=== PATIENT | female | born 1985 | race Caucasian/White ===

== ENCOUNTER → 2019-04-07 08:39 | Outpatient (BNVA) | payer MEDICARE, SELFPAY | PROVIDERS: Family Provider Family Medicine; PCP Family Medicine; Referring Provider Nurse Practitioner Family; Visit Provider Specialist | DX: R25.1 Tremor, unspecified (principal); M25.531 Pain in right wrist; M25.539 Pain in unspecified wrist | CPT/HCPCS: 95908 ==

== ENCOUNTER → 2019-04-22 08:54 | Outpatient (BNVA) | payer MEDICARE, SELFPAY | PROVIDERS: Family Provider Family Medicine; PCP Family Medicine; Visit Provider Nurse Practitioner Psychiatric/Mental Health | DX: F31.62 Bipolar disorder, current episode mixed, moderate (principal); F41.0 Panic disorder [episodic paroxysmal anxiety]; F70 Mild intellectual disabilities | CPT/HCPCS: 99213 ==

== ENCOUNTER → 2019-05-25 07:40 | Outpatient (BNVA) | payer MEDICARE, SELFPAY | PROVIDERS: Family Provider Family Medicine; PCP Family Medicine; Visit Provider Nurse Practitioner Psychiatric/Mental Health | DX: F31.62 Bipolar disorder, current episode mixed, moderate (principal); F41.0 Panic disorder [episodic paroxysmal anxiety]; F70 Mild intellectual disabilities | CPT/HCPCS: 99214 ==

== ENCOUNTER → 2019-06-15 08:15 | Outpatient (BNVA) | payer MEDICARE, SELFPAY | PROVIDERS: Family Provider Family Medicine; PCP Family Medicine; Visit Provider Nurse Practitioner Psychiatric/Mental Health | DX: F31.62 Bipolar disorder, current episode mixed, moderate (principal); F41.0 Panic disorder [episodic paroxysmal anxiety]; F70 Mild intellectual disabilities | CPT/HCPCS: 99214 ==

== ENCOUNTER → 2019-07-12 08:08 | Outpatient (BNVA) | payer MEDICARE, SELFPAY | PROVIDERS: Family Provider Family Medicine; PCP Family Medicine; Visit Provider Nurse Practitioner Psychiatric/Mental Health | DX: F31.62 Bipolar disorder, current episode mixed, moderate (principal); F41.0 Panic disorder [episodic paroxysmal anxiety]; F70 Mild intellectual disabilities | CPT/HCPCS: 99214 ==

== ENCOUNTER 2019-07-28 16:41 | Inpatient (IN) | payer MEDICARE, SELFPAY ==
[2019-07-28 16:49] VITALS: BP 151/99; PULSE 120; RESP 20; TEMP 37.3; O2SAT 98; BMI 46.5
[2019-07-28 16:59] VITALS: O2SAT 97
--- NOTE | 2019-07-28 17:08 | W.ED.OVERDOS ---
Documented by User: You Rudd DO 07/29/19 18:31 HPI - Overdose General: Chief Complaint: Overdose Stated Complaint: intentional overdose Time Seen by Provider: 07/28/19 16:53 History of Present Illness: HPI Narrative: 33-year-old female presents emergency room after an overdose of hydrocodone. She has an empty bottle of hydrocodone 06/26/2024 claiming she took 4 to 26 tablets. She had gotten into a fight with her who claims he was going to divorce her she got quite angry and took those then with the intent of harming herself at about 630 this afternoon 1/2-hour before presentation to the emergency room she did admit and rescue for this attempt was likely. She has had previous suicide attempts in the past x2 is a younger child. She denies any recent illness any GI or symptoms any fever sweats or chills. MD complaint: intentional overdose Onset (ago): minute(s) (30) Time: 16:30 Timing confirmed by: family member Review of Systems Const: Denies: fever(s), chills, body aches, change in appetite, fatigue or malaise ENMT: Denies: throat pain, ear or mastoid pain, nasal discharge or nasal congestion Card: Denies: chest pain, edema, dyspnea on exertion or orthopnea Resp: Denies: dyspnea, productive cough or non-productive cough GI: Denies: abdominal pain, nausea, vomiting, hematemesis, coffee ground emesis, diarrhea, constipation, bloating, hematochezia or melena : Denies: flank pain, difficulty voiding, dysuria, urinary frequency or urinary urgency Skin/Breast: Denies: rash or pruritus PFSH ED PFSH: Medical History Bipolar disorder, current episode mixed, moderate Idiopathic mild intellectual disability Panic disorder without agoraphobia with moderate panic attacks Social History Smoking and tobacco status: never smoked Female Reproductive History: Date of last menstrual period: 07/28/19 Physical Exam Const: COMMON NORMALS: no acute distress GENERAL APPEARANCE: cooperative and comfortable ORIENTATION/CONSCIOUSNESS: Yes awake, Yes oriented to person, Yes oriented to place and Yes oriented to time HENMT: COMMON NORMALS: normocephalic, atraumatic, hearing grossly normal bilaterally, external ears normal, EAC's normal, TM's normal bilaterally, Normal nasal mucous membranes and turbinates present, moist oral mucous membranes and oropharynx normal HEAD & SCALP: normocephalic and atraumatic NOSE: Normal nasal mucous membranes and turbinates present EXTERNAL EAR: Yes external ears normal EXTERNAL AUDITORY CANAL: EAC's normal TYMPANIC MEMBRANE: TM's normal bilaterally Eye: COMMON NORMALS: Equal, round and reactive pupils present, EOMs intact bilaterally, conjunctivae normal and no scleral icterus CONJUNCTIVA: Yes conjunctivae normal PUPIL: Yes Equal, round and reactive pupils present Neck/C-Spine: COMMON NORMALS: full ROM, no lymphadenopathy, supple and no JVD Lymph: LYMPHATIC: no lymphadenopathy noted and no lymphedema noted Resp: COMMON NORMALS: normal respiratory effort, No retractions, No use of accessory muscles and clear to auscultation bilaterally AUSCULTATION: clear to auscultation bilaterally Cardio: COMMON NORMALS: no JVD, regular rate, regular rhythm and No murmurs present (Cardio) RATE: regular rate RHYTHM: regular rhythm GI: COMMON NORMALS: Soft to palpation and No hepatosplenomegaly present AUSCULTATION: Yes normoactive bowel sounds PALPATION: Yes Soft to palpation, No Tenderness to palpation present (GI), No Guarding due to palpation present (GI) and Yes No hepatosplenomegaly present Extremity: COMMON NORMALS: normal to inspection, capillary refill normal, no clubbing, cyanosis or edema, no calf tenderness and no pedal edema Neuro: SENSORIUM/ORIENTATION: Yes oriented to person, Yes oriented to place and Yes oriented to time Skin: COMMON NORMALS: no rashes or lesions noted GENERAL SKIN EXAM: no rashes or lesions noted Course Vital Signs: Vital signs: Vital Signs Temperature 98.7 F 07/29/19 14:00 Pulse Rate 104 H 07/29/19 14:00 Respiratory Rate 18 07/29/19 14:00 Blood Pressure 132/90 07/29/19 14:00 Pulse Oximetry 98 07/29/19 14:00 MDM - Overdose MDM Narrative: Medical decision making narrative: Care turned over at change of shift to Dr. Estrada. Initial acetaminophen level was in the normal range. She will need another level to further evaluate whether or not she is safe to go to the psychiatric floor or if she will need to go to the ICU for the potential overdose see Dr. Estrada's notes for final diagnosis and definitive disposition Lab Data: Labs: Lab Results 07/28/19 07/28/19 07/28/19 Range/Units 00:58 17:20 17:20 WBC 9.8 (4.0-10.0) 10^3/ uL RBC 4.78 (4.1-5.3) 10^6/u L Hgb 14.0 (11.5-15.3) g/dL Hct 43.4 (37.0-47.0) % MCV 90.8 (81-99) fL MCH 29.3 (28.0-34.0) pg MCHC 32.3 (30.0-36.0) g/dL RDW 12.4 (12.1-15.1) % Plt Count 344 (130-400) 10^3/c mm MPV 10.3 (7.4-10.4) fL Neut % (Auto) 55.4 % Lymph % (Auto) 33.1 % Stevens % (Auto) 7.0 % Eos % (Auto) 3.0 % Baso % (Auto) 1.1 % Neut # (Auto) 5.4 (1.8-7.7) 10^3/u L Lymph # (Auto) 3.2 (0.8-4.8) 10^3/u L Stevens # (Auto) 0.7 (0.2-0.9) 10^3/u L Eos # (Auto) 0.3 (0.0-0.8) 10^3/u L Baso # (Auto) 0.1 (0.0-0.1) 10^3/u L Nucleated RBC % (a uto) 0 % Nucleated RBCs # 0.0 /100WBC Specimen Type Sample Site ABG pH (7.35-7.45) ABG pCO2 (35-45) mmHg ABG pO2 (80.0-100.0) mmH g ABG HCO3 (22-26) mmol/L ABG Base Excess (-2.0-2.0) mmol/ L John Test Hematocrit (37-47) % O2 Delivery Device Finishing Room Operator ID Sodium 140 (136-145) mmol/L Potassium 3.7 (3.5-5.1) mmol/L Chloride 103 (98-107) mmol/L Carbon Dioxide 21 L (22-29) mmol/L Anion Gap 19.7 H (5-19) BUN 13 (6-20) mg/dL Creatinine 0.9 (0.5-0.9) mg/dL GFR Calculation 73.0 L (90-130) mL/min Glucose 100 (65-115) mg/dL Calculated Osmolal ity 286 (285-295) mOsm/k g Lactic Acid (0.5-2.2) mmol/L Lactic Acid (Sepsi s) 2.4 H (0.5-2.2) mmol/L Calcium 10.2 (8.5-10.5) mg/dL Total Bilirubin 0.5 (0.15-1.2) mg/dL AST 32 (0-32) U/L ALT 38 H (0-33) U/L Alkaline Phosphata se 75 (35-105) IU/L Total Protein 7.9 (6.6-8.7) g/dL Albumin 4.9 (3.5-5.2) g/dL Globulin 3.0 (1.3-4.6) g/dL TSH 3.44 (0.27-4.20) uIU/ mL HCG, Qual (Negative) Urine Color (Yellow) Urine Appearance (CLEAR) Urine pH (5-7) Ur Specific Gravit y (1.005-1.030) Urine Protein (Negative) Urine Glucose (UA) (Normal) Urine Ketones (Negative) Urine Blood (Negative) Urine Nitrate (Negative) Urine Bilirubin (NEGATIVE) Urine Urobilinogen (Negative) mg/dL Ur Leukocyte Haley ase (Negative) Urine RBC (0-2) /hpf Urine WBC (0-5) /hpf Ur Squamous Epith Cells (0-5) Calcium Oxalate Cr ystal /hpf Amorphous Sediment Urine Bacteria (NONE) Fine Granular Cast s /lpf Salicylates 0.6 L (3-10) mg/dL Urine Opiates Scre en (Negative) ng/mL Acetaminophen 10.8 (10-30) ug/mL Ur Barbiturates Sc reen (Negative) ng/mL Ur Phencyclidine S crn (Negative) ng/mL Ur Amphetamines Sc reen (Negative) ng/mL U Benzodiazepines Scrn (Negative) ng/mL Urine Cocaine Scre en (Negative) ng/mL U Marijuana (THC) Screen (Negative) ng/mL Ethyl Alcohol < 10 (0-10) mg/dL 07/28/19 07/28/19 07/28/19 Range/Units 18:20 18:20 18:20 WBC (4.0-10.0) 10^3/ uL RBC (4.1-5.3) 10^6/u L Hgb (11.5-15.3) g/dL Hct (37.0-47.0) % MCV (81-99) fL MCH (28.0-34.0) pg MCHC (30.0-36.0) g/dL RDW (12.1-15.1) % Plt Count (130-400) 10^3/c mm MPV (7.4-10.4) fL Neut % (Auto) % Lymph % (Auto) % Stevens % (Auto) % Eos % (Auto) % Baso % (Auto) % Neut # (Auto) (1.8-7.7) 10^3/u L Lymph # (Auto) (0.8-4.8) 10^3/u L Stevens # (Auto) (0.2-0.9) 10^3/u L Eos # (Auto) (0.0-0.8) 10^3/u L Baso # (Auto) (0.0-0.1) 10^3/u L Nucleated RBC % (a uto) % Nucleated RBCs # /100WBC Specimen Type Sample Site ABG pH (7.35-7.45) ABG pCO2 (35-45) mmHg ABG pO2 (80.0-100.0) mmH g ABG HCO3 (22-26) mmol/L ABG Base Excess (-2.0-2.0) mmol/ L John Test Hematocrit (37-47) % O2 Delivery Device Finishing Room Operator ID Sodium (136-145) mmol/L Potassium (3.5-5.1) mmol/L Chloride (98-107) mmol/L Carbon Dioxide (22-29) mmol/L Anion Gap (5-19) BUN (6-20) mg/dL Creatinine (0.5-0.9) mg/dL GFR Calculation (90-130) mL/min Glucose (65-115) mg/dL Calculated Osmolal ity (285-295) mOsm/k g Lactic Acid (0.5-2.2) mmol/L Lactic Acid (Sepsi s) (0.5-2.2) mmol/L Calcium (8.5-10.5) mg/dL Total Bilirubin (0.15-1.2) mg/dL AST (0-32) U/L ALT (0-33) U/L Alkaline Phosphata se (35-105) IU/L Total Protein (6.6-8.7) g/dL Albumin (3.5-5.2) g/dL Globulin (1.3-4.6) g/dL TSH (0.27-4.20) uIU/ mL HCG, Qual Negative (Negative) Urine Color Yellow (Yellow) Urine Appearance Hazy A (CLEAR) Urine pH 5 (5-7) Ur Specific Gravit y 1.030 (1.005-1.030) Urine Protein 1+ H (Negative) Urine Glucose (UA) Norm (Normal) Urine Ketones Negative (Negative) Urine Blood Neg (Negative) Urine Nitrate Negative (Negative) Urine Bilirubin Neg (NEGATIVE) Urine Urobilinogen Norm (Negative) mg/dL Ur Leukocyte Haley ase Negative (Negative) Urine RBC 0-4 H (0-2) /hpf Urine WBC None (0-5) /hpf Ur Squamous Epith Cells 0-4 H (0-5) Calcium Oxalate Cr ystal Too numerous to c nt H /hpf Amorphous Sediment 1+ Urine Bacteria 1+ H (NONE) Fine Granular Cast s 15-25 H /lpf Salicylates (3-10) mg/dL Urine Opiates Scre en Positive H (Negative) ng/mL Acetaminophen (10-30) ug/mL Ur Barbiturates Sc reen Negative (Negative) ng/mL Ur Phencyclidine S crn Negative (Negative) ng/mL Ur Amphetamines Sc reen Negative (Negative) ng/mL U Benzodiazepines Scrn Negative (Negative) ng/mL Urine Cocaine Scre en Negative (Negative) ng/mL U Marijuana (THC) Screen Negative (Negative) ng/mL Ethyl Alcohol (0-10) mg/dL 07/28/19 07/28/19 07/28/19 Range/Units 20:30 20:58 22:00 WBC (4.0-10.0) 10^3/ uL RBC (4.1-5.3) 10^6/u L Hgb (11.5-15.3) g/dL Hct (37.0-47.0) % MCV (81-99) fL MCH (28.0-34.0) pg MCHC (30.0-36.0) g/dL RDW (12.1-15.1) % Plt Count (130-400) 10^3/c mm MPV (7.4-10.4) fL Neut % (Auto) % Lymph % (Auto) % Stevens % (Auto) % Eos % (Auto) % Baso % (Auto) % Neut # (Auto) (1.8-7.7) 10^3/u L Lymph # (Auto) (0.8-4.8) 10^3/u L Stevens # (Auto) (0.2-0.9) 10^3/u L Eos # (Auto) (0.0-0.8) 10^3/u L Baso # (Auto) (0.0-0.1) 10^3/u L Nucleated RBC % (a uto) % Nucleated RBCs # /100WBC Specimen Type Venous Sample Site Not specified ABG pH 7.40 (7.35-7.45) ABG pCO2 36.7 (35-45) mmHg ABG pO2 51.1 L (80.0-100.0) mmH g ABG HCO3 22.9 (22-26) mmol/L ABG Base Excess -1.5 (-2.0-2.0) mmol/ L John Test N/a Hematocrit 45.0 (37-47) % O2 Delivery Device Room air Finishing Room Operator ID josé manuel Sodium (136-145) mmol/L Potassium (3.5-5.1) mmol/L Chloride (98-107) mmol/L Carbon Dioxide (22-29) mmol/L Anion Gap (5-19) BUN (6-20) mg/dL Creatinine (0.5-0.9) mg/dL GFR Calculation (90-130) mL/min Glucose (65-115) mg/dL Calculated Osmolal ity (285-295) mOsm/k g Lactic Acid 2.2 (0.5-2.2) mmol/L Lactic Acid (Sepsi s) (0.5-2.2) mmol/L Calcium (8.5-10.5) mg/dL Total Bilirubin (0.15-1.2) mg/dL AST (0-32) U/L ALT (0-33) U/L Alkaline Phosphata se (35-105) IU/L Total Protein (6.6-8.7) g/dL Albumin (3.5-5.2) g/dL Globulin (1.3-4.6) g/dL TSH (0.27-4.20) uIU/ mL HCG, Qual (Negative) Urine Color (Yellow) Urine Appearance (CLEAR) Urine pH (5-7) Ur Specific Gravit y (1.005-1.030) Urine Protein (Negative) Urine Glucose (UA) (Normal) Urine Ketones (Negative) Urine Blood (Negative) Urine Nitrate (Negative) Urine Bilirubin (NEGATIVE) Urine Urobilinogen (Negative) mg/dL Ur Leukocyte Haley ase (Negative) Urine RBC (0-2) /hpf Urine WBC (0-5) /hpf Ur Squamous Epith Cells (0-5) Calcium Oxalate Cr ystal /hpf Amorphous Sediment Urine Bacteria (NONE) Fine Granular Cast s /lpf Salicylates (3-10) mg/dL Urine Opiates Scre en (Negative) ng/mL Acetaminophen 10.2 (10-30) ug/mL Ur Barbiturates Sc reen (Negative) ng/mL Ur Phencyclidine S crn (Negative) ng/mL Ur Amphetamines Sc reen (Negative) ng/mL U Benzodiazepines Scrn (Negative) ng/mL Urine Cocaine Scre en (Negative) ng/mL U Marijuana (THC) Screen (Negative) ng/mL Ethyl Alcohol (0-10) mg/dL Discharge Plan Discharge Patient Disposition: Admitted As Inpatient Admit Provider: Jalil Lockhart Clinical Impression: Suicidal ideation, Overdose Condition: Stable Referrals: Jarrod Noriega MD [Physician] - 08/10/19 1:30 pm Aisha Dennison MD [Primary Care Provider] - Lisa Ramos PMHNP [Staff Physician] - 09/06/19 1:30 pm Discharge Date/Time: 07/29/19 00:12 Sign Out Sign Out Data: Patient Sign Out occurred on 07/28/19 at 18:43. Patient's care was discussed, and care was transferred from to Alma Rosa Coffman. Coding Level of Care Code ED Mechanical Cad Designer for Chg Fwd Exam Comprehensive Documented by User: Alma Rosa Coffman 07/28/19 23:29 HPI - Overdose General: Chief Complaint: Overdose Stated Complaint: intentional overdose Time Seen by Provider: 07/28/19 16:53 PFSH ED PFSH: Medical History Bipolar disorder, current episode mixed, moderate Idiopathic mild intellectual disability Panic disorder without agoraphobia with moderate panic attacks Social History Smoking and tobacco status: never smoked Course ED course: 1800 -Case inherited by me at change of shift from Dr. Rudd. Please see his portion of this note for his history, physical exam and medical decision-making notes. Patient affirms to me that she took 24 [place] tablets at 4:30 PM. Patient at this time exhibits no sign of drowsiness, upset stomach or otherwise. Case was reviewed with poison control and based upon the amount of Tylenol this is not a toxic ingestion to the patient. I will go ahead and check a 4-hour Tylenol level just to be safe but at this time it looks as though the patient will not need ICU admission. Vital Signs: Vital signs: Vital Signs Temperature 98.7 F 07/29/19 14:00 Pulse Rate 104 H 07/29/19 14:00 Respiratory Rate 18 07/29/19 14:00 Blood Pressure 132/90 07/29/19 14:00 Pulse Oximetry 98 07/29/19 14:00 MDM - Overdose MDM Narrative: Medical decision making narrative: Colleen is a nice 33-year-old female comes in stating she took 24 06/26/2024 [place] tablets. The patient never exhibited any sign of opiate toxicity. Her Tylenol level calculated was below the lethal ingestion limit but also she had no evidence of Tylenol toxicity on the lab. Oddly she had a urinalysis that showed too numerous to count calcium oxalate crystals. Patient does not think that she is had a kidney stone before but cannot remember definitively. I reviewed this with poison control and they state with a normal pH on her blood gas, no anion gap and no sign of intoxication or sedation they do not believe there to be any sign of a toxic alcohol. They believe the patient can safely go to the neuropsychiatric unit. I reviewed this with Dr. Lockhart and he is in agreement. Patient's been here almost 7 hours and has not demonstrated any sign of intoxication. I have asked the patient on 2 different occasions and she is adamant she would not do this. She is claiming now that her taking the hydroceles and attention seeking issue but she still wants to go to the [facility]. At this time the patient does appear clinically stable and per poison control's recommendations I will see the patient there. Lab Data: Attestation: I reviewed the patient's lab results. Labs: Lab Results 07/28/19 07/28/19 07/28/19 Range/Units 00:58 17:20 17:20 WBC 9.8 (4.0-10.0) 10^3/ uL RBC 4.78 (4.1-5.3) 10^6/u L Hgb 14.0 (11.5-15.3) g/dL Hct 43.4 (37.0-47.0) % MCV 90.8 (81-99) fL MCH 29.3 (28.0-34.0) pg MCHC 32.3 (30.0-36.0) g/dL RDW 12.4 (12.1-15.1) % Plt Count 344 (130-400) 10^3/c mm MPV 10.3 (7.4-10.4) fL Neut % (Auto) 55.4 % Lymph % (Auto) 33.1 % Stevens % (Auto) 7.0 % Eos % (Auto) 3.0 % Baso % (Auto) 1.1 % Neut # (Auto) 5.4 (1.8-7.7) 10^3/u L Lymph # (Auto) 3.2 (0.8-4.8) 10^3/u L Stevens # (Auto) 0.7 (0.2-0.9) 10^3/u L Eos # (Auto) 0.3 (0.0-0.8) 10^3/u L Baso # (Auto) 0.1 (0.0-0.1) 10^3/u L Nucleated RBC % (a uto) 0 % Nucleated RBCs # 0.0 /100WBC Specimen Type Sample Site ABG pH (7.35-7.45) ABG pCO2 (35-45) mmHg ABG pO2 (80.0-100.0) mmH g ABG HCO3 (22-26) mmol/L ABG Base Excess (-2.0-2.0) mmol/ L John Test Hematocrit (37-47) % O2 Delivery Device Finishing Room Operator ID Sodium 140 (136-145) mmol/L Potassium 3.7 (3.5-5.1) mmol/L Chloride 103 (98-107) mmol/L Carbon Dioxide 21 L (22-29) mmol/L Anion Gap 19.7 H (5-19) BUN 13 (6-20) mg/dL Creatinine 0.9 (0.5-0.9) mg/dL GFR Calculation 73.0 L (90-130) mL/min Glucose 100 (65-115) mg/dL Calculated Osmolal ity 286 (285-295) mOsm/k g Lactic Acid (0.5-2.2) mmol/L Lactic Acid (Sepsi s) 2.4 H (0.5-2.2) mmol/L Calcium 10.2 (8.5-10.5) mg/dL Total Bilirubin 0.5 (0.15-1.2) mg/dL AST 32 (0-32) U/L ALT 38 H (0-33) U/L Alkaline Phosphata se 75 (35-105) IU/L Total Protein 7.9 (6.6-8.7) g/dL Albumin 4.9 (3.5-5.2) g/dL Globulin 3.0 (1.3-4.6) g/dL TSH 3.44 (0.27-4.20) uIU/ mL HCG, Qual (Negative) Urine Color (Yellow) Urine Appearance (CLEAR) Urine pH (5-7) Ur Specific Gravit y (1.005-1.030) Urine Protein (Negative) Urine Glucose (UA) (Normal) Urine Ketones (Negative) Urine Blood (Negative) Urine Nitrate (Negative) Urine Bilirubin (NEGATIVE) Urine Urobilinogen (Negative) mg/dL Ur Leukocyte Haley ase (Negative) Urine RBC (0-2) /hpf Urine WBC (0-5) /hpf Ur Squamous Epith Cells (0-5) Calcium Oxalate Cr ystal /hpf Amorphous Sediment Urine Bacteria (NONE) Fine Granular Cast s /lpf Salicylates 0.6 L (3-10) mg/dL Urine Opiates Scre en (Negative) ng/mL Acetaminophen 10.8 (10-30) ug/mL Ur Barbiturates Sc reen (Negative) ng/mL Ur Phencyclidine S crn (Negative) ng/mL Ur Amphetamines Sc reen (Negative) ng/mL U Benzodiazepines Scrn (Negative) ng/mL Urine Cocaine Scre en (Negative) ng/mL U Marijuana (THC) Screen (Negative) ng/mL Ethyl Alcohol < 10 (0-10) mg/dL 07/28/19 07/28/19 07/28/19 Range/Units 18:20 18:20 18:20 WBC (4.0-10.0) 10^3/ uL RBC (4.1-5.3) 10^6/u L Hgb (11.5-15.3) g/dL Hct (37.0-47.0) % MCV (81-99) fL MCH (28.0-34.0) pg MCHC (30.0-36.0) g/dL RDW (12.1-15.1) % Plt Count (130-400) 10^3/c mm MPV (7.4-10.4) fL Neut % (Auto) % Lymph % (Auto) % Stevens % (Auto) % Eos % (Auto) % Baso % (Auto) % Neut # (Auto) (1.8-7.7) 10^3/u L Lymph # (Auto) (0.8-4.8) 10^3/u L Stevens # (Auto) (0.2-0.9) 10^3/u L Eos # (Auto) (0.0-0.8) 10^3/u L Baso # (Auto) (0.0-0.1) 10^3/u L Nucleated RBC % (a uto) % Nucleated RBCs # /100WBC Specimen Type Sample Site ABG pH (7.35-7.45) ABG pCO2 (35-45) mmHg ABG pO2 (80.0-100.0) mmH g ABG HCO3 (22-26) mmol/L ABG Base Excess (-2.0-2.0) mmol/ L John Test Hematocrit (37-47) % O2 Delivery Device Finishing Room Operator ID Sodium (136-145) mmol/L Potassium (3.5-5.1) mmol/L Chloride (98-107) mmol/L Carbon Dioxide (22-29) mmol/L Anion Gap (5-19) BUN (6-20) mg/dL Creatinine (0.5-0.9) mg/dL GFR Calculation (90-130) mL/min Glucose (65-115) mg/dL Calculated Osmolal ity (285-295) mOsm/k g Lactic Acid (0.5-2.2) mmol/L Lactic Acid (Sepsi s) (0.5-2.2) mmol/L Calcium (8.5-10.5) mg/dL Total Bilirubin (0.15-1.2) mg/dL AST (0-32) U/L ALT (0-33) U/L Alkaline Phosphata se (35-105) IU/L Total Protein (6.6-8.7) g/dL Albumin (3.5-5.2) g/dL Globulin (1.3-4.6) g/dL TSH (0.27-4.20) uIU/ mL HCG, Qual Negative (Negative) Urine Color Yellow (Yellow) Urine Appearance Hazy A (CLEAR) Urine pH 5 (5-7) Ur Specific Gravit y 1.030 (1.005-1.030) Urine Protein 1+ H (Negative) Urine Glucose (UA) Norm (Normal) Urine Ketones Negative (Negative) Urine Blood Neg (Negative) Urine Nitrate Negative (Negative) Urine Bilirubin Neg (NEGATIVE) Urine Urobilinogen Norm (Negative) mg/dL Ur Leukocyte Haley ase Negative (Negative) Urine RBC 0-4 H (0-2) /hpf Urine WBC None (0-5) /hpf Ur Squamous Epith Cells 0-4 H (0-5) Calcium Oxalate Cr ystal Too numerous to c nt H /hpf Amorphous Sediment 1+ Urine Bacteria 1+ H (NONE) Fine Granular Cast s 15-25 H /lpf Salicylates (3-10) mg/dL Urine Opiates Scre en Positive H (Negative) ng/mL Acetaminophen (10-30) ug/mL Ur Barbiturates Sc reen Negative (Negative) ng/mL Ur Phencyclidine S crn Negative (Negative) ng/mL Ur Amphetamines Sc reen Negative (Negative) ng/mL U Benzodiazepines Scrn Negative (Negative) ng/mL Urine Cocaine Scre en Negative (Negative) ng/mL U Marijuana (THC) Screen Negative (Negative) ng/mL Ethyl Alcohol (0-10) mg/dL 07/28/19 07/28/19 07/28/19 Range/Units 20:30 20:58 22:00 WBC (4.0-10.0) 10^3/ uL RBC (4.1-5.3) 10^6/u L Hgb (11.5-15.3) g/dL Hct (37.0-47.0) % MCV (81-99) fL MCH (28.0-34.0) pg MCHC (30.0-36.0) g/dL RDW (12.1-15.1) % Plt Count (130-400) 10^3/c mm MPV (7.4-10.4) fL Neut % (Auto) % Lymph % (Auto) % Stevens % (Auto) % Eos % (Auto) % Baso % (Auto) % Neut # (Auto) (1.8-7.7) 10^3/u L Lymph # (Auto) (0.8-4.8) 10^3/u L Stevens # (Auto) (0.2-0.9) 10^3/u L Eos # (Auto) (0.0-0.8) 10^3/u L Baso # (Auto) (0.0-0.1) 10^3/u L Nucleated RBC % (a uto) % Nucleated RBCs # /100WBC Specimen Type Venous Sample Site Not specified ABG pH 7.40 (7.35-7.45) ABG pCO2 36.7 (35-45) mmHg ABG pO2 51.1 L (80.0-100.0) mmH g ABG HCO3 22.9 (22-26) mmol/L ABG Base Excess -1.5 (-2.0-2.0) mmol/ L John Test N/a Hematocrit 45.0 (37-47) % O2 Delivery Device Room air Finishing Room Operator ID josé manuel Sodium (136-145) mmol/L Potassium (3.5-5.1) mmol/L Chloride (98-107) mmol/L Carbon Dioxide (22-29) mmol/L Anion Gap (5-19) BUN (6-20) mg/dL Creatinine (0.5-0.9) mg/dL GFR Calculation (90-130) mL/min Glucose (65-115) mg/dL Calculated Osmolal ity (285-295) mOsm/k g Lactic Acid 2.2 (0.5-2.2) mmol/L Lactic Acid (Sepsi s) (0.5-2.2) mmol/L Calcium (8.5-10.5) mg/dL Total Bilirubin (0.15-1.2) mg/dL AST (0-32) U/L ALT (0-33) U/L Alkaline Phosphata se (35-105) IU/L Total Protein (6.6-8.7) g/dL Albumin (3.5-5.2) g/dL Globulin (1.3-4.6) g/dL TSH (0.27-4.20) uIU/ mL HCG, Qual (Negative) Urine Color (Yellow) Urine Appearance (CLEAR) Urine pH (5-7) Ur Specific Gravit y (1.005-1.030) Urine Protein (Negative) Urine Glucose (UA) (Normal) Urine Ketones (Negative) Urine Blood (Negative) Urine Nitrate (Negative) Urine Bilirubin (NEGATIVE) Urine Urobilinogen (Negative) mg/dL Ur Leukocyte Haley ase (Negative) Urine RBC (0-2) /hpf Urine WBC (0-5) /hpf Ur Squamous Epith Cells (0-5) Calcium Oxalate Cr ystal /hpf Amorphous Sediment Urine Bacteria (NONE) Fine Granular Cast s /lpf Salicylates (3-10) mg/dL Urine Opiates Scre en (Negative) ng/mL Acetaminophen 10.2 (10-30) ug/mL Ur Barbiturates Sc reen (Negative) ng/mL Ur Phencyclidine S crn (Negative) ng/mL Ur Amphetamines Sc reen (Negative) ng/mL U Benzodiazepines Scrn (Negative) ng/mL Urine Cocaine Scre en (Negative) ng/mL U Marijuana (THC) Screen (Negative) ng/mL Ethyl Alcohol (0-10) mg/dL EKG Data^: EKG 1: Attestation: I personally reviewed and interpreted this EKG as follows: EKG interpretation date: 07/28/19 EKG interpretation time: 16:58 Interpretation: Sinus tachycardia at 116 beats a minute, nonspecific ST and T wave changes. Discharge Plan Discharge Patient Disposition: Admitted As Inpatient Admit Provider: Jalil Lockhart Clinical Impression: Suicidal ideation, Overdose Condition: Stable Referrals: Jarrod Noriega MD [Physician] - 08/10/19 1:30 pm Aisha Dennison MD [Primary Care Provider] - Lisa Ramos PMP [Staff Physician] - 09/06/19 1:30 pm Discharge Date/Time: 07/29/19 00:12 Sign Out Sign Out Data: Patient Sign Out occurred on 07/28/19 at 18:43. Patient's care was discussed, and care was transferred from to Alma Rosa Coffman. Coding Level of Care Code ED Mechanical Cad Designer for Chg Fwd Exam Comprehensive
--- NOTE | 2019-07-28 17:17 | ECG_ITS ---
Measurements Intervals [place] Rate: 116 P: 58 FL: 164 QRS: 31 QRSD: 93 T: 31 QT: 319 QTc: 444 SINUS TACHYCARDIA NONSPECIFIC T-WAVE ABNORMALITY ABNORMAL RHYTHM ECG No previous ECG available for comparison Electronically Signed On 07-28-2019 20:57:25 CDT by Krystal Villatoro M.D. [email or web address]
[2019-07-28 17:26] LABS: Basophils # 0.1 10^3/uL (0.0-0.1); Basophils % 1.1 %; Eosinophils # 0.3 10^3/uL (0.0-0.8); Hematocrit 43.4 % (37.0-47.0); Lymphocytes # 3.2 10^3/uL (0.8-4.8); Lymphocytes % 33.1 %; Mean Corpuscular HGB Conc 32.3 g/dL (30.0-36.0); Mean Corpuscular Hemoglobin 29.3 pg (28.0-34.0); Mean Corpuscular Volume 90.8 fL (81-99); Mean Platelet Volume 10.3 fL (7.4-10.4); Monocytes # 0.7 10^3/uL (0.2-0.9); Neutrophils # 5.4 10^3/uL (1.8-7.7); Neutrophils % 55.4 %; Nucleated Red Blood Cells % 0 %; Platelet Count 344 10^3/cmm (130-400); Red Blood Count 4.78 10^6/uL (4.1-5.3); Red Cell Distribution Width 12.4 % (12.1-15.1); White Blood Count 9.8 10^3/uL (4.0-10.0)
[2019-07-28 17:53] LABS: Acetaminophen 10.8 ug/mL (10-30); Alanine Aminotransferase 38 U/L (0-33); Albumin Level 4.9 g/dL (3.5-5.2); Alkaline Phosphatase 75 IU/L (35-105); Anion Gap 19.7 (5-19); Aspartate Amino Transferase 32 U/L (0-32); Blood Urea Nitrogen 13 mg/dL (6-20); Calcium 10.2 mg/dL (8.5-10.5); Carbon Dioxide 21 mmol/L (22-29); Chloride 103 mmol/L (98-107); Glucose 100 mg/dL (65-115); Osmolality Calculated 286 mOsm/kg (285-295); Potassium 3.7 mmol/L (3.5-5.1); Salicylate 0.6 mg/dL (3-10); Sodium 140 mmol/L (136-145); Thyroid Stimulating Hormone 3.44 uIU/mL (0.27-4.20); Total Bilirubin 0.5 mg/dL (0.15-1.2); Total Protein 7.9 g/dL (6.6-8.7)
[2019-07-28 18:15] LABS: Alcohol Level < 10 mg/dL (0-10)
[2019-07-28 18:22] VITALS: BP 135/94; PULSE 113; RESP 12; O2SAT 95
[2019-07-28 18:39] LABS: Amphetamines Screen Urine Negative (Negative); Barbiturates Screen Urine Negative (Negative); Benzodiazepines Screen Urine Negative (Negative); Cocaine Screen Urine Negative (Negative); Opiate Screen Urine Positive (Negative); PCP Screen Urine Negative (Negative); THC Screen Urine Negative (Negative)
[2019-07-28 18:41] LABS: HCG Qualitative Urine. Negative (Negative)
[2019-07-28 19:02] VITALS: BP 158/104; PULSE 112; O2SAT 93
[2019-07-28 19:02] LABS: Add Urine Microscopic? YES; Bilirubin Urine Neg (NEGATIVE); Blood Urine Neg (Negative); Glucose Urine UA Norm (Normal); Ketones Urine Negative (Negative); Leukocyte Esterase Urine Negative (Negative); Nitrate Urine Negative (Negative); Protein Urine 1+ (Negative); Urine Appearance Hazy (CLEAR); Urine Color Yellow (Yellow); Urobilinogen Urine Norm (Negative); pH Urine 5 (5-7)
[2019-07-28 19:11] LABS: Fine Granular Casts Urine 15-25 /lpf; RBC Urine 0-4 /hpf (0-2); Squamous Epithelial Cell Urine 0-4 (0-5)
[2019-07-28 19:12] LABS: Add Urine Culture? No; Amorphous Sediment Urine 1+; Bacteria Urine 1+; Calcium Oxalate Crystals Urine TOO NUMEROUS TO CNT /hpf
[2019-07-28 21:06] VITALS: BP 112/72; PULSE 107; RESP 20; O2SAT 93
[2019-07-28 21:13] LABS: Acetaminophen 10.2 ug/mL (10-30)
[2019-07-28 21:19] LABS: Lactic Sepsis W/Reflex 2.2 mmol/L (0.5-2.2)
[2019-07-28 22:14] LABS: ABG PCO2 36.7 mmHg (35-45); Base Excess ABG -1.5 mmol/L (-2.0-2.0); Blood Gas Sample Site Not specified; Blood Gas Sample Type Venous; HCO3 ABG 22.9 mmol/L (22-26); Oxygen Device ROOM AIR; PO2 ABG 51.1 mmHg (80.0-100.0)
[2019-07-28 22:47] LABS: Reflex Lactate Order REFLEX LACTIC ORDERD
--- NOTE | 2019-07-28 22:58 | XR_ITS ---
WS: [id number] XR KUB portable [id number] REASON FOR EXAM: ingestion FINDINGS: An intrauterine device is seen device is deviated to the left of the midline. Consideration of follow-up with ultrasound to confirm the positioning of the IUD due to the abnormal positioning. The remaining abdomen showed no obstructive changes scattered gas is seen. No unusual calcification. XR/XR KUB portable [id number] IMPRESSION: Questionable abnormal positioning of an intrauterine device we recommend follow -up with ultrasound.
[2019-07-29 00:25] LABS: Lactic Acid level (Lactate) 2.4 mmol/L (0.5-2.2)
[2019-07-29 00:32] VITALS: BP 142/93; PULSE 11; RESP 18; TEMP 37; O2SAT 98
[2019-07-29 06:00] VITALS: BP 132/90; PULSE 104; RESP 22; TEMP 37.2; O2SAT 96
[2019-07-29 06:25] LABS: Glucose Point of Care 102 mg/dL (70-110)
[2019-07-29] MEDS: lamoTRIgine 100 mg Tablet 400 MG PO (06:56)
[2019-07-29] MEDS: desvenlafaxine 50 mg Tablet PO (06:56)
[2019-07-29] MEDS: levothyroxine 100 mcg Tablet 200 MCG PO (09:30)
[2019-07-29] MEDS: levothyroxine 25 mcg Tablet PO (09:31)
[2019-07-29 14:00] VITALS: BP 132/90; PULSE 104; RESP 18; TEMP 37.1; O2SAT 98
[2019-07-29] MEDS: acetaminophen 325 mg Tablet 650 MG PO (17:25)
[2019-07-29 18:12] LABS: Glucose Point of Care 137 mg/dL (70-110)
--- NOTE | 2019-07-29 19:27 | PM.NHP ---
Providers/Chief Complaint Admitting Physician: Jalil Lockhart MD Primary Care Provider: Aisha Dennison MD Chief Complaint: poss od hydrocodone HPI NPU History of Present Illness Colleen Moreno is a 33 year old female who has been treated for mood disorder by Lisa Ramos, a psychiatric nurse practitioner over at [facility]. She had been doing well on current pharmacotherapy but she was thrown a curve ball when her announced he wanted her divorce. She impulsively took an overdose of hydrocodone. She had gotten into a fight with her , who was going to divorce her. She got quite angry and took those then with the intent of harming herself at about 630 this afternoon 1/2-hour before presentation to the emergency room. She did admit that rescue for this attempt was likely. She was hospitalized for previous suicide attempts at age 13 and again at age 20. She denies any recent illness. Review of Systems Narrative: Const Denies: fever(s), chills, body aches, change in appetite, fatigue or malaise ENMT Denies: throat pain, ear or mastoid pain, nasal discharge or nasal congestion Card Denies: chest pain, edema, dyspnea on exertion or orthopnea Resp Denies: dyspnea, productive cough or non-productive cough GI Denies: abdominal pain, nausea, vomiting, hematemesis, coffee ground emesis, diarrhea, constipation, bloating, hematochezia or melena Denies: flank pain, difficulty voiding, dysuria, urinary frequency or urinary urgency Skin/Breast Denies: rash or pruritus Meds NPU Home Medications Medication Instructions Recorded Confirmed Last Taken Type melatonin 3 mg capsule 6 mg PO BEDTIME PRN cap 03/04/19 07/28/19 07/27/19 History Lamictal 400 mg PO QAM 07/28/19 07/28/19 07/28/19 History Pristiq 50 mg PO QAM 07/28/19 07/28/19 07/28/19 History cariprazine [Vraylar] 3 mg PO QAM 07/28/19 07/28/19 07/28/19 History clonazepam [Klonopin] 0.5 mg PO BID PRN 07/28/19 07/28/19 07/28/19 History levothyroxine 25 mcg PO DAILY 07/28/19 07/28/19 07/28/19 History levothyroxine 200 mcg PO DAILY 07/28/19 07/28/19 07/28/19 History metformin 2,000 mg PO DAILY 07/28/19 07/28/19 07/28/19 History Allergies Allergy/AdvReac Type Severity Reaction Status Date / Time cefaclor [From Ceclor] Allergy Unknown Verified 04/07/19 09:07 PFSH NPU PFSH: Medical History Bipolar disorder, current episode mixed, moderate Idiopathic mild intellectual disability Panic disorder without agoraphobia with moderate panic attacks Family History (Updated 07/29/19 @ 19:39 by Hitesh Proctor) Father Psychiatric illness Grandmother Psychiatric illness Bipolar disorder Family/Other Psychiatric illness Great grandmother on her father's side was schizophrenic. Social History Smoking and tobacco status: never smoked Mental Status Exam MSE Comments: This is a 33-year-old female who is neatly dressed and has well-kept hair. Mood is dysphoric and affect is sad, sometimes tearful. She acknowledges that she is ashamed that she put her 3 and 4-year-old baby's through this and never wants to do it again. Thought processes are integrated and free of any racing, blocking or looseness of association. Speech is of normal rate and volume, without dysarthria, aprosody or pressure. Cognitive function appears to be within normal range. She appears to have significant insight and some judgment. She now affirmatively denies any suicidal ideation, plan or intent. She never was homicidal. Vitals/I&O/Wt Last Vital Signs Temp 98.7 F 07/29/19 14:00 Pulse 104 H 07/29/19 14:00 Resp 18 07/29/19 14:00 BP 132/90 07/29/19 14:00 Pulse Ox 98 07/29/19 14:00 Weight last 48 hrs Weight 246 lb Physical Exam Narrative: EXAM NARRATIVE: Const: COMMON NORMALS: no acute distress GENERAL APPEARANCE: cooperative and comfortable ORIENTATION/CONSCIOUSNESS: Yes awake, Yes oriented to person, Yes oriented to place and Yes oriented to time HENMT: COMMON NORMALS: normocephalic, atraumatic, hearing grossly normal bilaterally, external ears normal, EAC's normal, TM's normal bilaterally, Normal nasal mucous membranes and turbinates present, moist oral mucous membranes and oropharynx normal HEAD & SCALP: normocephalic and atraumatic NOSE: Normal nasal mucous membranes and turbinates present EXTERNAL EAR: Yes external ears normal EXTERNAL AUDITORY CANAL: EAC's normal TYMPANIC MEMBRANE: TM's normal bilaterally Eye: COMMON NORMALS: Equal, round and reactive pupils present, EOMs intact bilaterally, conjunctivae normal and no scleral icterus CONJUNCTIVA: Yes conjunctivae normal PUPIL: Yes Equal, round and reactive pupils present Neck/C-Spine: COMMON NORMALS: full ROM, no lymphadenopathy, supple and no JVD Lymph: LYMPHATIC: no lymphadenopathy noted and no lymphedema noted Resp: COMMON NORMALS: normal respiratory effort, No retractions, No use of accessory muscles and clear to auscultation bilaterally AUSCULTATION: clear to auscultation bilaterally Cardio: COMMON NORMALS: no JVD, regular rate, regular rhythm and No murmurs present (Cardio) RATE: regular rate RHYTHM: regular rhythm GI: COMMON NORMALS: Soft to palpation and No hepatosplenomegaly present AUSCULTATION: Yes normoactive bowel sounds PALPATION: Yes Soft to palpation, No Tenderness to palpation present (GI), No Guarding due to palpation present (GI) and Yes No hepatosplenomegaly present Extremity: COMMON NORMALS: normal to inspection, capillary refill normal, no clubbing, cyanosis or edema, no calf tenderness and no pedal edema Neuro: SENSORIUM/ORIENTATION: Yes oriented to person, Yes oriented to place and Yes oriented to time Skin: COMMON NORMALS: no rashes or lesions noted GENERAL SKIN EXAM: no rashes or lesions noted Data NPU : 07/28/19 17:20 07/28/19 17:20 A&P Assessment and plan (1) Suicidal ideation: This problem is waning. It may already be resolved. Observation for several days will tell us what we need to now. Status: Acute (2) Overdose: Stabilized in the emergency room. Status: Acute (3) Panic disorder without agoraphobia with moderate panic attacks: The patient was properly treated by Lisa Lieurance. Status: Chronic (4) Bipolar disorder, current episode mixed, moderate: Likewise. Status: Chronic Involuntary Hold Information 96 Hour Hold: 96 Hour Involuntary Admission: Yes Attestations NPU Medical Necessity Statement*: I anticipate 3 to 4 days before we release her to outpatient continuing care at [facility]. Time Spent in Patient Care: Greater than 35 minutes (>than 50% of time spent in counselling and/or direct pt care on unit). Coding Level of Care Code Acute Education Faculty Member for [employer] Fwd Diagnoses Suicidal ideation R45.851 Overdose T50.901A Panic disorder without agoraphobia with moderate panic attacks F41.0 Bipolar disorder, current episode mixed, moderate F31.62
[2019-07-29 20:41] VITALS: BP 148/72; PULSE 93; RESP 22; TEMP 37; O2SAT 97
[2019-07-29] MEDS: trazodone 50 mg Tablet PO (21:26)
[2019-07-30 06:00] VITALS: BP 134/89; PULSE 94; RESP 20; TEMP 37.2; O2SAT 96
[2019-07-30 06:22] LABS: Glucose Point of Care 96 mg/dL (70-110)
[2019-07-30] MEDS: lamoTRIgine 100 mg Tablet 400 MG PO (06:34)
[2019-07-30] MEDS: desvenlafaxine 50 mg Tablet PO (06:35)
[2019-07-30] MEDS: acetaminophen 325 mg Tablet 650 MG PO (06:52)
[2019-07-30] MEDS: levothyroxine 100 mcg Tablet 200 MCG PO (08:26)
[2019-07-30] MEDS: levothyroxine 25 mcg Tablet PO (08:26)
--- NOTE | 2019-07-30 11:56 | PM.NDC ---
Diagnoses at Discharge Discharge Diagnosis (1) Suicidal ideation: Status: Acute Problem details: Patient was had with her 's announcement he wanted her divorce. She became angry and suicidal. She is since re-stabilized (2) Overdose: Status: Acute Problem details: The patient appears not to have sustained lasting complications of her overdose (3) Panic disorder without agoraphobia with moderate panic attacks: Status: Chronic Problem details: The patient is currently adequately treated. (4) Bipolar disorder, current episode mixed, moderate: Status: Chronic Problem details: Follow-up with Lisa Ramos at [facility] [place]. Reason for Visit Reason for Visit: poss od hydrocodone Hospital Course Hospital Course Patient is rapidly stabilizing. She has established treatment relationship at [facility] and is interested in referral to counseling. I recommend cognitive behavioral therapy. Today is our second encounter. She is bright-spirited and happy. She believes that, no matter what happens, she will survive. Discharge Summary This is a patient who was profoundly distressed by her 's statement of divorce, and impulsively took an overdose and now has restabilized. She does not want hurt herself or anyone else. Especially because of the legacy this with imposed upon her children. Involuntary Hold Information 96 Hour Hold: 96 Hour Involuntary Admission: Yes Discharge Data Data Completed and Pending: Completed Studies During Hospitalization Category Date Time Status XR KUB portable 7 4018 Stat Exams 07/28/19 22:58 Completed Labs from last 24 hours 07/30/19 07/29/19 06:16 18:09 POC Glucose 96 137 Vitals: Last Vital Signs Temp 98.9 F 07/30/19 06:00 Pulse 94 07/30/19 06:00 Resp 20 H 07/30/19 06:00 BP 134/89 07/30/19 06:00 Pulse Ox 96 07/30/19 06:00 Discharge Plan Discharge Patient Disposition: Home, Self-Care Condition: Stable Prescriptions: New trazodone 50 mg Tablet 50 mg PO BEDTIME PRN (Reason: Sleep) 30 Days Qty: 30 RF: 1 Continued metformin 500 mg Tablet 2,000 mg PO DAILY RF: 0 Klonopin 0.5 mg Tablet 0.5 mg PO BID PRN (Reason: Anxiety) RF: 0 levothyroxine 25 mcg Tablet 25 mcg PO DAILY RF: 0 levothyroxine 200 mcg Tablet 200 mcg PO DAILY RF: 0 Lamictal 200 mg tablet 400 mg PO QAM RF: 0 Pristiq 50 mg tablet extended release 24 hr 50 mg PO QAM RF: 0 Discontinued melatonin 3 mg capsule 6 mg PO BEDTIME PRN (Reason: sleep) RF: 0 Vraylar 3 mg capsule 3 mg PO QAM RF: 0 Discharge Orders: Discharge Order (Routine); Ordered 07/30/19 Ordered By: Hitesh Proctor Referrals: Jarrod Noriega MD [Physician] - 08/10/19 1:30 pm Aisha Dennison MD [Primary Care Provider] - Lisa Ramos PMHNP [Staff Physician] - 09/06/19 1:30 pm Discharge Diet: Usual diet Discharge Activity: Resume usual activity Discharge Attestations NPU Time Spent in Discharge Care*: greater than 30 min Coding Level of Care Code Acute [employer] for [employer]g Fwd Diagnoses Suicidal ideation R45.851 Overdose T50.901A Panic disorder without agoraphobia with moderate panic attacks F41.0 Bipolar disorder, current episode mixed, moderate F31.62
[2019-07-30 12:09] VITALS: BP 134/89; PULSE 94; RESP 20; TEMP 37.2; O2SAT 96
== END 2019-07-30 12:23 | disposition home or self-care (01) | DRG 918 ==
LOC: ER 23:12 → NP 23:30
PROVIDERS: Emergency Medicine; Family Medicine; Admitting Provider Psychiatry & Neurology Psychiatry; Family Provider Family Medicine; PCP Family Medicine; Visit Provider Psychiatry & Neurology Psychiatry
DX: T40.2X2A Poisoning by other opioids, intentional self-harm, initial encounter (principal); F31.62 Bipolar disorder, current episode mixed, moderate; Y92.009 Unspecified place in unspecified non-institutional (private) residence as the place of occurrence of the external cause; F41.0 Panic disorder [episodic paroxysmal anxiety]; Z91.5 Personal history of self-harm
CPT/HCPCS: 12345; 36415; 36416; 36600; 74018; 80053; 80306; 80307; 81001; 81025; 82803; 82962; 83605; 84443; 85025; 93005; 99284

== ENCOUNTER → 2019-08-05 07:34 | Outpatient (BNVA) | payer MEDICARE, SELFPAY | PROVIDERS: Family Provider Family Medicine; PCP Family Medicine; Visit Provider Nurse Practitioner Psychiatric/Mental Health | DX: F31.62 Bipolar disorder, current episode mixed, moderate (principal); F41.0 Panic disorder [episodic paroxysmal anxiety]; F70 Mild intellectual disabilities | CPT/HCPCS: 99214 ==

== ENCOUNTER → 2019-09-09 07:50 | Outpatient (BNVA) | payer MEDICARE, SELFPAY | PROVIDERS: Family Provider Family Medicine; PCP Family Medicine; Visit Provider Nurse Practitioner Psychiatric/Mental Health | DX: F41.0 Panic disorder [episodic paroxysmal anxiety] (principal); F33.2 Major depressive disorder, recurrent severe without psychotic features; F70 Mild intellectual disabilities; F41.1 Generalized anxiety disorder | CPT/HCPCS: 99214 ==

== ENCOUNTER → 2019-10-26 08:09 | Outpatient (BNVA) | payer MEDICARE, SELFPAY | PROVIDERS: Family Provider Family Medicine; PCP Family Medicine; Visit Provider Nurse Practitioner Psychiatric/Mental Health | DX: F33.2 Major depressive disorder, recurrent severe without psychotic features (principal); F70 Mild intellectual disabilities; F41.1 Generalized anxiety disorder; F41.0 Panic disorder [episodic paroxysmal anxiety] | CPT/HCPCS: 99214 ==

== ENCOUNTER 2019-10-26 16:54 | Emergency (ER) | payer MEDICARE, SELFPAY ==
[2019-10-26 17:16] VITALS: BP 124/76; PULSE 90; RESP 16; TEMP 37.3; O2SAT 100; BMI 43.4
--- NOTE | 2019-10-26 18:07 | ED_ITS ---
HPI - Nausea/Vomiting/Diarrhea General: Chief complaint: Nausea/Vomiting/Diarrhea Stated complaint: Vomiting 2x days Time Seen by Provider: 10/26/19 18:07 History of Present Illness: HPI Narrative: Patient is a 34-year-old female comes to the ED with headache and abdominal pain. Patient says that approximately 2 weeks ago she was diagnosed with a right ear infection with perforated eardrum. She was put on oral antibiotic and antibiotic eardrops. Patient took last dose of oral antibiotic last night and just started taking the antibiotic eardrops in the last couple days. She complains of having a 10 out of 10 headache on the right side of her head. Her right ear still hurts and the external part of her ear is tender to the touch. In the past couple days patient has had increased nausea and some abdominal pain. Abdominal pain is in the epigastric region and she is recently been put on pantoprazole 40 mg due to acid reflux. She has not been able to eat or keep anything down for the past 2 days. She reports having some low-grade fevers but denies any bladder or bowel symptoms. Patient reports the emesis she has had today is described as yellow bile. Associated nausea: Yes Associated symtoms: Reports headache(s) and nausea; Denies change in vision, chest pain, dysuria, fatigue or palpitations Review of Systems Const: Reports: fever(s); Denies: chills or fatigue Eyes: Denies: change in vision or eye discomfort ENMT: Reports: ear or mastoid pain (right and left ears. Right ear is most pa inful.); Denies: throat pain, odynophagia, nasal discharge or nasal congestion Card: Denies: chest pain, palpitations, edema, swelling of feet/ankles, dyspnea on exertion or orthopnea Resp: Denies: dyspnea, productive cough or non-productive cough GI: Reports: abdominal pain (epigastric), nausea and vomiting; Denies: diarrhea, constipation or hematochezia : Denies: flank pain, dysuria or hematuria Musc: Denies: neck pain, back pain or extremity swelling Skin/Breast: Denies: rash or new lesions Neuro: Reports: headache(s); Denies: numbness in extremities or weakness in extremities [facility] ED PFSH: Medical History Generalized anxiety disorder Hypothyroidism 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 Denies family history of Anesthesia complication Bleeding disorder Social History Smoking and tobacco status: never smoked Alcohol intake: current Alcohol intake frequency: holidays/special occasions only Substance/Drug Use: never Female Reproductive History: Date of last menstrual period: 10/24/19 Physical Exam Const: COMMON NORMALS: no acute distress, patient oriented x3 and alert GENERAL APPEARANCE: cooperative and comfortable HENMT: COMMON NORMALS: normocephalic HEAD & SCALP: normocephalic EXTERNAL EAR: Yes external ear abnormal Abnormal external ear present: auricular tenderness (Right ear) TYMPANIC MEMBRANE: TM abnormal TM laterality: bilateral (Right ear has more erythema than left.) erythematous, with fluid behind the TM and with loss of landmarks MOUTH: moist mucous membranes abnormal (mild) THROAT: posterior oropharynx normal and uvula midline Eye: COMMON NORMALS: Equal, round and reactive pupils present PUPIL: Yes Equal, round and reactive pupils present Neck/C-Spine: COMMON NORMALS: supple GENERAL: Yes normal visual inspection Resp: COMMON NORMALS: normal respiratory effort, No retractions, No use of accessory muscles and clear to auscultation bilaterally AUSCULTATION: clear to auscultation bilaterally Cardio: COMMON NORMALS: regular rate, regular rhythm, S1 normal heart sound present, S2 normal heart sound present, No gallops present (Cardio), No clicks present (Cardio), No murmurs present (Cardio) and Peripheral pulses 2+ throughout RATE: regular rate RHYTHM: regular rhythm HEART SOUNDS: S1 normal heart sound present and S2 normal heart sound present PERIPHERAL PULSES: Peripheral pulses 2+ throughout GI: COMMON NORMALS: Normal to inspection, nondistended, normoactive bowel sounds present, Soft to palpation and no masses PALPATION: Yes Soft to palpation and Yes Tenderness to palpation present (GI) (mild epigastric) Details: other (mild epigastric) : COMMON NORMALS: Yes no CVA tenderness BLADDER/KIDNEY EXAM: Yes no CVA tenderness Back/Pelvis: COMMON NORMALS: no CVA tenderness Extremity: COMMON NORMALS: normal to inspection and no pedal edema Neuro: COMMON NORMALS: patient oriented x3 and moves all extremities SENSORIUM/ORIENTATION: Yes alert Skin: COMMON NORMALS: no rashes or lesions noted GENERAL SKIN EXAM: no rashes or lesions noted and dry skin Course Reevaluation(s): Reevaluation #1: After patient received headache medications I went in and talked with patient to reevaluate symptoms and to tell her about lab and CT findings. Patient reports that her headache is much improved and she has not had any episodes of emesis while here in the ED. She currently rates the headache a 5 out of 10. Patient feels ready to go home and rest. Time: 19:35 Vital Signs: Vital signs: Vital Signs Temperature 99.1 F 10/26/19 17:16 Pulse Rate 82 10/26/19 21:10 Respiratory Rate 18 10/26/19 21:10 Blood Pressure 102/59 10/26/19 21:10 Pulse Oximetry 94 10/26/19 21:10 MDM - Nausea/Vomiting/Diarrhea MDM Narrative: Medical decision making narrative: Patient is a 34-year-old female comes to the ED with right ear pain and headache. Patient also has onset of nausea and vomiting over the past 2 days as well. Patient has a history of GERD. Patient was diagnosed 2 weeks ago with acute otitis media of the right ear with a perforated eardrum. Patient took full course of oral antibiotics but just started using antibiotic eardrops. Physical exam shows erythema of the TM in both right and left ears. CBC, CMP were unremarkable. hCG negative. Lipase 16 and H. pylori was negative. Patient was diagnosed with acute otitis media both right and left ears and urine. CT of head showed no acute findings. Patient was given IV fluids, Zofran, ketorolac, Benadryl and Decadron while here in the ED. Patient symptoms of nausea and headache greatly improved. Patient was sent home with a prescription of cefdinir and told to continue using ear drops as previously prescribed. Patient was also told to take the antinausea med she has at home and to continue taking her pantoprazole. Follow-up with PCP in 7 to 10 days for reevaluation. Patient understood and agreed with plan. Return to ED precautions given. Lab Data: Attestation: I reviewed the patient's lab results. Labs: Lab Results 10/26/19 10/26/19 10/26/19 Range/Units 19:00 19:00 19:00 WBC 9.9 (4.0-10.0) 10^3/ uL RBC 4.48 (4.1-5.3) 10^6/u L Hgb 12.8 (11.5-15.3) g/dL Hct 40.1 (37.0-47.0) % MCV 89.5 (81-99) fL MCH 28.6 (28.0-34.0) pg MCHC 31.9 (30.0-36.0) g/dL RDW 12.3 (12.1-15.1) % Plt Count 368 (130-400) 10^3/c mm MPV 10.5 H (7.4-10.4) fL Neut % (Auto) 66.5 % Lymph % (Auto) 25.2 % [facility] % (Auto) 5.2 % Eos % (Auto) 1.6 % Baso % (Auto) 0.9 % Neut # (Auto) 6.58 (1.8-7.7) 10^3/u L Lymph # (Auto) 2.5 (0.8-4.8) 10^3/u L [facility] # (Auto) 0.5 (0.2-0.9) 10^3/u L Eos # (Auto) 0.2 (0.0-0.8) 10^3/u L Baso # (Auto) 0.1 (0.0-0.1) 10^3/u L Nucleated RBC % (a uto) 0 % Nucleated RBCs # 0.0 /100WBC Sodium 138 (136-145) mmol/L Potassium 3.8 (3.5-5.1) mmol/L Chloride 103 (98-107) mmol/L Carbon Dioxide 22 (22-29) mmol/L Anion Gap 16.8 (5-19) BUN 8 (6-20) mg/dL Creatinine 0.8 (0.5-0.9) mg/dL GFR Calculation 83.1 L (90-130) mL/min Glucose 96 (65-115) mg/dL Calculated Osmolal ity 282 L (285-295) mOsm/k g Calcium 9.5 (8.5-10.5) mg/dL Total Bilirubin 0.7 (0.15-1.2) mg/dL AST 23 (0-32) U/L ALT 27 (0-33) U/L Alkaline Phosphata se 86 (35-105) IU/L Total Protein 8.2 (6.6-8.7) g/dL Albumin 4.6 (3.5-5.2) g/dL Globulin 3.6 (1.3-4.6) g/dL Lipase 16 (13-60) U/L HCG, Qual Negative (Negative) H. pylori IgG Anti body (Negative) 10/26/19 Range/Units 19:00 WBC (4.0-10.0) 10^3/ uL RBC (4.1-5.3) 10^6/u L Hgb (11.5-15.3) g/dL Hct (37.0-47.0) % MCV (81-99) fL MCH (28.0-34.0) pg MCHC (30.0-36.0) g/dL RDW (12.1-15.1) % Plt Count (130-400) 10^3/c mm MPV (7.4-10.4) fL Neut % (Auto) % Lymph % (Auto) % [facility] % (Auto) % Eos % (Auto) % Baso % (Auto) % Neut # (Auto) (1.8-7.7) 10^3/u L Lymph # (Auto) (0.8-4.8) 10^3/u L [facility] # (Auto) (0.2-0.9) 10^3/u L Eos # (Auto) (0.0-0.8) 10^3/u L Baso # (Auto) (0.0-0.1) 10^3/u L Nucleated RBC % (a uto) % Nucleated RBCs # /100WBC Sodium (136-145) mmol/L Potassium (3.5-5.1) mmol/L Chloride (98-107) mmol/L Carbon Dioxide (22-29) mmol/L Anion Gap (5-19) BUN (6-20) mg/dL Creatinine (0.5-0.9) mg/dL GFR Calculation (90-130) mL/min Glucose (65-115) mg/dL Calculated Osmolal ity (285-295) mOsm/k g Calcium (8.5-10.5) mg/dL Total Bilirubin (0.15-1.2) mg/dL AST (0-32) U/L ALT (0-33) U/L Alkaline Phosphata se (35-105) IU/L Total Protein (6.6-8.7) g/dL Albumin (3.5-5.2) g/dL Globulin (1.3-4.6) g/dL Lipase (13-60) U/L HCG, Qual (Negative) H. pylori IgG Anti body Negative (Negative) Imaging Data^: CT Head: Attestation: I personally reviewed and interpreted this imaging study as follows: Radiologist's impression: [place] [address] CT Scan Report Signed Patient: Colleen Moreno Unit #: [id number] : 1985 Age/Sex: 34 / F ADM Date: 10/26/19 Loc: ER Room/Bed: Attending Dr: Ordering Provider/Ordering MD: Charles Juares Date of Service: 10/26/19 Procedure(s): CT head wo con* [id number] Accession Number(s): [id number] Report Number: [id number] PROCEDURE INFORMATION: Exam: CT Head Without Contrast Exam date and time: 10/26/2019 6:36 PM Age: 34 years old Clinical indication: Pain; Dizziness and other: N/v; Headache TECHNIQUE: Imaging protocol: Computed tomography of the head without contrast. Radiation optimization: All CT scans at this facility use at least one of these dose optimization techniques: automated exposure control; mA and/or kV adjustment per patient size (includes targeted exams where dose is matched to clinical indication); or iterative reconstruction. COMPARISON: No relevant prior studies available. RADIATION DOSE METRICS: Total DLP (mGy-cm): 760.13 FINDINGS: Brain: Normal. No hemorrhage. Unremarkable white matter. No mass effect. Ventricles: Normal. No ventriculomegaly. Bones/joints: Unremarkable. No acute fracture. Sinuses: Visualized sinuses are unremarkable. No fluid levels. Mastoid air cells: Visualized mastoid air cells are well aerated. Soft tissues: Unremarkable. CT/CT head wo con* [id number] IMPRESSION: No acute intracranial abnormality. Radiation Dose CTDIVOL = (mGy): DLP = 760.13 (mGy-cm) Dictated By: Jerri Mullins Signed By: Jerri Mullins Signed Date/Time: 10/26/191904 DD/ 03 Discharge Plan Discharge Patient Disposition: Home Clinical Impression: Otitis media of both ears Qualifiers: Otitis media type: serous Chronicity: acute Recurrence: recurrent Qualified Code(s): H65.06 - Acute serous otitis media, recurrent, bilateral GERD (gastroesophageal reflux disease) Qualifiers: Esophagitis presence: esophagitis presence not specified Qualified Code(s): K21.9 - Gastro-esophageal reflux disease without esophagitis Headache Qualifiers: Headache type: unspecified Headache chronicity pattern: acute headache Intractability: not intractable Qualified Code(s): R51 - Headache Condition: Stable Prescriptions: New cefdinir 300 mg capsule 300 mg PO BID 10 Days Qty: 20 RF: 0 No Action Lamictal 200 mg tablet 400 mg PO QAM Qty: 180 RF: 2 Klonopin 0.5 mg tablet 0.5 mg PO BID Qty: 60 RF: 3 venlafaxine [Effexor XR] 150 mg capsule,extended release 24hr 150 mg PO QAM Qty: 90 RF: 1 trazodone 50 mg tablet 25 mg PO BEDTIME PRN (Reason: Sleep) 30 Days Qty: 15 RF: 1 pantoprazole [Protonix] 40 mg tablet,delayed release (DR/EC) 40 mg PO DAILY Qty: 30 RF: 0 metformin 500 mg Tablet 2,000 mg PO DAILY RF: 0 levothyroxine 200 mcg Tablet 200 mcg PO DAILY RF: 0 ciprofloxacin HCl 0.3 % drops See Rx Instructions .ROUTE .COMPLEX RF: 0 promethazine 25 mg tablet 25 mg PO Q8H PRN (Reason: N/V) RF: 0 Discharge Orders: Discharge Order (Routine); Ordered 10/26/19 Ordered By: Charles Juares Referrals: Jenna Dean FNP [Primary Care Provider] - Discharge Diet: Advance as tolerated Discharge Activity: Increase activity as tolerated Patient Instructions: Otitis Media (ED), Gastroesophageal Reflux Disease (ED) Activity Restrictions/Additional Instructions: Follow-up with medical provider as directed in 7-10 days. Take Cefdinir antibiotic as prescribed. Continue using antibiotic eardrops and remember to continue using eardrops 3 days after symptoms resolved. Continue taking your pantoprazole for reflux and take your previously prescribed antinausea med as needed. Take either ibuprofen or Tylenol for any pain or fevers. Start with a clear liquid diet and slowly advance as tolerated. Return to the ER or your medical provider if condition worsens. Please read and understand discharge instructions. If any questions, please ask. Discharge Date/Time: 10/26/19 21:12 Coding Level of Care Code ED Supervisor Continuous [employer] for [place] Fwd Exam Comprehensive
--- NOTE | 2019-10-26 18:33 | CTR_ITS ---
PROCEDURE INFORMATION: Exam: CT Head Without Contrast Exam date and time: 10/26/2019 6:36 PM Age: 34 years old Clinical indication: Pain; Dizziness and other: N/v; Headache TECHNIQUE: Imaging protocol: Computed tomography of the head without contrast. Radiation optimization: All CT scans at this facility use at least one of these dose optimization techniques: automated exposure control; mA and/or kV adjustment per patient size (includes targeted exams where dose is matched to clinical indication); or iterative reconstruction. COMPARISON: No relevant prior studies available. RADIATION DOSE METRICS: Total DLP (mGy-cm): 760.13 FINDINGS: Brain: Normal. No hemorrhage. Unremarkable white matter. No mass effect. Ventricles: Normal. No ventriculomegaly. Bones/joints: Unremarkable. No acute fracture. Sinuses: Visualized sinuses are unremarkable. No fluid levels. Mastoid air cells: Visualized mastoid air cells are well aerated. Soft tissues: Unremarkable. CT/CT head wo con* [id number] IMPRESSION: No acute intracranial abnormality. Radiation Dose CTDIVOL = (mGy): DLP = 760.13 (mGy-cm)
[2019-10-26 19:10] LABS: Basophils # 0.1 10^3/uL (0.0-0.1); Basophils % 0.9 %; Eosinophils # 0.2 10^3/uL (0.0-0.8); Eosinophils % 1.6 %; Hematocrit 40.1 % (37.0-47.0); Hemoglobin 12.8 g/dL (11.5-15.3); Lymphocytes # 2.5 10^3/uL (0.8-4.8); Lymphocytes % 25.2 %; Mean Corpuscular HGB Conc 31.9 g/dL (30.0-36.0); Mean Corpuscular Hemoglobin 28.6 pg (28.0-34.0); Mean Corpuscular Volume 89.5 fL (81-99); Mean Platelet Volume 10.5 fL (7.4-10.4); Monocytes # 0.5 10^3/uL (0.2-0.9); Monocytes % 5.2 %; Neutrophils # 6.58 10^3/uL (1.8-7.7); Neutrophils % 66.5 %; Nucleated Red Blood Cells % 0 %; Platelet Count 368 10^3/cmm (130-400); Red Blood Count 4.48 10^6/uL (4.1-5.3); Red Cell Distribution Width 12.3 % (12.1-15.1); White Blood Count 9.9 10^3/uL (4.0-10.0)
[2019-10-26] MEDS: dexamethasone 10 mg/mL INJ IVP (19:13)
[2019-10-26] MEDS: ondansetron 2 mg/ML SDV 2 mL 4 MG IVP (19:14)
[2019-10-26] MEDS: ketorolac 30 mg/mL INJ IVP (19:15)
[2019-10-26] MEDS: diphenhydrAMINE 50 mg/mL SDV 1mL 25 MG IVP (19:16)
[2019-10-26] MEDS: sodium chloride 0.9% 1,000 ML 999 ML IV (19:19)
[2019-10-26 19:34] LABS: Alanine Aminotransferase 27 U/L (0-33); Albumin Level 4.6 g/dL (3.5-5.2); Alkaline Phosphatase 86 IU/L (35-105); Anion Gap 16.8 (5-19); Aspartate Amino Transferase 23 U/L (0-32); Blood Urea Nitrogen 8 mg/dL (6-20); Calcium 9.5 mg/dL (8.5-10.5); Carbon Dioxide 22 mmol/L (22-29); Chloride 103 mmol/L (98-107); Globulin 3.6 g/dL (1.3-4.6); Glomerular Filtration Rate 83.1 mL/min (90-130); Glucose 96 mg/dL (65-115); Lipase 16 U/L (13-60); Osmolality Calculated 282 mOsm/kg (285-295); Potassium 3.8 mmol/L (3.5-5.1); Sodium 138 mmol/L (136-145); Total Bilirubin 0.7 mg/dL (0.15-1.2); Total Protein 8.2 g/dL (6.6-8.7)
[2019-10-26 19:38] LABS: HCG, Serum Qual Negative (Negative)
[2019-10-26 19:47] LABS: H. Pylori IgG Antibody Negative (Negative)
[2019-10-26] MEDS: cefdinir 300 MG CAPSULE PO (19:59)
[2019-10-26 21:10] VITALS: BP 102/59; PULSE 82; RESP 18; O2SAT 94
== END 2019-10-26 21:12 | disposition home or self-care (01) ==
PROVIDERS: Emergency Provider Physician Assistant; PCP Nurse Practitioner Family
DX: H65.06 Acute serous otitis media, recurrent, bilateral (principal); K21.9 Gastro-esophageal reflux disease without esophagitis; R51 Headache
CPT/HCPCS: 12345; 36415; 70450; 80053; 83690; 84703; 85025; 86677; 87040; 96361; 96374; 96375; 99282; 99283; J1100; J1200; J1885; J2405; J7030

== ENCOUNTER → 2019-11-05 08:55 | Outpatient (BNVA) | payer MEDICARE, SELFPAY | PROVIDERS: PCP Nurse Practitioner Family; Visit Provider Internal Medicine | DX: Z11.59 Encounter for screening for other viral diseases (principal) | CPT/HCPCS: 87635 ==

== ENCOUNTER 2019-11-08 06:23 | Day surgery (SDC) | payer MEDICARE, SELFPAY ==
[2019-11-04 11:06] VITALS: BMI 44.6
[2019-11-08 06:47] VITALS: BP 123/72; PULSE 88; RESP 18; TEMP 36.6; O2SAT 99; BMI 43.4
--- NOTE | 2019-11-08 06:55 | W.PM.OPSUD ---
Surgery/Procedure H&P Update DATE OF PROCEDURE: November 08, 2019 DATE H&P PERFORMED: 10/26/19 H&P UPDATE INFORMATION: I have reviewed H&P completed within last 30 days, I have examined patient prior to procedure and No changes to prior documentation PREOP DIAGNOSIS: Pain PLANNED PROCEDURE: Operation Date: 11/08/19 07:30 Proposed Procedures p EGD 94680 R10.12 K21.9(Not Applicable) - Javi yT MD
[2019-11-08] MEDS: sodium chloride 0.9% 1,000 ML 30 ML IV (06:57)
[2019-11-08 07:01] LABS: OR HCG Qualitative Urine Negative (Negative)
[2019-11-08 07:03] LABS: Glucose Point of Care 97 mg/dL (70-110)
--- NOTE | 2019-11-08 07:03 | ANES.PREANE2 ---
Pre-Anesthetic Assessment Pre-Anesthetic Assessment: Height/Weight: Height 1.55 m Weight 104.326 kg Temp Pulse Resp BP Pulse Ox 97.8 F 88 18 123/72 99 11/08/19 06:47 11/08/19 06:47 11/08/19 06:47 11/08/19 06:47 11/08/19 06:47 Preop Diagnosis: Pain Proposed Procedure: Operation Date: 11/08/19 07:30 Proposed Procedures p EGD 87218 R10.12 K21.9(Not Applicable) - Javi Ty MD Familial anesthetic complications: woke up crying Was Beta Ashley taken within 24 hours: N/A Last intake: Intake Last Liquid Date 11/07/19 Last Liquid Time 19:00 Last Solid Date 11/07/19 Last Solid Time 19:00 Social: Social History: No alcohol and No tobacco Exam: Pre-Anes Outpt Exam: alert, oriented x 3, clear to auscultation bilaterally and regular rate & rhythm Airway: Cervical ROM: WNL MP: 2 Dentition: Full GI: GI: GERD Metabolic: Metabolic: Morbid obesity and Thyroid Comments: metforming for PCOS Neuropsych: Neuropsych: None reported Anesthetic Plan: ASA status: 2 Anesthesia: MAC Risk of > 500 ml blood loss (7ml/kg in children): No Meds/Allergies Current Medications: Current Medications Generic Name Dose Route Start Last Admin Trade Name Freq PRN Reason Stop Dose Admin Sodium Chloride 1,000 mls @ 30 ml s/hr 11/08/19 06:30 11/08/19 06:57 Sodium Chloride 0.9% IV 11/09/19 06:29 30 mls/hr .Q24H TREVON Administration PFSH Anesthesia PFSH: Medical History (Updated 11/03/19 @ 00:01 by ) Generalized anxiety disorder Hypothyroidism 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 Denies family history of Anesthesia complication Bleeding disorder Social History Smoking and tobacco status: never smoked Alcohol intake: current Alcohol intake frequency: holidays/special occasions only Female Reproductive History: Date of last menstrual period: 10/24/19 Data Anesthesia Other Labs: Laboratory Results - last 48 hr 11/08/19 06:59 Urine HCG, Qual Negative Cardiac Studies: No Data to Display
[2019-11-08 08:05] VITALS: BP 117/68; PULSE 91; RESP 18; TEMP 36.2; O2SAT 96
== END 2019-11-08 08:29 | disposition home or self-care (01) ==
PROVIDERS: Anesthesiology; PCP Nurse Practitioner Family; Visit Provider Surgery
PROC: 0DJ08ZZ Inspection of Upper Intestinal Tract, Via Natural or Artificial Opening Endoscopic (ICD-10-PCS; CPT 43235; principal; 2019-11-08 07:30)
DX: K29.50 Unspecified chronic gastritis without bleeding (principal); K21.9 Gastro-esophageal reflux disease without esophagitis; E03.9 Hypothyroidism, unspecified; E66.01 Morbid (severe) obesity due to excess calories; Z68.41 Body mass index [BMI] 40.0-44.9, adult
CPT/HCPCS: 12345; 36416; 43239; 81025; 82962; 84703; 88305; J2704; J7030

== ENCOUNTER → 2019-11-30 07:54 | Outpatient (BNVA) | payer MEDICARE, SELFPAY | PROVIDERS: Family Provider Family Medicine; PCP Family Medicine; Visit Provider Nurse Practitioner Psychiatric/Mental Health | DX: F41.0 Panic disorder [episodic paroxysmal anxiety] (principal); F33.2 Major depressive disorder, recurrent severe without psychotic features; F70 Mild intellectual disabilities; F41.1 Generalized anxiety disorder | CPT/HCPCS: 99214 ==

== ENCOUNTER → 2020-01-26 11:40 | Outpatient (BNVA) | payer MEDICARE, SELFPAY | PROVIDERS: Family Provider Family Medicine; PCP Nurse Practitioner Family; Referring Provider Nurse Practitioner Family; Visit Provider Specialist | DX: M25.531 Pain in right wrist (principal); M25.532 Pain in left wrist; G56.02 Carpal tunnel syndrome, left upper limb | CPT/HCPCS: 95910 ==

== ENCOUNTER → 2020-02-16 10:42 | Outpatient (BNVA) | payer MEDICARE, SELFPAY | PROVIDERS: Family Provider Family Medicine; PCP Nurse Practitioner Family; Visit Provider Specialist | DX: G56.02 Carpal tunnel syndrome, left upper limb (principal); G56.01 Carpal tunnel syndrome, right upper limb; Z46.89 Encounter for fitting and adjustment of other specified devices | CPT/HCPCS: 73110; L3908 ==

== ENCOUNTER 2020-02-16 13:10 | Outpatient (CLI) | payer MEDICARE, SELFPAY | END 2020-02-16 13:11 | disposition home or self-care (01) | LOC: SPT 13:11 | PROVIDERS: Family Provider Family Medicine; PCP Nurse Practitioner Family; Visit Provider Specialist | DX: Z46.89 Encounter for fitting and adjustment of other specified devices (principal); G56.02 Carpal tunnel syndrome, left upper limb | CPT/HCPCS: L3908 ==

== ENCOUNTER → 2020-02-27 14:36 | Outpatient (BNVA) | payer MEDICARE, SELFPAY | PROVIDERS: Family Provider Family Medicine; PCP Nurse Practitioner Family; Visit Provider Specialist | DX: G56.02 Carpal tunnel syndrome, left upper limb (principal) | CPT/HCPCS: 87635 ==

== ENCOUNTER 2020-03-03 10:18 | Day surgery (SDC) | payer MEDICARE, SELFPAY ==
[2020-03-02 12:33] VITALS: BMI 43.0
--- NOTE | 2020-03-03 10:53 | W.PM.OPSUD ---
Surgery/Procedure H&P Update DATE OF PROCEDURE: March 03, 2020 DATE H&P PERFORMED: 02/16/20 H&P UPDATE INFORMATION: I have reviewed H&P completed within last 30 days, I have examined patient prior to procedure, No changes to prior documentation and H&P is in [facility] EMR on date indicated PREOP DIAGNOSIS: Left carpal tunnel syndrome PLANNED PROCEDURE: Operation Date: 03/03/20 11:50 Proposed Procedures p Left Carpal Tunnel Release 04776 G56.00(Left) - Ping Velásquez MD Related Problem List Diagnoses (1) Carpal tunnel syndrome of left wrist:
[2020-03-03 11:01] VITALS: PULSE 97; RESP 18; TEMP 36.8
[2020-03-03 11:13] LABS: OR HCG Qualitative Urine Negative (Negative)
[2020-03-03] MEDS: CELEcoxib 200 mg Capsule 400 MG PO (11:36)
[2020-03-03] MEDS: sodium chloride 0.9% 1,000 ML 30 ML IV (11:38)
[2020-03-03] MEDS: vancomycin 1,000 MG in sodium chloride 0.9% 250 ML 250 MG IV (11:44)
--- NOTE | 2020-03-03 11:53 | P.ANESASSM_ITS ---
Pre-Anesthetic Assessment Pre-Anesthetic Assessment: Height/Weight: Height 1.55 m Weight 103.419 kg Temp Pulse Resp 98.3 F 97 18 03/03/20 11:01 03/03/20 11:01 03/03/20 11:01 Preop Diagnosis: Left carpal tunnel syndrome Proposed Procedure: Operation Date: 03/03/20 11:50 Proposed Procedures p Left Carpal Tunnel Release 65165 G56.00(Left) - Ping Velásquez MD Familial anesthetic complications: none Was Beta Ashley taken within 24 hours: N/A Last intake: Intake Last Liquid Date 03/02/20 Last Liquid Time 19:00 Last Solid Date 03/02/20 Last Solid Time 19:00 Social: Social History: No alcohol and No tobacco Exam: Pre-Anes Outpt Exam: alert, oriented x 3, clear to auscultation bilaterally and regular rate & rhythm Airway: Cervical ROM: WNL MP: 3 Dentition: Full GI: GI: GERD Metabolic: Metabolic: Morbid obesity and Thyroid Comments: pcos Anesthetic Plan: ASA status: 2 Anesthesia: MAC and Regional (specify below) (krystin block) Risk of > 500 ml blood loss (7ml/kg in children): No Other Pertinent Information: Patient had vancomcyin dripping and became red, flushed, itchy, and hot. Giving benadryl 50 mg and will try to recommence vancomycin at slower rate and monitor for signs/symptoms of anaphylaxis Meds/Allergies Current Medications: Current Medications Generic Name Dose Route Start Last Admin Trade Name Freq PRN Reason Stop Dose Admin Vancomycin HCl 1,0 00 mg/ 250 mls @ 250 mls /hr 03/03/20 10:57 03/03/20 11:44 Sodium Chloride IV 03/03/20 11:56 250 mls/hr ANALYTIC MANAGER ONE Administration Protocol Sodium Chloride 1,000 mls @ 30 ml s/hr 03/03/20 11:00 03/03/20 11:38 Sodium Chloride 0.9% IV 03/04/20 10:59 30 mls/hr .Q24H TREVON Administration PFSH Anesthesia PFSH: Medical History Bile reflux gastritis Generalized anxiety disorder Hypothyroidism 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 Denies family history of Anesthesia complication Bleeding disorder Social History Smoking and tobacco status: never smoked Alcohol intake: current Alcohol intake frequency: holidays/special occasions only Female Reproductive History: Date of last menstrual period: 02/21/20 Data Anesthesia Other Labs: Laboratory Results - last 48 hr 03/03/20 11:11 Urine HCG, Qual Negative Cardiac Studies: No Data to Display
[2020-03-03] MEDS: diphenhydrAMINE 50 mg/mL SDV 1mL 25 MG IVP (11:56)
--- NOTE | 2020-03-03 13:05 | ANE.PACU2 ---
Inpatient post-anesthesia follow up: Airway intact: Yes Vital signs: Temperature 98.3 F Pulse Rate 97 Respiratory Rate 18 Blood Pressure Pulse Oximetry Oxygen Delivery Me thod Room Air Oxygen Flow Rate Fraction of Inspir ed Oxygen Hydration adequate: Yes Nausea and vomiting: No Pain level: 1 Mental status: Baseline
[2020-03-03 13:06] VITALS: BP 163/72; PULSE 90; RESP 16; TEMP 36.3; O2SAT 100
--- NOTE | 2020-03-03 13:07 | P.OP_ITS ---
Operative Report Date of procedure: March 03, 2020 Pre-op Diagnosis: Left carpal tunnel syndrome Post-op diagnosis: same Procedure Done: Left carpal tunnel release Pathology: none sent Surgeon: Ping Velásquez Human Services Care Specialist: myla Ta OR technicians Anesthesia: MAC (With [place] block) Estimated blood loss (mL): 3 Tourniquet time (min): 29 Tourniquet time: At 250 mmHg IV fluids (mL): 500 Urine output (mL): 0 Urine output: No Peña Complications: None Findings: Significant compression across the carpal canal with discoloration of the median nerve Condition: stable Disposition: same day (Then discharge home with family) Brief History: This 34-year-old woman presented with complaints of severe carpal tunnel symptoms. She was unresponsive to conservative measures and wished to proceed with surgical intervention. Risks and complications were discussed with her. The surgical procedure was scheduled and questions were answered. Consents were signed. Procedure: The patient was brought to the operating theater. The patient had a [place] block with MAC. The tourniquet was elevated to 250 mmHg for a total tourniquet time of 29 minutes. The patient was also given vancomycin 1 g preoperatively. The arm was then prepped and draped with DuraPrep in usual fashion with the arm draped free. A surgical pause was performed. At the time, the surgical pause, we confirmed the site and side of surgery. We also confirmed the patient's identity, appropriate and timely administration of preoperative antibiotics and preoperative surgical markings. An incision was then made along the thenar crease. The incision crossed the wrist joint in a curvilinear fashion. Dissection continued through skin and soft tissues using a scalpel. The palmaris longus was identified along with the transverse carpal ligament. Each of these was released carefully to avoid injury to the median nerve. We were able to dissect gently into the carpal canal which was noted to be quite tight with significant compression across the median nerve. The nerve was visualized and was an hourglass shape. The canal was subsequently palpated to assure there was no bony encroachment upon the canal. The canal was then palpated distally and proximally to assure that my small finger was passed easily without impingement. Finding this to be so, attention was directed to closure. The wound was irrigated with ropivacaine plain. It was then closed with 3-0 nylon in an interrupted mattress fashion. Sterile dressing was then placed consisting of Xeroform gauze, fluffed fluffs, sterile soft roll, a volar splint, and an Lane wrap. The tourniquet was released after 29 minutes. There were no complications. There were no specimens. The procedure was well tolerated. Plan is the patient will be discharged home. Associated Problem List Diagnoses (1) Carpal tunnel syndrome of left wrist:
[2020-03-03 13:20] VITALS: BP 124/64; PULSE 82; RESP 22; O2SAT 100
== END 2020-03-03 13:36 | disposition home or self-care (01) ==
PROVIDERS: Anesthesiology; PCP Nurse Practitioner Family; Visit Provider Specialist
PROC: (CPT 64721; principal; 2020-03-03 11:40)
DX: G56.02 Carpal tunnel syndrome, left upper limb (principal); E66.01 Morbid (severe) obesity due to excess calories; Z68.41 Body mass index [BMI] 40.0-44.9, adult; E28.2 Polycystic ovarian syndrome; F41.9 Anxiety disorder, unspecified; E03.9 Hypothyroidism, unspecified
CPT/HCPCS: 64721; 12345; 81025; 84703; 96365; J0131; J1200; J2704; J3010; J3370; J3490; J7030; J7050

== ENCOUNTER → 2020-03-08 07:38 | Outpatient (BNVA) | payer MEDICARE, SELFPAY | PROVIDERS: PCP Nurse Practitioner Family; Visit Provider Nurse Practitioner Psychiatric/Mental Health | DX: F33.2 Major depressive disorder, recurrent severe without psychotic features (principal); F41.0 Panic disorder [episodic paroxysmal anxiety]; F70 Mild intellectual disabilities; F41.1 Generalized anxiety disorder | CPT/HCPCS: 99213 ==

== ENCOUNTER → 2020-04-17 09:22 | Outpatient (BNVA) | payer MEDICARE, SELFPAY | PROVIDERS: PCP Nurse Practitioner Family; Visit Provider Specialist | DX: M25.512 Pain in left shoulder (principal); M25.532 Pain in left wrist | CPT/HCPCS: 73030; 73110 ==

== ENCOUNTER → 2020-04-24 07:49 | Outpatient (BNVA) | payer MEDICARE, SELFPAY | PROVIDERS: PCP Nurse Practitioner Family; Visit Provider Nurse Practitioner Psychiatric/Mental Health | DX: F33.2 Major depressive disorder, recurrent severe without psychotic features (principal); F41.0 Panic disorder [episodic paroxysmal anxiety]; F70 Mild intellectual disabilities; F41.1 Generalized anxiety disorder | CPT/HCPCS: 99214 ==

== ENCOUNTER 2020-04-25 08:20 | Outpatient (CLI) | payer MEDICARE, SELFPAY ==
--- NOTE | 2020-04-25 08:45 | MR_ITS ---
WS: [id number] MRI LEFT SHOULDER HISTORY: M25.512 - Pain in left shoulder COMPARISON: Shoulder radiograph 04/17/2020 TECHNIQUE: Multiplanar sequences of the shoulder joint are submitted. Mild AC joint hypertrophy. There is increased soft tissue surrounding the distal clavicle with thicke jalen of the capsule surrounding the AC joint and small amount of adjacent fluid. No definite fracture identified. No os acromion. Biceps tendon is in normal position. No rotator cuff tears are identified. There is n o muscle atrophy or edema. There is a small lobulated cystic mass along the posterior glenoid labral dislocation. Lobulated cyst measures 12 x 6 mm. No labral tear is identified but these cystic changes are often associated with labral tears. There is fraying along the anterior and posterior labrum. No marrow edema or fracture. No joint effusion. MR/MR shoulder LT wo con* [id number] IMPRESSION: 1. Mild AC joint sprain. 2. Small lobulated cyst associated with the posterior labrum. These cysts are often associated with labral tears. No labral tear is identified by MRI. Spinog lenoid notch cyst versus paralabral cyst. 3. Possible anterior superior labral tear. There is some fraying involving the anterior and posterior labrum but cannot confirm tear.
== END 2020-04-25 08:21 | disposition home or self-care (01) ==
LOC: RADSHAW 08:26
PROVIDERS: PCP Nurse Practitioner Family; Visit Provider Specialist
DX: S43.52XA Sprain of left acromioclavicular joint, initial encounter (principal); X58.XXXA Exposure to other specified factors, initial encounter
CPT/HCPCS: 73221

== ENCOUNTER 2020-05-03 08:28 | Outpatient (RCR) | payer MEDICARE, SELFPAY | END 2020-05-24 23:59 | disposition home or self-care (01) | LOC: SPT 08:28 | PROVIDERS: PCP Nurse Practitioner Family; Referring Provider Specialist; Visit Provider Specialist | DX: S46.912D Strain of unspecified muscle, fascia and tendon at shoulder and upper arm level, left arm, subsequent encounter (principal); X58.XXXD Exposure to other specified factors, subsequent encounter | CPT/HCPCS: 97110; 97161 ==

== ENCOUNTER 2020-05-25 06:00 | Outpatient (RCR) | payer MEDICARE, SELFPAY | END 2020-06-23 23:59 | disposition home or self-care (01) | LOC: SPT 06:00 | PROVIDERS: PCP Nurse Practitioner Family; Referring Provider Specialist; Visit Provider Specialist | DX: S46.812D Strain of other muscles, fascia and tendons at shoulder and upper arm level, left arm, subsequent encounter (principal); M25.512 Pain in left shoulder; X58.XXXD Exposure to other specified factors, subsequent encounter | CPT/HCPCS: 97110 ==

== ENCOUNTER 2020-05-29 13:27 | Emergency (ER) | payer MEDICARE, SELFPAY ==
[2020-05-29 13:56] VITALS: BP 119/84; PULSE 127; RESP 18; TEMP 39.4; O2SAT 98; BMI 41.5
--- NOTE | 2020-05-29 14:15 | ED_ITS ---
HPI - Fever General: Chief Complaint: Fever Stated Complaint: sore/swollen throat, was diagnosed with strep Time Seen by Provider: 05/29/20 14:08 Source: patient Mode of arrival: ambulatory Limitations: no limitations History of Present Illness: HPI Narrative: This patient presents to the emergency department with a complaint of sore throat. Patient states she was allergic to local urgent care and diagnosed with strep throat. Patient given an antibiotic of amoxicillin and Toradol. Patient states she has difficulty swallowing the tablet because of a sore throat. I did discuss at length with patient and offered Rocephin however according to medical records and patient patient is allergic to cephalosporins. We did discuss at length with options. Patient will be given the prescription for Amoxil in liquid form. Encourage p.o. fluids. Take medications as instructed. Tylenol Motrin as needed as needed for fever or pain. Salt water gargles 2-3 times daily. Follo w-up with PCP in 2 to 3 days. Exacerbating factors: nothing Relieving factors: nothing Associated symptoms: Deny abdominal pain, flank pain, chills, chest pain, dysuria, extremity pain, headache(s), nausea or vomiting Review of Systems General: Reports: 10 or more systems reviewed and unremarkable except in HPI and below Const: Denies: fever(s), chills, body aches or fatigue Eyes: Denies: change in vision or blurry vision ENMT: Reports: enlarged tonsils and odynophagia; Denies: throat pain, hoarseness or mouth pain Card: Denies: chest pain, palpitations, irregular heart rhythm, edema, swelling of feet/ankles or lightheadedness Resp: Denies: dyspnea, productive cough, non-productive cough, wheezing or pain on inspiration GI: Denies: abdominal pain, nausea or vomiting : Denies: flank pain, difficulty voiding, dysuria, urinary frequency, urinary urgency or urinary hesitancy Musc: Denies: neck pain, back pain, extremity pain, extremity swelling, joint pain, joint swelling, joint redness, joint warmth or limited range of motion Skin/Breast: Denies: rash, pruritus, erythema or skin tenderness Neuro: Denies: headache(s), numbness in extremities or weakness in extremities Psych: Denies: anxiety or depression PFSH ED PFSH: Medical History Bile reflux gastritis Generalized anxiety disorder Hypothyroidism 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 Denies family history of Anesthesia complication Bleeding disorder Social History Smoking and tobacco status: never smoked Alcohol intake: current Alcohol intake frequency: holidays/special occasions only Female Reproductive History: Date of last menstrual period: 05/22/20 Physical Exam Const: COMMON NORMALS: no acute distress, average body habitus, patient oriented x3, no limitations, healthy appearing, alert and well nourished HENMT: COMMON NORMALS: normocephalic, atraumatic, external ears normal, EAC's normal, TM's normal bilaterally, Normal external nose present and Normal nasal mucous membranes and turbinates present HEAD & SCALP: normocephalic and atraumatic NOSE: Normal external nose present and Normal nasal mucous membranes and turbinates present EXTERNAL EAR: Yes external ears normal EXTERNAL AUDITORY CANAL: EAC's normal TYMPANIC MEMBRANE: TM's normal bilaterally THROAT: abnormal tonsil (Enlarged bilaterally with exudate) Neck/C-Spine: COMMON NORMALS: full ROM, no lymphadenopathy, supple, no men ingeal signs, no JVD, Thyroid normal and No carotid bruits THYROID: Thyroid normal Chest: COMMONS NORMALS: normal inspection of the chest, normal palpation of entire chest wall, normal inspection of the breasts and normal palpation of the breasts Breast/axilla inspection: Yes normal inspection of the breasts BREAST/AXILLA PALPATION: Yes normal palpation of the breasts Resp: COMMON NORMALS: normal respiratory effort, No retractions, No use of accessory muscles, clear to auscultation bilaterally and percussion normal AUSCULTATION: clear to auscultation bilaterally PERCUSSION: percussion normal Cardio: COMMON NORMALS: no JVD, regular rate, regular rhythm, S1 normal heart sound present, S2 normal heart sound present, No gallops present (Cardio), No clicks present (Cardio), No murmurs present (Cardio), No rub (Cardio) and Peripheral pulses 2+ throughout RATE: regular rate RHYTHM: regular rhythm HEART SOUNDS: S1 normal heart sound present and S2 normal heart sound present PERIPHERAL PULSES: Peripheral pulses 2+ throughout GI: COMMON NORMALS: Normal to inspection, nondistended, normoactive bowel sounds present, Soft to palpation, non-tender, No hepatosplenomegaly present, no masses and no bruits PALPATION: Yes Soft to palpation and Yes No hepatosplenomegaly present : COMMON NORMALS: Yes no CVA tenderness, Yes normal external appearance, Yes normal appearance of the vagina, Yes normal appearance of the cervix, Yes normal bimanual exam, Yes No adnexal tenderness and Yes no masses BLADDER/KIDNEY EXAM: Yes no CVA tenderness BIMANUAL EXAM - VAGINA & UTERUS: Yes normal bimanual exam Back/Pelvis: COMMON NORMALS: no CVA tenderness, thoracic and lumbar spine normal to inspection, no thoracic nor lumbar tenderness, thoraco-lumbar ROM normal and straight leg raise negative bilaterally Extremity: COMMON NORMALS: normal to inspection, full ROM, capillary refill normal, no joint enlargement, no clubbing, cyanosis or edema, no calf tenderness and no pedal edema Neuro: COMMON NORMALS: patient oriented x3 SENSORIUM/ORIENTATION: Yes alert MENINGEAL SIGNS: Yes no meningeal signs Course ED course: Patient allergic to Rocephin. Did discuss at length with patient about options. Patient's have amoxicillin prescription will be changed to liquid form. Patient has tolerated amoxicillin before. Encourage p.o. fluids. Take medications as instructed. Tylenol Motrin as needed as needed for fever or pain. Salt water gargles 2-3 times daily. Follow-up with PCP in 2 to 3 days. This does not appear to be an acute emergency. Patient appears to be healthy and has no fever. Vital Signs: Vital signs: Vital Signs Temperature 103 F H 05/29/20 13:56 Pulse Rate 127 H 05/29/20 13:56 Respiratory Rate 18 05/29/20 13:56 Blood Pressure 119/84 05/29/20 13:56 Pulse Oximetry 98 05/29/20 13:56 Discharge Plan Discharge Patient Disposition: Home Clinical Impression: Pharyngitis Condition: Stable Prescriptions: New amoxicillin 400 mg/5 mL suspension for reconstitution 800 mg PO BID Qty: 200 RF: 0 No Action trazodone 50 mg tablet 50 mg PO DIRECTED PRN (Reason: insomnia) Qty: 14 RF: 1 Klonopin 0.5 mg tablet 0.5 mg PO .as directed Qty: 90 RF: 3 venlafaxine [Effexor XR] 150 mg capsule,extended release 24hr 150 mg PO QAM Qty: 90 RF: 2 Lamictal 200 mg tablet 400 mg PO QAM Qty: 180 RF: 2 (DME) COCK UP SPLINT See Rx Instructions .Route .MEDSUPPLY Qty: 1 RF: 0 pantoprazole [Protonix] 40 mg tablet,delayed release (DR/EC) 40 mg PO DAILY Qty: 30 RF: 2 metformin 500 mg Tablet 2,000 mg PO DAILY RF: 0 levothyroxine 200 mcg Tablet 200 mcg PO DAILY RF: 0 promethazine 25 mg tablet 25 mg PO Q8H PRN (Reason: N/V) RF: 0 cholestyramine (with sugar) [Questran] 4 gram powder 4 gm PO TID PRN (Reason: bile reflux gastritis) Qty: 378 RF: 0 Discharge Orders: Discharge ED (Routine); Ordered 05/29/20 Ordered By: Ras Chacko Referrals: Jenna Dean FNP [Primary Care Provider] - Discharge Diet: Advance as tolerated Discharge Activity: Resume usual activity Patient Instructions: Opioid Safety Activity Restrictions/Additional Instructions: Encourage p.o. fluids. Take medications as instructed. Tylenol Motrin as needed as needed for fever or pain. Salt water gargles 2-3 times daily. Follow-up with PCP in 2 to 3 days. Coding Level of Care Code ED Crossbow Maker for Milka Ramachandran
== END 2020-05-29 14:27 | disposition home or self-care (01) ==
PROVIDERS: Emergency Provider Emergency Medicine; PCP Nurse Practitioner Family
DX: J02.9 Acute pharyngitis, unspecified (principal)
CPT/HCPCS: 99282

== ENCOUNTER → 2020-05-30 08:05 | Outpatient (BNVA) | payer MEDICARE, SELFPAY | PROVIDERS: PCP Nurse Practitioner Family; Visit Provider Nurse Practitioner Psychiatric/Mental Health | DX: F33.2 Major depressive disorder, recurrent severe without psychotic features (principal); F41.0 Panic disorder [episodic paroxysmal anxiety]; F70 Mild intellectual disabilities; F41.1 Generalized anxiety disorder | CPT/HCPCS: 99214 ==

== ENCOUNTER → 2020-06-21 10:32 | Outpatient (BNVA) | payer MEDICARE, SELFPAY | PROVIDERS: PCP Nurse Practitioner Family; Visit Provider Obstetrics & Gynecology | DX: N93.9 Abnormal uterine and vaginal bleeding, unspecified (principal); E03.9 Hypothyroidism, unspecified; Z79.899 Other long term (current) drug therapy | CPT/HCPCS: 84443; 85025 ==

== ENCOUNTER 2020-06-24 06:00 | Outpatient (RCR) | payer MEDICARE, SELFPAY | END 2020-07-24 23:59 | disposition home or self-care (01) | LOC: SPT 06:00 | PROVIDERS: PCP Nurse Practitioner Family; Referring Provider Specialist; Visit Provider Specialist | DX: M25.512 Pain in left shoulder (principal) | CPT/HCPCS: 97110 ==

== ENCOUNTER → 2020-07-03 12:57 | Outpatient (BNVA) | payer MEDICARE, SELFPAY | PROVIDERS: PCP Nurse Practitioner Family; Visit Provider Obstetrics & Gynecology | DX: N94.6 Dysmenorrhea, unspecified (principal); N83.202 Unspecified ovarian cyst, left side | CPT/HCPCS: 76830 ==

== ENCOUNTER → 2020-08-17 07:19 | Outpatient (BNVA) | payer MEDICARE, SELFPAY | PROVIDERS: PCP Nurse Practitioner Family; Visit Provider Nurse Practitioner Psychiatric/Mental Health | DX: F33.2 Major depressive disorder, recurrent severe without psychotic features (principal); F41.0 Panic disorder [episodic paroxysmal anxiety]; F70 Mild intellectual disabilities; F41.1 Generalized anxiety disorder | CPT/HCPCS: 99214 ==

== ENCOUNTER 2020-10-23 18:08 | Emergency (ER) | payer MEDICARE, SELFPAY ==
[2020-10-23 18:17] VITALS: BP 145/91; PULSE 98; RESP 18; TEMP 36.8; O2SAT 99; BMI 42.5
--- NOTE | 2020-10-23 20:00 | USR_ITS ---
PROCEDURE INFORMATION: Exam: US Abdomen; Limited Exam date and time: 10/23/2020 8:00 PM Age: 35 years old Clinical indication: Abdominal pain; Acute; Additional info: Please do a postvoid TECHNIQUE: Imaging protocol: US abdomen. Real time ultrasound with image documentation. Limited exam focused on the region of clinical interest. Total images: 4 COMPARISON: US transvaginal [id number] 07/03/2020 12:58 PM FINDINGS: Bladder: Postvoid urinary bladder 112 cc. Urinary bladder without visible gross filling defect. No visible asymmetrical bladder wall thickening or increased trabeculation. US/US bladder [id number] IMPRESSION: Postvoid urinary bladder 112 cc.
--- NOTE | 2020-10-23 20:02 | XRR_ITS ---
PROCEDURE INFORMATION: Exam: XR Lumbosacral Spine Exam date and time: 10/23/2020 8:02 PM Age: 35 years old Clinical indication: Low back pain; Additional info: Rule out fracture TECHNIQUE: Imaging protocol: XR of the lumbosacral spine. Views: 2 or 3 views. COMPARISON: CR XR KUB portable [id number] 07/28/2019 11:24 PM FINDINGS: Bones/joints: Trace levocurvature of the lumbar spine is present. The normal lumbar lordosis is maintained, without listhesis. No fracture identified. Vertebral body heights are well maintained. Soft tissues: Unremarkable. Organs: An intrauterine device is in place. XR/XR lumbar spine 2-3V* [id number] IMPRESSION: No acute injury.
[2020-10-23] MEDS: ketorolac 30 mg/mL INJ IVP (20:24)
[2020-10-23] MEDS: morphine 4 mg/mL SDV 1 mL IVP (20:24)
[2020-10-23] MEDS: diphenhydrAMINE 50 mg/mL SDV 1mL (20:33)
[2020-10-23] MEDS: acetaminophen 500 mg Tablet 1000 MG PO (20:34)
--- NOTE | 2020-10-23 20:59 | MRR_ITS ---
PROCEDURE INFORMATION: Exam: MR Lumbar Spine Without Contrast. Exam date and time: 10/23/2020 8:59 PM Age: 35 years old Clinical indication: Low back pain; Additional info: Rule out cord compression TECHNIQUE: Imaging protocol: Multiplanar magnetic resonance images of the lumbar spine without contrast. Total images: 111 COMPARISON: CR XR lumbar spine 2-3V* [id number] 10/23/2020 8:53 PM FINDINGS: Vertebrae: No visible acute osseous abnormality. No visible spondylolysis or spondylolisthesis. Spinal cord: Normal signal. No cord compression. No visible evidence to suggest the presence of arachnoiditis. Discs/Spinal canal/Neural foramina: No visible herniated nucleus pulposis or significant posterior annular disc bulge that would result in central canal stenosis or neural foraminal stenosis. Intervertebral disc space heights preserved. Normal intervertebral disc signals. Nerve roots appear to exit freely at all levels within the field of view without compromise. Soft tissues: Unremarkable. Motion artifact. MR/MR lumbar spine wo con* [id number] IMPRESSION: No visible HNP or significant posterior annular disc bulge that would result in central canal stenosis or neural foraminal stenosis.
[2020-10-23] MEDS: LORazepam 2 mg/mL INJ 1 mL IVP (21:19)
--- NOTE | 2020-10-23 21:56 | W.ED.GENADLT ---
HPI - General Adult General: Chief complaint: Back Pain/Injury Stated complaint: Injury Back Pain, hip pain Time Seen by Provider: 10/23/20 19:37 History of Present Illness: HPI narrative: Patient is a 35-year-old female with no known past medical history presents emergency room with complaints of lumbar back pain. Patient was lifting the wheelchair of her significant other when she felt a pop earlier today around noon today. Distally, patient reports significant pain, difficulty with urination and bowel relief. Patient also reports weakness and numbing sensation shooting down the legs bilaterally. Patient denies any other traumas any fall, any other injuries at this time. History IV drug use, diabetes, history of cancer, or other medical conditions. Onset:10 hrs ago Duration:10 hrs Location:home Severity:moderate Review of Systems Narrative: Constitutional: No fever, no chills. HEENT: No vision changes CV: No chest pain, no palpitations PULM: no cough, no dyspnea. GI: No abdominal pain, no N/V/D. : No dysuria MSKEL: +lumbar back pain SKIN: No new rashes, no lesions. NEURO: No headache, no focal weakness. HEME: No visible bruises PSYCH: Normal mood PFSH ED PFSH: Medical History Hypothyroidism Diagnosed at the age of 13 and is controlled by her primary care provider and medication. Does not have an talent scout. Insulin resistance Diagnosed with insulin resistance at the age of 17 or 18 and states that she takes Metformin for this. Major depressive disorder, recurrent severe without psychotic features Diagnosed with bipolar disorder at the age of 13 and is on medication managed by [facility]. She sees a therapist once a week and the nurse practitioner at [facility] every 4 to 6 weeks. No pertinent past medical history Denies diabetes, asthma, hypertension, seizures, DVT/PE PCP: NEEL Evangelista Surgical History H/O esophagogastroduodenoscopy (11/08/19) History of x 2 2014 and . History of carpal tunnel surgery Left hand in 2010 and right wrist in February [address] Almonte. History of cholecystectomy Laparoscopic procedure in 2012 Status post tubal ligation 2016 at time of second performed by Dr. Becker at [facility] Family History Grandmother Breast cancer maternal, diagnosed in her late 70s Heart disease maternal Hypertension maternal Grandfather Diabetes paternal Heart disease maternal and paternal Brother Heart disease Mother Hypertension Denies family history of Colon cancer Ovarian cancer Hyperlipidemia Uterine cancer Thyroid condition Stroke Social History Smoking and tobacco status: never smoked Alcohol intake: current Alcohol intake frequency: holidays/special occasions only Female Reproductive History: Date of last menstrual period: 05/22/20 Physical Exam Narrative: EXAM NARRATIVE: Head: Atraumatic Eyes: PERRL, conjunctiva without injection ENT: Mucous membrane moist NECK: Supple, ROM intact LUNGS: LCTAB, no crackles/rhonchi CV: RRR ABDOMEN: Soft, nontender in all quadrants EXTREMITY: Normal ROM, 4/5 strength in lower extremity, sensation intact in the lower extremities, SKIN: No rash or erythema NEURO: Awake and alert, no focal motor deficits PSYCH: Normal mood and affect BACK: +Paraspinal lumbar area tenderness to palpation, +midline L4-L5 tenderness to palpation Course Vital Signs: Vital signs: Vital Signs Temperature 98.3 F 10/23/20 18:17 Pulse Rate 102 H 10/23/20 23:09 Respiratory Rate 16 10/23/20 23:09 Blood Pressure 134/76 10/23/20 23:09 Pulse Oximetry 100 10/23/20 23:09 MDM - General Adult MDM Narrative: Medical decision making narrative: 35-year-old female presents emergency with lumbar area back pain. Patient reports difficulty improving her pain. Reports numbness in the legs. Initially on physical exam, patient had 4 out of 5 strength in the lower extremities. I suspect that this is pain related. However given bladder and bowel symptoms, decision was made to order MRI to rule out spinal cord injury. MRI is negative for any acute findings. Patient received multiple lidocaine with Kenalog injection in her perilumbar lumbar area with significant improvement in pain. Patient has been able to perform moving with 5 out of 5 strength in the lower extremity. No longer complains sensation change. Patient has been ordered urinate without difficulty. Postvoid residual volume of 115. No suspicion for spinal cord injury. At the present time, I do not suspect any other issues. Please refer to the procedure note for intradermal lidocine injection. Disposition: Discharge. Patient given follow up with orthopedics for further evaluation of back pain. Patient is given return precaution for any signs of infection from the injection, fever chills, inability to move the legs, or any new or concerning complaints. Patient is given follow-up with orthopedics and physical therapy. Patient is aware that our behavioral health case manager will call her for these appointments. Intradermal lidocaine + kenalog injection procedure: The patient?s lumbar back was addressed. A time out was undertaken to determine that this was the correct patient and the correct procedure for this patient. Risks of injections including infection, hematoma, nerve injury, paralysis, no other complication were discussed extensively with patient who agrees with plan to proceed. Alternative of medical treatment only and benefits OF IMMEDIATE RELIEF OF PAIN were also discussed. She agrees to proceed with the procedure. Patient is placed supine lying on her L side. Copious chloroprep was applied to the affected area of tenderness. The affected areas were prepped and cleansed in the usual sterile fashion. With sterile gloves, local anesthesia with 1% lidocaine w/ epinephirne was mixed kenalog 40mg in a 9ml:1ml ratio. An 25-gauge needle was inserted intradermally into the areas of tenderness. A total of 8 cc of these mixed solution were injected sterily into these area. The needle was then removed after. The patient tolerated this procedure well and there were no complications. Imaging Data^: Other Imaging: Radiologist's impression: [address] [id number] Resonance ReportSigned Patient: Gladis Moreno #: [id number]: 1985Acct#:[id number]/Sex: 35 / FADM Date: 10/23/20Loc: ERRoom/Bed:Attending Dr: Ordering Provider/Ordering MD: Fuentes Bond MD Date of Service: 10/23/20 Procedure(s): MR lumbar spine wo con* [id number] Accession Number(s): [id number] Report Number: [id number] PROCEDURE INFORMATION: Exam: MR Lumbar Spine Without Contrast. Exam date and time: 10/23/2020 8:59 PM Age: 35 years old Clinical indication: Low back pain; Additional info: Rule out cord compression TECHNIQUE: Imaging protocol: Multiplanar magnetic resonance images of the lumbar spine without contrast. Total images: 111 COMPARISON: CR XR lumbar spine 2-3V* [id number] 10/23/2020 8:53 PM FINDINGS: Vertebrae: No visible acute osseous abnormality. No visible spondylolysis or spondylolisthesis. Spinal cord: Normal signal. No cord compression. No visible evidence to suggest the presence of arachnoiditis. Discs/Spinal canal/Neural foramina: No visible herniated nucleus pulposis or significant posterior annular disc bulge that would result in central canal stenosis or neural foraminal stenosis. Intervertebral disc space heights preserved. Normal intervertebral disc signals. Nerve roots appear to exit freely at all levels within the field of view without compromise. Soft tissues: Unremarkable. Motion artifact. MR/MR lumbar spine wo con* [id number] IMPRESSION: No visible HNP or significant posterior annular disc bulge that would result in central canal stenosis or neural foraminal stenosis. Dictated By:Thea Lofton By:Thea Lofton Date/Time:10/23/202229DD/ 27 Discharge Plan Discharge Patient Disposition: Home Clinical Impression: Back pain Condition: Stable Prescriptions: New Biofreeze (menthol) 4 % gel 1 applic topical DAILY PRN (Reason: pain) 10 Days Qty: 89 RF: 0 orphenadrine citrate 100 mg tablet extended release 100 mg PO BID PRN (Reason: pain) 10 Days Qty: 20 RF: 0 acetaminophen 500 mg capsule 500 mg PO Q6H PRN (Reason: pain) 6 Days Qty: 24 RF: 0 No Action ferrous sulfate 325 mg (65 mg iron) tablet 325 mg PO DAILY RF: 0 clonazepam [Klonopin] 1 mg tablet 1 mg PO BID Qty: 60 RF: 3 metformin 500 mg Tablet 2,000 mg PO DAILY RF: 0 levothyroxine 200 mcg tablet 175 mcg PO DAILY RF: 0 promethazine 25 mg tablet 25 mg PO Q8H PRN (Reason: N/V) RF: 0 Lamictal 200 mg tablet 400 mg PO DAILY RF: 0 Effexor XR 150 mg capsule,extended release 24hr 150 mg PO DAILY RF: 0 Discharge Orders: Discharge ED (Routine); Ordered 10/23/20 Ordered By: Fuentes Bond Referrals: Jenna Dean FNP [Primary Care Provider] - Discharge Diet: Advance as tolerated Discharge Activity: Resume usual activity Patient Instructions: Back Pain (ED) Activity Restrictions/Additional Instructions: Please follow-up with orthopedic doctors and physical therapy for further evaluation of your pain. Come back to the emergency room you have any other questions Coding Level of Care Code ED Electric Dolly Operator for Milka Ramachandran
[2020-10-23 23:09] VITALS: BP 134/76; PULSE 102; RESP 16; O2SAT 100
--- NOTE | 2020-10-24 09:30 | DCPLANNER ---
[employer] had message to schedule a follow up appointment for patient with ortho and physical therapy. [employer] called the ortho clinic, spoke with Darlyn, gave clinic patients information. [employer] was told that patients information would be printed and reviewed. Clinic will call patient with appointment information. [employer] was not given an order for physical therapy. When director case management referred patient to ortho, director case management told the ortho clinic that the ER physician wanted patient to follow up with physical therapy as well. So when patient was seen by the ortho physician and the physician thought patient needed physical therapy, that they could refer patient to physical therapy.
--- NOTE | 2020-10-25 07:55 | DCPLANNER ---
Patient has a follow up appointment scheduled for Saturday, October 31, [address] at 2:[address] Oliver. Clinic will call patient with appointment information.
--- NOTE | 2020-11-10 13:43 | DCPLANNER ---
Patient had a follow up appointment with ortho - patient did attend appointment.
== END 2020-10-23 23:11 | disposition home or self-care (01) ==
PROVIDERS: Emergency Provider Emergency Medicine; PCP Nurse Practitioner Family
DX: M54.9 Dorsalgia, unspecified (principal); E03.9 Hypothyroidism, unspecified; E88.81 Metabolic syndrome and other insulin resistance
CPT/HCPCS: 72100; 72148; 76857; 96374; 96375; 99284; J1200; J1885; J2060; J2270

== ENCOUNTER → 2020-11-06 09:32 | Outpatient (BNVA) | payer MEDICARE, SELFPAY | PROVIDERS: PCP Nurse Practitioner Family; Referring Provider Orthopaedic Surgery; Visit Provider Anesthesiology Pain Medicine | DX: M48.062 Spinal stenosis, lumbar region with neurogenic claudication (principal); M79.604 Pain in right leg; M79.605 Pain in left leg | CPT/HCPCS: 99205 ==

== ENCOUNTER 2020-12-20 08:25 | Outpatient (RCR) | payer MEDICARE, SELFPAY | END 2020-12-24 23:59 | disposition home or self-care (01) | LOC: SPT 08:25 | PROVIDERS: PCP Nurse Practitioner Family; Visit Provider Nurse Practitioner Family | DX: G89.29 Other chronic pain (principal); M54.16 Radiculopathy, lumbar region | CPT/HCPCS: 97162 ==

== ENCOUNTER 2021-10-19 16:41 | Emergency (ER) | payer MEDICARE, MEDICAID, SELFPAY ==
[2021-10-19 16:55] VITALS: BP 143/84; PULSE 83; RESP 16; TEMP 37; O2SAT 98; BMI 47.2
[2021-10-19 17:03] VITALS: BP 142/79; PULSE 74; O2SAT 96
--- NOTE | 2021-10-19 17:04 | XRR_ITS ---
PROCEDURE INFORMATION: Exam: XR Chest Exam date and time: 10/19/2021 5:58 PM Age: 36 years old Clinical indication: Angina; Additional info: Chest pain TECHNIQUE: Imaging protocol: Radiologic exam of the chest. Views: 1 view. COMPARISON: MR shoulder LT wo con* [id number] 04/25/2020 9:02 AM FINDINGS: Lungs: No consolidation. Pleural spaces: Unremarkable. No pleural effusion. No pneumothorax. Heart/Mediastinum: No cardiomegaly. Bones/joints: No acute findings. XR/XR chest 1V portable [id number] IMPRESSION: No acute findings.
--- NOTE | 2021-10-19 17:59 | ED_ITS ---
HPI - Chest Pain General: Chief Complaint: Chest Pain Stated Complaint: Chest pain Time Seen by Provider: 10/19/21 17:48 History of Present Illness: 36-year-old female comes in today with complaints of left anterior chest wall tenderness. Patient reports about 2 days ago she started having some mild discomfort in her left anterior chest wall. Patient did feel some pops in that area and since then has had increased discomfort. Patient appears alert and oriented. Patient appears in no acute distress. Respirations are even. Patient appears nontoxic. Patient appears in mild to moderate pain. Associated symptoms: Reports nausea; Deny dyspnea Review of Systems General: Reports: 10 or more systems reviewed and unremarkable except in HPI and below Card: Reports: chest pain Resp: Denies: dyspnea GI: Reports: nausea PFSH ED PFSH: Medical History (Updated 10/19/21 @ 18:13 by NEEL Ward) Hypothyroidism Diagnosed at the age of 13 and is controlled by her primary care provider and medication. Does not have an novelty chain maker. Insulin resistance Diagnosed with insulin resistance at the age of 17 or 18 and states that she takes Metformin for this. Major depressive disorder, recurrent severe without psychotic features Diagnosed with bipolar disorder at the age of 13 and is on medication managed by [facility]. She sees a therapist once a week and the nurse practitioner at [facility] every 4 to 6 weeks. No pertinent past medical history Denies diabetes, asthma, hypertension, seizures, DVT/PE PCP: NEEL Evangelista [facility] Surgical History H/O esophagogastroduodenoscopy (11/08/19) History of x 2 2014 and . History of carpal tunnel surgery Left hand in 2010 and right wrist in February [address] Almonte. History of cholecystectomy Laparoscopic procedure in 2012 Status post tubal ligation 2016 at time of second performed by Dr. Becker at [facility] [place] Family History Grandmother Breast cancer maternal, diagnosed in her late 70s Heart disease maternal Hypertension maternal Grandfather Diabetes paternal Heart disease maternal and paternal Brother Heart disease Mother Hypertension Denies family history of Colon cancer Ovarian cancer Hyperlipidemia Uterine cancer Thyroid condition Stroke Social History (Reviewed 11/06/20 @ 09:51 by JEANETTE Ramirez Smoking and tobacco status: never smoked Alcohol intake: current Alcohol intake frequency: holidays/special occasions only Female Reproductive History: Date of last menstrual period: 05/22/20 Physical Exam Const: COMMON NORMALS: alert HENMT: COMMON NORMALS: normocephalic HEAD & SCALP: normocephalic Neck/C-Spine: COMMON NORMALS: full ROM Chest: CHEST: Yes tenderness (Left lower anterior ribs) Resp: COMMON NORMALS: normal respiratory effort and clear to auscultation bilaterally AUSCULTATION: clear to auscultation bilaterally Cardio: COMMON NORMALS: regular rate, regular rhythm and No murmurs present (Cardio) RATE: regular rate RHYTHM: regular rhythm GI: COMMON NORMALS: Soft to palpation and non-tender PALPATION: Yes Soft to palpation : COMMON NORMALS: Yes no CVA tenderness BLADDER/KIDNEY EXAM: Yes no CVA tenderness Back/Pelvis: COMMON NORMALS: no CVA tenderness Extremity: COMMON NORMALS: normal to inspection Neuro: SENSORIUM/ORIENTATION: Yes alert Skin: COMMON NORMALS: turgor normal GENERAL SKIN EXAM: turgor normal Course Vital Signs: Vital signs: Vital Signs Temperature 98.6 F 10/19/21 16:55 Pulse Rate 83 10/19/21 16:55 Respiratory Rate 16 10/19/21 16:55 Blood Pressure 143/84 10/19/21 16:55 Pulse Oximetry 98 10/19/21 16:55 Oxygen Delivery Me thod 10/19/21 16:55 MDM - Chest Pain Medical Decision Making Patient comes in with left lower anterior chest wall tenderness. On exam abdomen soft nontender. Lungs are clear to auscultation. Patient does have increased pain with movement and deep inspiration. Vital signs were normal. Differential diagnosis includes but not limited to pneumonia, costochondritis, GERD, muscle strain, ACS. EKG was normal. Chest x-ray was unremarkable. Urinalysis was normal. Patient has reproducible pain with palpation of the left anterior chest wall. Feel the patient probably has costochondritis. Patient was given 30 mg of Toradol IM. Patient was educated for the treatment and further evaluation and care. Patient reported understanding and agreed to plan. Lab Data : 10/19/21 17:43 10/19/21 17:43 Radiology Impressions Chest X-Ray 10/19/21 17:04 IMPRESSION: No acute findings. Laboratory Results WBC 9.8 10^3/uL (4.0-10.0) 10/19/21 17:43 RBC 4.81 10^6/uL (4.1-5.3) 10/19/21 17:43 Hgb 13.6 g/dL (11.5-15.3) 10/19/21 17:43 Hct 42.5 % (37.0-47.0) 10/19/21 17:43 MCV 88.4 fl (81-99) 10/19/21 17:43 MCH 28.3 pg (28.0-34.0) 10/19/21 17:43 MCHC 32.0 g/dL (30.0-36.0) 10/19/21 17:43 RDW 13.9 % (12.1-15.1) 10/19/21 17:43 Plt Count 358 10^3/cmm (130-400) 10/19/21 17:43 MPV 10.6 fL (7.4-10.4) H 10/19/21 17:43 Neut % (Auto) 56.7 % 10/19/21 17:43 Lymph % (Auto) 30.0 % 10/19/21 17:43 [place] % (Auto) 7.2 % 10/19/21 17:43 Eos % (Auto) 4.8 % 10/19/21 17:43 Baso % (Auto) 0.9 % 10/19/21 17:43 Neut # (Auto) 5.58 10^3/uL (1.8-7.7) 10/19/21 17:43 Lymph # (Auto) 3.0 10^3/uL (0.8-4.8) 10/19/21 17:43 [place] # (Auto) 0.7 10^3/uL (0.2-0.9) 10/19/21 17:43 Eos # (Auto) 0.5 10^3/uL (0.0-0.8) 10/19/21 17:43 Baso # (Auto) 0.1 10^3/uL (0.0-0.1) 10/19/21 17:43 Nucleated RBC % (auto) 0 % 10/19/21 17:43 Nucleated RBCs # 0.0 /100WBC 10/19/21 17:43 Discharge Plan Discharge Patient Disposition: Home Clinical Impression: Costalchondritis Condition: Stable Prescriptions: No Action ferrous sulfate 325 mg (65 mg iron) tablet 325 mg PO DAILY clonazepam [Klonopin] 1 mg tablet 1 mg PO BID Qty: 60 3RF Rx Instructions: Take one tablet twice per day celecoxib [Celebrex] 200 mg capsule 200 mg PO DAILY Qty: 30 0RF metformin 500 mg Tablet 2,000 mg PO DAILY levothyroxine 200 mcg tablet 175 mcg PO DAILY promethazine 25 mg tablet 25 mg PO Q8H PRN (Reason: N/V) Lamictal 200 mg tablet 400 mg PO DAILY Rx Instructions: Take two tablets every morning Effexor XR 150 mg capsule,extended release 24hr 150 mg PO DAILY Rx Instructions: Take one capsule every morning Discharge Orders: Discharge ED (Routine); Ordered 10/19/21 Ordered By: Dominick Franklin Referrals: Jenna Dean FNP [Primary Care Provider] - Discharge Diet: Usual diet Discharge Activity: Increase activity as tolerated Patient Instructions: Costochondritis (ED) Activity Restrictions/Additional Instructions: Activity as tolerated. Use acetaminophen along with ice or heat for pain relief. Make sure to drink plenty of water. This pain may persist up to 10 to 14 days. The best thing you can do is try to maintain normal activity is much as possible. Follow-up with primary care for further instruction. Return to ER for worsening symptoms such as fever greater than 100.4, increased shortness of breath, or new concerns. Coding Level of Care Code ED Sliver Lap Machine Tender for Milka Ramachandran
[2021-10-19 18:05] LABS: Add Urine Microscopic? NO; Charge for UA Resulting for Rev
[2021-10-19 18:09] LABS: Basophils # 0.1 10^3/uL (0.0-0.1); Basophils % 0.9 %; Eosinophils # 0.5 10^3/uL (0.0-0.8); Eosinophils % 4.8 %; Hematocrit 42.5 % (37.0-47.0); Hemoglobin 13.6 g/dL (11.5-15.3); Mean Corpuscular Hemoglobin 28.3 pg (28.0-34.0); Mean Corpuscular Volume 88.4 fl (81-99); Mean Platelet Volume 10.6 fL (7.4-10.4); Monocytes # 0.7 10^3/uL (0.2-0.9); Monocytes % 7.2 %; Neutrophils # 5.58 10^3/uL (1.8-7.7); Neutrophils % 56.7 %; Nucleated Red Blood Cells % 0 %; Platelet Count 358 10^3/cmm (130-400); Red Blood Count 4.81 10^6/uL (4.1-5.3); Red Cell Distribution Width 13.9 % (12.1-15.1); White Blood Count 9.8 10^3/uL (4.0-10.0)
[2021-10-19] MEDS: ketorolac 30 mg/mL INJ IM (18:20)
[2021-10-19 18:30] LABS: Bilirubin Urine Neg (Negative); Blood Urine Neg (Negative); Glucose Urine UA Norm (Normal); Ketones Urine Negative (Negative); Leukocyte Esterase Urine Negative (Negative); Nitrate Urine Negative (Negative); Protein Urine Neg (Negative); Specific Gravity, Urine 1.015 (1.005-1.030); Urine Appearance Clear (CLEAR); Urine Color Yellow (Yellow); Urobilinogen Urine Norm (Negative); pH Urine 6 (5-7)
[2021-10-19 18:35] LABS: Alanine Aminotransferase 55 U/L (0-33); Albumin Level 5.2 g/dL (3.5-5.2); Alkaline Phosphatase 78 U/L (35-105); Aspartate Amino Transferase 54 U/L (0-32); Blood Urea Nitrogen 8 mg/dL (6-20); Calcium 10.3 mg/dL (8.5-10.5); Carbon Dioxide 22 mmol/L (22-29); Chloride 100 mmol/L (98-107); Globulin 2.8 g/dL (1.3-4.6); Glomerular Filtration Rate 95.8 mL/min (90-130); Glucose 79 mg/dL (65-115); Lipase 31 U/L (13-60); Osmolality Calculated 281 mOsm/kg (285-295); Sodium 137 mmol/L (136-145); Total Bilirubin 0.5 mg/dL (0.15-1.2); Troponin(5th) Baseline 6 ng/L (0-10)
--- NOTE | 2021-10-19 23:04 | ECG_ITS ---
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 Measurements Intervals [place] Rate: 83 P: 45 NV: 144 QRS: 30 QRSD: 103 T: 29 QT: 365 QTc: 430 Interpretive Statements SINUS RHYTHM Compared to ECG 07/28/2019 16:58:50 Sinus tachycardia no longer present T-wave abnormality no longer present Electronically Signed On 10-20-2021 9:27:56 CDT by Toy Domínguez M.D. [id number]
== END 2021-10-19 18:30 | disposition home or self-care (01) ==
PROVIDERS: Emergency Medicine; Emergency Provider Nurse Practitioner Family; PCP Nurse Practitioner Family
DX: M94.0 Chondrocostal junction syndrome [Tietze] (principal); Z79.84 Long term (current) use of oral hypoglycemic drugs
CPT/HCPCS: 71045; 80053; 81003; 83690; 84484; 85025; 93005; 99285; J1885

== ENCOUNTER 2021-12-26 18:36 | Emergency (ER) | payer MEDICARE, MEDICAID, SELFPAY ==
[2021-12-26 19:05] VITALS: BMI 47.2
[2021-12-26 19:09] VITALS: BP 145/85; PULSE 109; RESP 16; TEMP 37.1; O2SAT 98
[2021-12-26 19:42] LABS: Basophils # 0.1 10^3/uL (0.0-0.1); Basophils % 0.8 %; Eosinophils # 0.5 10^3/uL (0.0-0.8); Eosinophils % 4.8 %; Hematocrit 38.5 % (37.0-47.0); Hemoglobin 12.2 g/dL (11.5-15.3); Lymphocytes # 2.3 10^3/uL (0.8-4.8); Lymphocytes % 23.1 %; Mean Corpuscular HGB Conc 31.7 g/dL (30.0-36.0); Mean Corpuscular Hemoglobin 29.1 pg (28.0-34.0); Mean Corpuscular Volume 91.9 fl (81-99); Mean Platelet Volume 10.4 fL (7.4-10.4); Monocytes # 0.9 10^3/uL (0.2-0.9); Neutrophils # 6.11 10^3/uL (1.8-7.7); Neutrophils % 61.3 %; Nucleated Red Blood Cells % 0 %; Platelet Count 277 10^3/cmm (130-400); Red Blood Count 4.19 10^6/uL (4.1-5.3); Red Cell Distribution Width 13.3 % (12.1-15.1)
[2021-12-26 19:44] LABS: Add Urine Microscopic? NO; Charge for UA Resulting for Rev
[2021-12-26 20:14] LABS: Urine Appearance Clear (CLEAR); Urine Color Colorless (Yellow); pH Urine 6 (5-7)
[2021-12-26 20:15] LABS: Bilirubin Urine Neg (Negative); Blood Urine Neg (Negative); Glucose Urine UA Norm (Normal); Ketones Urine Negative (Negative); Leukocyte Esterase Urine Negative (Negative); Nitrate Urine Negative (Negative); Protein Urine Neg (Negative); Specific Gravity, Urine 1.006 (1.005-1.030); Urobilinogen Urine Norm (Negative)
[2021-12-26 20:19] LABS: Alanine Aminotransferase 34 U/L (0-33); Albumin Level 4.8 g/dL (3.5-5.2); Alkaline Phosphatase 78 U/L (35-105); Anion Gap 16.7 (5-19); Aspartate Amino Transferase 25 U/L (0-32); Blood Urea Nitrogen 7 mg/dL (6-20); Calcium 9.7 mg/dL (8.5-10.5); Carbon Dioxide 22 mmol/L (22-29); Chloride 104 mmol/L (98-107); Globulin 3.2 g/dL (1.3-4.6); Glomerular Filtration Rate 95.8 mL/min (90-130); Glucose 122 mg/dL (65-115); Lipase 25 U/L (13-60); Osmolality Calculated 287 mOsm/kg (285-295); Potassium 3.7 mmol/L (3.5-5.1); Sodium 139 mmol/L (136-145); Total Bilirubin 0.4 mg/dL (0.15-1.2)
[2021-12-26 20:40] LABS: HCG, Serum Qual Negative (Negative)
--- NOTE | 2021-12-26 22:20 | CTR_ITS ---
PROCEDURE INFORMATION: Exam: CT Abdomen And Pelvis Without Contrast Exam date and time: 12/26/2021 10:36 PM Age: 36 years old Clinical indication: Abdominal pain; Localized; Prior surgery; Surgery type: Csection. Iud; Patient HX: C/O lower abd/pelvic pain; Additional info: Abd pain TECHNIQUE: Imaging protocol: Computed tomography of the abdomen and pelvis without contrast. Radiation optimization: All CT scans at this facility use at least one of these dose optimization techniques: automated exposure control; mA and/or kV adjustment per patient size (includes targeted exams where dose is matched to clinical indication); or iterative reconstruction. COMPARISON: [place] bladder [id number] 10/23/2020 8:37 PM RADIATION DOSE METRICS: Total DLP (mGy-cm): 1112.57 FINDINGS: Liver: Hepatic steatosis. Gallbladder and bile ducts: Cholecystectomy. Pancreas: Normal. No ductal dilation. Spleen: Normal. No splenomegaly. Adrenal glands: Normal. No mass. Kidneys and ureters: Normal. No hydronephrosis. Stomach and bowel: 3.6 cm area of edematous fat seen adjacent to the distal descending colon with some nonlocalized fluid suggestive of epiploic appendagitis, a mild localized colitis may also be a consideration, however, bowel wall thickening is not seen to support this. Constipation. Appendix: No evidence of appendicitis. Intraperitoneal space: Unremarkable. No free air. No significant fluid collection. Vasculature: Unremarkable. No abdominal aortic aneurysm. Lymph nodes: Unremarkable. No enlarged lymph nodes. Urinary bladder: Unremarkable as visualized. Reproductive: IUD seen outside of the uterus in the left deep pelvis. Bones/joints: Unremarkable. No acute fracture. Soft tissues: Unremarkable. CT/CT abdomen pelvis [facility] [id number] IMPRESSION: 1. 3.6 cm area of edematous fat seen adjacent to the distal descending colon with some nonlocalized fluid suggestive of epiploic appendagitis, a mild localized colitis may also be a consideration, however, bowel wall thickening is not seen to support this. 2. IUD seen outside of the uterus in the left deep pelvis. Negative for surrounding inflammatory changes. 3. Hepatic steatosis. 4. Cholecystectomy. 5. Constipation.
[2021-12-26 22:33] VITALS: RESP 18
[2021-12-26] MEDS: ondansetron 2 mg/ML SDV 2 mL 4 MG IM (22:33)
[2021-12-26] MEDS: HYDROmorphone 1 mg/mL INJ 1 mL 0.5 MG IM (22:33)
--- NOTE | 2021-12-26 22:36 | ED_ITS ---
HPI - Abdominal Pain General: Chief Complaint: Abdominal Pain Stated Complaint: ABD Pain Time Seen by Provider: 12/26/21 22:14 Source: patient Mode of arrival: ambulatory Limitations: no limitations History of Present Illness: 36-year-old female states she does have a history of PCOS she states she been having left lower quadrant abdominal pain over the last 2 days states been sharp in nature and much worse today states pain is currently 7 out of 10. She does not have an ovarian cyst in quite some time she denies any vomiting or diarrhea Associated Symptoms: Denies chills, dysuria and fever(s) Related Data: Date of Last Menstrual Period: 05/22/20 Review of Systems Const: Denies: fever(s), chills, body aches or change in appetite Eyes: Denies: blurry vision or eye discomfort ENMT: Denies: throat pain or dental pain Card: Denies: chest pain Resp: Denies: dyspnea GI: Reports: abdominal pain : Denies: dysuria Musc: Denies: neck pain or back pain Skin/Breast: Denies: rash Neuro: Denies: headache(s) Psych: Denies: depression Gab/Lymph: Denies: easy bruising All/Imm: Denies: urticaria PFSH ED PFSH: Medical History Hypothyroidism Diagnosed at the age of 13 and is controlled by her primary care provider and medication. Does not have an technical systems architect. Insulin resistance Diagnosed with insulin resistance at the age of 17 or 18 and states that she takes Metformin for this. Major depressive disorder, recurrent severe without psychotic features Diagnosed with bipolar disorder at the age of 13 and is on medication managed by [facility]. She sees a therapist once a week and the nurse practitioner at [facility] every 4 to 6 weeks. No pertinent past medical history Denies diabetes, asthma, hypertension, seizures, DVT/PE PCP: [facility] Surgical History H/O esophagogastroduodenoscopy (11/08/19) History of x 2 2014 and . History of carpal tunnel surgery Left hand in 2010 and right wrist in February [address] Almonte. History of cholecystectomy Laparoscopic procedure in 2012 Status post tubal ligation 2016 at time of second performed by Dr. Becker at [facility] [place] Family History Grandmother Breast cancer maternal, diagnosed in her late 70s Heart disease maternal Hypertension maternal Grandfather Diabetes paternal Heart disease maternal and paternal Brother Heart disease Mother Hypertension Denies family history of Colon cancer Ovarian cancer Hyperlipidemia Uterine cancer Thyroid condition Stroke Social History Smoking and tobacco status: never smoked Alcohol intake: current Alcohol intake frequency: holidays/special occasions only Female Reproductive History: Date of last menstrual period: 05/22/20 Physical Exam Const: COMMON NORMALS: no acute distress, patient oriented x3 and healthy appearing HENMT: COMMON NORMALS: normocephalic and atraumatic HEAD & SCALP: normocephalic and atraumatic Eye: COMMON NORMALS: Equal, round and reactive pupils present and EOMs intact bilaterally PUPIL: Yes Equal, round and reactive pupils present Neck/C-Spine: COMMON NORMALS: full ROM and supple Chest: COMMONS NORMALS: normal inspection of the chest and normal palpation of entire chest wall Resp: COMMON NORMALS: normal respiratory effort, No retractions, No use of accessory muscles and clear to auscultation bilaterally AUSCULTATION: clear to auscultation bilaterally Cardio: COMMON NORMALS: regular rate, regular rhythm and No murmurs present (Cardio) RATE: regular rate RHYTHM: regular rhythm GI: COMMON NORMALS: Normal to inspection, nondistended, normoactive bowel sounds present, Soft to palpation and no masses PALPATION: Yes Soft to palpation and Yes Tenderness to palpation present (GI) Details: LLQ Extremity: COMMON NORMALS: normal to inspection and full ROM Neuro: COMMON NORMALS: patient oriented x3, moves all extremities and no focal motor deficits Psych: COMMON NORMALS: mental status grossly normal, Normal thought process present and cooperative THOUGHT PROCESS: Normal thought process present Skin: COMMON NORMALS: no rashes or lesions noted and no wounds GENERAL SKIN EXAM: no rashes or lesions noted Course Vital Signs: Vital signs: Vital Signs Temperature 98.8 F 12/26/21 19:09 Pulse Rate 77 12/26/21 23:21 Respiratory Rate 15 12/26/21 23:21 Blood Pressure 132/78 12/26/21 23:21 Pulse Oximetry 97 12/26/21 23:21 Oxygen Delivery Me thod 12/26/21 23:21 MDM - Abdominal Pain Medical Decision Making Patient presents for abdominal pain likely from her epiploic appendagitis. Her pain here is much improved I did inform her she also has retained IUD she states that she has had the IUD for 6 years and has never been able to get removed she states even during a they attempted to find it they could not we will get her follow-up with OB again. She is return if worsening. Lab Data : 12/26/21 19:35 12/26/21 19:35 Labs/Radiology: Radiology Impressions Abdomen/Pelvis CT 12/26/21 22:20 IMPRESSION: 1. 3.6 cm area of edematous fat seen adjacent to the distal descending colon with some nonlocalized fluid suggestive of epiploic appendagitis, a mild localized colitis may also be a consideration, however, bowel wall thickening is not seen to support this. 2. IUD seen outside of the uterus in the left deep pelvis. Negative for surrounding inflammatory changes. 3. Hepatic steatosis. 4. Cholecystectomy. 5. Constipation. Laboratory Results WBC 10.0 10^3/uL (4.0-10.0) 12/26/21 19:35 RBC 4.19 10^6/uL (4.1-5.3) 12/26/21 19:35 Hgb 12.2 g/dL (11.5-15.3) 12/26/21 19:35 Hct 38.5 % (37.0-47.0) 12/26/21 19:35 MCV 91.9 fl (81-99) 12/26/21 19:35 MCH 29.1 pg (28.0-34.0) 12/26/21 19:35 MCHC 31.7 g/dL (30.0-36.0) 12/26/21 19:35 RDW 13.3 % (12.1-15.1) 12/26/21 19:35 Plt Count 277 10^3/cmm (130-400) 12/26/21 19:35 MPV 10.4 fL (7.4-10.4) 12/26/21 19:35 Neut % (Auto) 61.3 % 12/26/21 19:35 Lymph % (Auto) 23.1 % 12/26/21 19:35 [place] % (Auto) 9.0 % 12/26/21 19:35 Eos % (Auto) 4.8 % 12/26/21 19:35 Baso % (Auto) 0.8 % 12/26/21 19:35 Neut # (Auto) 6.11 10^3/uL (1.8-7.7) 12/26/21 19:35 Lymph # (Auto) 2.3 10^3/uL (0.8-4.8) 12/26/21 19:35 [place] # (Auto) 0.9 10^3/uL (0.2-0.9) 12/26/21 19:35 Eos # (Auto) 0.5 10^3/uL (0.0-0.8) 12/26/21 19:35 Baso # (Auto) 0.1 10^3/uL (0.0-0.1) 12/26/21 19:35 Nucleated RBC % (auto) 0 % 12/26/21 19:35 Nucleated RBCs # 0.0 /100WBC 12/26/21 19:35 Sodium 139 mmol/L (136-145) 12/26/21 19:35 Potassium 3.7 mmol/L (3.5-5.1) 12/26/21 19:35 Chloride 104 mmol/L (98-107) 12/26/21 19:35 Carbon Dioxide 22 mmol/L (22-29) 12/26/21 19:35 Anion Gap 16.7 (5-19) 12/26/21 19:35 BUN 7 mg/dL (6-20) 12/26/21 19:35 Creatinine 0.7 mg/dL (0.5-0.9) 12/26/21 19:35 GFR Calculation 95.8 mL/min (90-130) 12/26/21 19:35 Glucose 122 mg/dL (65-115) H 12/26/21 19:35 Calculated Osmolality 287 mOsm/kg (285-295) 12/26/21 19:35 Calcium 9.7 mg/dL (8.5-10.5) 12/26/21 19:35 Total Bilirubin 0.4 mg/dL (0.15-1.2) 12/26/21 19:35 AST 25 U/L (0-32) 12/26/21 19:35 ALT 34 U/L (0-33) H 12/26/21 19:35 Alkaline Phosphatase 78 U/L (35-105) 12/26/21 19:35 Total Protein 8.0 g/dL (6.6-8.7) 12/26/21 19:35 Albumin 4.8 g/dL (3.5-5.2) 12/26/21 19:35 Globulin 3.2 g/dL (1.3-4.6) 12/26/21 19:35 Lipase 25 U/L (13-60) 12/26/21 19:35 HCG, Qual Negative (Negative) 12/26/21 19:35 Urine Color Colorless (Yellow) 12/26/21 19:15 Urine Appearance Clear (CLEAR) 12/26/21 19:15 Urine pH 6 (5-7) 12/26/21 19:15 Ur Specific [place] 1.006 (1.005-1.030) 12/26/21 19:15 Urine Protein Neg (Negative) 12/26/21 19:15 Urine Glucose (UA) Norm (Normal) 12/26/21 19:15 Urine Ketones Negative (Negative) 12/26/21 19:15 Urine Blood Neg (Negative) 12/26/21 19:15 Urine Nitrate Negative (Negative) 12/26/21 19:15 Urine Bilirubin Neg (Negative) 12/26/21 19:15 Urine Urobilinogen Norm mg/dL (Negative) 12/26/21 19:15 Ur Leukocyte Esterase Negative (Negative) 12/26/21 19:15 Discharge Plan Discharge Patient Disposition: Home Clinical Impression: Epiploic appendagitis, Retained intrauterine contraceptive device (IUD) Condition: Stable Prescriptions: New hydrocodone-acetaminophen 5-325 mg tablet 1 tab PO Q6H PRN (Reason: pain) Qty: 14 0RF ondansetron 4 mg tablet,disintegrating 4 mg PO Q6H PRN (Reason: nausea and vomiting) Qty: 14 0RF No Action ferrous sulfate 325 mg (65 mg iron) tablet 325 mg PO DAILY clonazepam [Klonopin] 1 mg tablet 1 mg PO BID Qty: 60 3RF Rx Instructions: Take one tablet twice per day celecoxib [Celebrex] 200 mg capsule 200 mg PO DAILY Qty: 30 0RF metformin 500 mg Tablet 2,000 mg PO DAILY levothyroxine 200 mcg tablet 175 mcg PO DAILY promethazine 25 mg tablet 25 mg PO Q8H PRN (Reason: N/V) Lamictal 200 mg tablet 400 mg PO DAILY Rx Instructions: Take two tablets every morning Effexor XR 150 mg capsule,extended release 24hr 150 mg PO DAILY Rx Instructions: Take one capsule every morning Discharge Orders: Discharge ED (Routine); Ordered 12/26/21 Ordered By: Josefina Michaels Referrals: Jarrod Noriega MD [Physician] - 1-3 days Jenna Dean FNP [Primary Care Provider] - Discharge Diet: Advance as tolerated Discharge Activity: Resume usual activity Patient Instructions: Epiploic Appendagitis (ED) Coding Level of Care Code ED Kindergarten Instructional Assistant for Milka Fwd Exam Comprehensive
[2021-12-26 23:21] VITALS: BP 132/78; PULSE 77; RESP 15; O2SAT 97
--- NOTE | 2021-12-27 14:42 | DCPLANNER ---
Addendum entered by Lore Lyn 03/01/22 09:58: Patients appointment was rescheduled Addendum entered by Lore Lyn 01/16/22 14:00: Patient has a follow up appointment scheduled for Tuesday, February 15, 2022 at 8:[address] Noriega at [facility]. Clinic will call patient with appointment information. Original Note: print production manager had message to schedule a follow up appointment for patient with [facility]. print production manager sent patients information to the front office staff at [facility]. Patients information will be printed and reviewed. Clinic will call patient with appointment information.
== END 2021-12-26 23:23 | disposition home or self-care (01) ==
PROVIDERS: Emergency Provider Emergency Medicine; PCP Nurse Practitioner Family
DX: K63.89 Other specified diseases of intestine (principal); T83.32XA Displacement of intrauterine contraceptive device, initial encounter
CPT/HCPCS: 36415; 74176; 80053; 81003; 83690; 84703; 85025; 96372; 99285; J1170; J2405

== ENCOUNTER 2022-04-05 10:00 | Emergency (ER) | payer MEDICARE, MEDICAID, SELFPAY ==
--- NOTE | 2022-04-05 10:01 | ECG_ITS ---
[facility] Test Date: 2022-04-05 Pat Name: Colleen Moreno Department: Room: Gender: Female Beet Flumer: : 1985 Requested By: You Emerson Order Number: [id number] Zmazam MD: Toy Domínguez M.D. Measurements Intervals [place] Rate: 100 P: 56 TX: 156 QRS: 69 QRSD: 92 T: 66 QT: 335 QTc: 432 Interpretive Statements SINUS TACHYCARDIA ABNORMAL RHYTHM ECG Compared to ECG 10/19/2021 17:11:16 Sinus rhythm no longer present Electronically Signed On 04-05-2022 16:19:36 ATMOSPHERIC DRIER TENDER by Toy Domínguez M.D. [email or web address]
[2022-04-05 10:02] VITALS: BMI 47.2
[2022-04-05 10:05] VITALS: BP 140/100; PULSE 99; RESP 18; O2SAT 97
--- NOTE | 2022-04-05 10:26 | XRR_ITS ---
PROCEDURE INFORMATION: Exam: XR Chest Exam date and time: 04/05/2022 10:30 AM Age: 36 years old Clinical indication: Cough and dyspnea; Additional info: Dyspnea/cough TECHNIQUE: Imaging protocol: Radiologic exam of the chest. Views: 1 view. COMPARISON: CR (CHEST, ) 10/19/2021 5:58 PM FINDINGS: Lungs: There is a focal, somewhat nodular opacity right cardiophrenic angle that has developed that may represent an area of rounded pneumonia/atelectasis but needs follow-up for confirmation. Remaining lung shay are aerated and clear. Pleural spaces: Unremarkable. No pleural effusion. No pneumothorax. Heart/Mediastinum: Unremarkable. No cardiomegaly. Bones/joints: Unremarkable for age. XR/XR chest 1V portable [id number] IMPRESSION: Interval development of nonspecific focal opacity right middle lobe that may be secondary to rounded pneumonia/atelectasis. Continued follow-up advised.
--- NOTE | 2022-04-05 10:45 | ED_ITS ---
HPI - Chest Pain General: Chief Complaint: Chest Pain Stated Complaint: chest pain Time Seen by Provider: 04/05/22 10:08 Source: patient Mode of arrival: ambulatory History of Present Illness: 36-year-old female presents emergency room complaining of chest pain radiating to her back it began about an hour ago while she was at rest. Began while she was talking on the phone. No productive cough no fever. MD complaint: chest pain Timing of current episode: episodic and constant Onset: during rest Pain location: left chest Pain radiation: back Severity: moderate Quality: sharp Relieving factors: nothing Exacerbating factors: nothing Associated symptoms: Reports dyspnea; Deny abdominal pain, diaphoresis, fever(s), leg edema, nausea, palpitations, sense of impending doom, syncope or vomiting Treatment prior to arrival: none Risk Factors: Coronary artery disease risk factors: none Review of Systems Const: Denies: fever(s), chills, fatigue, malaise or diaphoresis ENMT: Denies: throat pain, ear or mastoid pain, nasal discharge or nasal congestion Card: Denies: chest pain, palpitations or syncope Resp: Reports: dyspnea GI: Denies: abdominal pain, nausea or vomiting : Denies: flank pain, difficulty voiding, dysuria, urinary frequency or urinary urgency Musc: Denies: neck pain or back pain Skin/Breast: Denies: rash or pruritus PFSH ED PFSH: Medical History Hypothyroidism Diagnosed at the age of 13 and is controlled by her primary care provider and medication. Does not have an marketing proposal coordinator. Insulin resistance Diagnosed with insulin resistance at the age of 17 or 18 and states that she takes Metformin for this. Major depressive disorder, recurrent severe without psychotic features Diagnosed with bipolar disorder at the age of 13 and is on medication managed by [facility]. She sees a therapist once a week and the nurse practitioner at [facility] every 4 to 6 weeks. No pertinent past medical history Denies diabetes, asthma, hypertension, seizures, DVT/PE PCP: [facility] Surgical History H/O esophagogastroduodenoscopy (11/08/19) History of x 2 2014 and . History of carpal tunnel surgery Left hand in 2010 and right wrist in February [address] Almonte. History of cholecystectomy Laparoscopic procedure in 2013 Status post tubal ligation 2016 at time of second performed by Dr. Becker at [facility] [place] Family History Grandmother Breast cancer maternal, diagnosed in her late 70s Heart disease maternal Hypertension maternal Grandfather Diabetes paternal Heart disease maternal and paternal Brother Heart disease Mother Hypertension Denies family history of Colon cancer Ovarian cancer Hyperlipidemia Uterine cancer Thyroid condition Stroke Social History Smoking and tobacco status: never smoked Alcohol intake: current Alcohol intake frequency: holidays/special occasions only Female Reproductive History: Date of last menstrual period: 05/22/20 Physical Exam Const: GENERAL APPEARANCE: cooperative and comfortable ORIENTATION/CONSCIOUSNESS: Yes awake, Yes oriented to person, Yes oriented to place and Yes oriented to time HENMT: COMMON NORMALS: normocephalic, atraumatic and hearing grossly normal bilaterally HEAD & SCALP: normocephalic and atraumatic Resp: COMMON NORMALS: normal respiratory effort, No retractions, No use of accessory muscles and clear to auscultation bilaterally AUSCULTATION: clear t o auscultation bilaterally Cardio: COMMON NORMALS: regular rate, regular rhythm and No murmurs present (Cardio) RATE: regular rate RHYTHM: regular rhythm GI: COMMON NORMALS: Soft to palpation and No hepatosplenomegaly present AUSCULTATION: Yes normoactive bowel sounds PALPATION: Yes Soft to palpation, No Tenderness to palpation present (GI), No Guarding due to palpation present (GI) and Yes No hepatosplenomegaly present Extremity: COMMON NORMALS: normal to inspection, capillary refill normal, no clubbing, cyanosis or edema, no calf tenderness and no pedal edema Neuro: SENSORIUM/ORIENTATION: Yes oriented to person, Yes oriented to place and Yes oriented to time Skin: COMMON NORMALS: no rashes or lesions noted GENERAL SKIN EXAM: no rashes or lesions noted Course Vital Signs: Vital signs: Vital Signs Pulse Rate 100 04/05/22 11:42 Respiratory Rate 18 04/05/22 11:42 Blood Pressure 144/91 04/05/22 11:42 Pulse Oximetry 97 04/05/22 11:42 Oxygen Delivery Me thod 04/05/22 11:42 MDM - Chest Pain Medical Decision Making Mild pneumonia on chest x-ray. We will start oral antibiotic EKG is clear the remainder of her labs are unremarkable other than mild elevation of her white count. Otherwise she is asymptomatic her history is not suggestive of coronary artery disease we will discharge patient home with oral antibiotics and improving follow-up with primary care Medical Records I reviewed the patient's medical records. Lab Data I reviewed the patient's lab results. 04/05/22 10:45 04/05/22 10:45 Radiology Impressions Chest X-Ray 04/05/22 10:26 IMPRESSION: Interval development of nonspecific focal opacity right middle lobe that may be secondary to rounded pneumonia/atelectasis. Continued follow-up advised. Laboratory Results WBC 10.7 10^3/uL (4.0-10.0) H 04/05/22 10:45 RBC 4.50 10^6/uL (4.1-5.3) 04/05/22 10:45 Hgb 12.9 g/dL (11.5-15.3) 04/05/22 10:45 Hct 41.1 % (37.0-47.0) 04/05/22 10:45 MCV 91.3 fl (81-99) 04/05/22 10:45 MCH 28.7 pg (28.0-34.0) 04/05/22 10:45 MCHC 31.4 g/dL (30.0-36.0) 04/05/22 10:45 RDW 12.6 % (12.1-15.1) 04/05/22 10:45 Plt Count 317 10^3/cmm (130-400) 04/05/22 10:45 MPV 10.2 fL (7.4-10.4) 04/05/22 10:45 Neut % (Auto) 61.5 % 04/05/22 10:45 Lymph % (Auto) 24.3 % 04/05/22 10:45 [place] % (Auto) 8.3 % 04/05/22 10:45 Eos % (Auto) 3.5 % 04/05/22 10:45 Baso % (Auto) 1.1 % 04/05/22 10:45 Neut # (Auto) 6.60 10^3/uL (1.8-7.7) 04/05/22 10:45 Lymph # (Auto) 2.6 10^3/uL (0.8-4.8) 04/05/22 10:45 [place] # (Auto) 0.9 10^3/uL (0.2-0.9) 04/05/22 10:45 Eos # (Auto) 0.4 10^3/uL (0.0-0.8) 04/05/22 10:45 Baso # (Auto) 0.1 10^3/uL (0.0-0.1) 04/05/22 10:45 Nucleated RBC % (auto) 0 % 04/05/22 10:45 Nucleated RBCs # 0.0 /100WBC 04/05/22 10:45 Sodium 137 mmol/L (136-145) 04/05/22 10:45 Potassium 4.2 mmol/L (3.5-5.1) 04/05/22 10:45 Chloride 102 mmol/L (98-107) 04/05/22 10:45 Carbon Dioxide 22 mmol/L (22-29) 04/05/22 10:45 Anion Gap 17.2 (5-19) 04/05/22 10:45 BUN 9 mg/dL (6-20) 04/05/22 10:45 Creatinine 0.6 mg/dL (0.5-0.9) 04/05/22 10:45 GFR Calculation 114.4 mL/min (90-130) 04/05/22 10:45 Glucose 106 mg/dL (65-115) 04/05/22 10:45 Calculated Osmolality 283 mOsm/kg (285-295) L 04/05/22 10:45 Calcium 9.1 mg/dL (8.5-10.5) 04/05/22 10:45 HCG, Qual Negative (Negative) 04/05/22 10:45 Discharge Plan Discharge Patient Disposition: Home Clinical Impression: Pneumonia Condition: Stable Prescriptions: New levofloxacin 750 mg tablet 750 mg PO DAILY 7 Days Qty: 7 0RF No Action levothyroxine 200 mcg tablet 200 mcg PO QAM lamotrigine [Lamictal] 200 mg tablet 200 mg PO BID Phenergan DM 6.25-15 mg/5 mL Syrup 5 ml PO Q6H PRN (Reason: Cough) trazodone 50 mg tablet 50 mg PO BEDTIME amoxicillin 875 mg tablet 875 mg PO BID metformin 1,000 mg tablet 1,000 mg PO BID Vraylar 4.5 mg capsule 4.5 mg PO QAM Discharge Orders: Discharge ED (Routine); Ordered 04/05/22 Ordered By: You Rudd Referrals: Jenna Dean, MANAGER OF DRILLING [Primary Care Provider] - Discharge Diet: Usual diet Discharge Activity: Resume usual activity Patient Instructions: Opioid Safety, Pain Management Activity Restrictions/Additional Instructions: You were seen today for chest discomfort. Your chest x-ray shows a questionable area of pneumonia which may give rise to the discomfort you are experiencing. Recommend you take the antibiotics once daily for 7 days stop the antibiotics you are prescribed previously. New EKG was normal. Follow-up if not improving. Coding Level of Care Code ED Ice Skating Teacher for Milka Ramachandran
[2022-04-05] MEDS: ketorolac 30 mg/mL INJ IVP (10:51)
[2022-04-05 10:52] LABS: Basophils # 0.1 10^3/uL (0.0-0.1); Basophils % 1.1 %; Eosinophils # 0.4 10^3/uL (0.0-0.8); Eosinophils % 3.5 %; Hematocrit 41.1 % (37.0-47.0); Hemoglobin 12.9 g/dL (11.5-15.3); Lymphocytes # 2.6 10^3/uL (0.8-4.8); Lymphocytes % 24.3 %; Mean Corpuscular HGB Conc 31.4 g/dL (30.0-36.0); Mean Corpuscular Hemoglobin 28.7 pg (28.0-34.0); Mean Corpuscular Volume 91.3 fl (81-99); Mean Platelet Volume 10.2 fL (7.4-10.4); Monocytes # 0.9 10^3/uL (0.2-0.9); Monocytes % 8.3 %; Neutrophils % 61.5 %; Nucleated Red Blood Cells % 0 %; Platelet Count 317 10^3/cmm (130-400); Red Cell Distribution Width 12.6 % (12.1-15.1); White Blood Count 10.7 10^3/uL (4.0-10.0)
[2022-04-05 11:09] LABS: Anion Gap 17.2 (5-19); Blood Urea Nitrogen 9 mg/dL (6-20); Calcium 9.1 mg/dL (8.5-10.5); Carbon Dioxide 22 mmol/L (22-29); Chloride 102 mmol/L (98-107); Glomerular Filtration Rate 114.4 mL/min (90-130); Glucose 106 mg/dL (65-115); HCG, Serum Qual Negative (Negative); Osmolality Calculated 283 mOsm/kg (285-295); Potassium 4.2 mmol/L (3.5-5.1); Sodium 137 mmol/L (136-145)
[2022-04-05 11:42] VITALS: BP 144/91; PULSE 100; RESP 18; O2SAT 97
== END 2022-04-05 12:08 | disposition home or self-care (01) ==
PROVIDERS: Emergency Provider Family Medicine; PCP Nurse Practitioner Family
DX: J18.9 Pneumonia, unspecified organism (principal); Z79.84 Long term (current) use of oral hypoglycemic drugs
CPT/HCPCS: 71045; 80048; 84703; 85025; 93005; 96374; 99285; J1885

== ENCOUNTER → 2022-04-12 09:15 | Outpatient (BNVA) | payer MEDICARE, SELFPAY | PROVIDERS: PCP Nurse Practitioner Family; Visit Provider Obstetrics & Gynecology | DX: E66.9 Obesity, unspecified (principal); Z30.9 Encounter for contraceptive management, unspecified; N94.3 Premenstrual tension syndrome | CPT/HCPCS: 83001; 84146; 84443; 84702; 85025 ==

== ENCOUNTER 2022-05-22 13:02 | Day surgery (SDC) | payer MEDICARE, MEDICAID, SELFPAY ==
[2022-05-20 09:06] VITALS: BMI 47.2
--- NOTE | 2022-05-20 09:35 | ANES.PREANE2 ---
Pre-Anesthetic Assessment Height/Weight: Height 1.55 m Weight 113.398 kg Preop Diagnosis: Left carpal tunnel syndrome Operation Date: 05/22/22 10:20 Proposed Procedures p Diagnostic laparoscopy 14002,T83.32XA(Not Applicable) - Jarrod Noriega MD Familial anesthetic complications: none Was Beta Ashley taken within 24 hours: N/A Was Clonidine taken within 24 hours: N/A Social No alcohol and No tobacco Exam alert, oriented x 3, clear to auscultation bilaterally and regular rate & rhythm Airway Submandibular: within normal limits Cervical ROM: within normal limits Mallampati: Class II Dentition: full Metabolic Morbid Obesity and Thyroid Disease PCOS Neuropsych Anxiety and Depression Anesthetic Plan ASA status: 3 Anesthesia: General Medications/Allergies Home Medications Medication Instructions Recorded Confirmed Last Taken Type levothyroxine 200 mcg tablet 200 mcg PO QAM 08/16/20 05/20/22 04/05/22 History lamotrigine 200 mg tablet 200 mg PO BID 10/23/20 05/20/22 04/05/22 History (Lamictal) cariprazine 4.5 mg capsule 4.5 mg PO QAM 04/05/22 05/20/22 04/05/22 History (Vraylar) metformin 1,000 mg tablet 1,000 mg PO BID 04/05/22 05/20/22 04/05/22 History Allergies Allergy/AdvReac Type Severity Reaction Status Date / Time vancomycin Allergy Unknown Red francois Verified 05/20/22 07:56 syndrome cefaclor [From Ceclor] Allergy Rash as an Verified 05/20/22 07:56 infant-can take amoxicillin morphine Allergy ALGY-Rash Verified 05/20/22 07:56 [facility] Anesthesia Medical History Hypothyroidism Diagnosed at the age of 13 and is controlled by her primary care provider and medication. Does not have an telephone directory deliverer. Insulin resistance Diagnosed with insulin resistance at the age of 17 or 18 and states that she takes Metformin for this. Major depressive disorder, recurrent severe without psychotic features Diagnosed with bipolar disorder at the age of 13 and is on medication managed by [facility]. She sees a therapist once a week and the nurse practitioner at [facility] every 4 to 6 weeks. No pertinent past medical history Denies diabetes, asthma, hypertension, seizures, DVT/PE PCP: [facility] Surgical History H/O esophagogastroduodenoscopy (11/08/19) History of x 2 2014 and . History of carpal tunnel surgery Left hand in 2010 and right wrist in February [address] Almonte. History of cholecystectomy Laparoscopic procedure in 2012 Status post tubal ligation 2015 at time of second performed by Dr. Becker at [facility] [place] Family History Grandmother Breast cancer maternal, diagnosed in her late 70s Heart disease maternal Hypertension maternal Grandfather Diabetes paternal Heart disease maternal and paternal Brother Heart disease Mother Hypertension Denies family history of Colon cancer Ovarian cancer Hyperlipidemia Uterine cancer Thyroid condition Stroke Social History Smoking and tobacco status: never smoked Alcohol intake: current Alcohol intake frequency: holidays/special occasions only Data Anesthesia Cardiac Studies: No Data to Display
[2022-05-22] VITALS (7 sets, daily range): BP systolic 97–151; BP diastolic 55–128; PULSE 70–107; RESP 16–18; TEMP 36.1–36.6; O2SAT 95–99
--- NOTE | 2022-05-22 13:16 | W.PM.OPSUD ---
Surgery/Procedure H&P Update DATE OF PROCEDURE: May 22, 2022 DATE H&P PERFORMED: 05/20/22 H&P UPDATE INFORMATION: I have reviewed H&P completed within last 30 days, I have examined patient prior to procedure and No changes to prior documentation PREOP DIAGNOSIS: Pelvic pain, IUD misplaced in pelvis PLANNED PROCEDURE: Operation Date: 05/22/22 14:45 Proposed Procedures p Diagnostic laparoscopy 72077,T83.32XA(Not Applicable) - Jarrod Noriega MD
[2022-05-22 13:21] LABS: OR HCG Qualitative Urine Negative (Negative)
[2022-05-22] MEDS: scopolamine 1.5 Patch 1 PATCH TRANSDERMA (13:28)
[2022-05-22] MEDS: sodium chloride 0.9% 500 ML IV (13:43)
[2022-05-22 13:48] LABS: Add Urine Microscopic? YES; Bilirubin Urine Neg (Negative); Blood Urine 2+ (Negative); Glucose Urine UA Norm (Normal); Ketones Urine Negative (Negative); Leukocyte Esterase Urine Negative (Negative); Nitrate Urine Negative (Negative); Protein Urine Neg (Negative); Urine Appearance Clear (CLEAR); Urine Color Yellow (Yellow); Urobilinogen Urine Neg (Negative); pH Urine 5 (5-7)
[2022-05-22 14:04] LABS: Bacteria Urine TRACE /hpf; RBC Urine RARE /hpf (0-2); WBC Urine 0-4 /hpf (0-5)
[2022-05-22 14:18] LABS: Alanine Aminotransferase 48 U/L (0-33); Albumin Level 4.4 g/dL (3.5-5.2); Alkaline Phosphatase 72 U/L (35-105); Anion Gap 16.3 (5-19); Aspartate Amino Transferase 37 U/L (0-32); Blood Urea Nitrogen 8 mg/dL (6-20); Calcium 9.2 mg/dL (8.5-10.5); Carbon Dioxide 22 mmol/L (22-29); Chloride 105 mmol/L (98-107); Globulin 3.4 g/dL (1.3-4.6); Glomerular Filtration Rate 95.8 mL/min (90-130); Glucose 88 mg/dL (65-115); Osmolality Calculated 286 mOsm/kg (285-295); Potassium 4.3 mmol/L (3.5-5.1); Sodium 139 mmol/L (136-145); Total Bilirubin 0.8 mg/dL (0.15-1.2); Total Protein 7.8 g/dL (6.6-8.7)
[2022-05-22] MEDS: sodium chloride 0.9% 1,000 ML 30 ML IV ×2 (14:33)
[2022-05-22] MEDS: levofloxacin-dextrose 5 % 750 MG/150 ML PREMIX 100 MG IV (14:36)
[2022-05-22 14:42] LABS: Basophils # 0.1 10^3/uL (0.0-0.1); Basophils % 0.9 %; Eosinophils # 0.3 10^3/uL (0.0-0.8); Eosinophils % 2.8 %; Hematocrit 41.7 % (37.0-47.0); Hemoglobin 13.6 g/dL (11.5-15.3); Lymphocytes # 2.8 10^3/uL (0.8-4.8); Lymphocytes % 29.3 %; Mean Corpuscular HGB Conc 32.6 g/dL (30.0-36.0); Mean Corpuscular Hemoglobin 28.6 pg (28.0-34.0); Mean Corpuscular Volume 87.8 fl (81-99); Mean Platelet Volume 10.5 fL (7.4-10.4); Monocytes # 0.7 10^3/uL (0.2-0.9); Neutrophils % 59.4 %; Nucleated Red Blood Cells % 0 %; Platelet Count 369 10^3/cmm (130-400); Red Blood Count 4.75 10^6/uL (4.1-5.3); Red Cell Distribution Width 12.4 % (12.1-15.1); White Blood Count 9.6 10^3/uL (4.0-10.0)
--- NOTE | 2022-05-22 15:28 | P.OP_ITS ---
Operative Report Date of procedure: May 22, 2022 Pre-op diagnosis: Preop Diagnosis Pelvic pain, IUD misplaced in pelvis Post-op diagnosis: Same as above Post-op findings: Mirena IUS in left pelvis fosa Procedure done: Diagnostic laparoscopy. Laparoscopic retrieval of intra-abdominal/pelvic IUD Specimens removed/disposition: Mirena IUS/IUD Surgeon: Jarrod Norieag MD Estimated blood loss (mL): 5 IV fluids (mL): 400 Urine output (mL): 100 Procedure: After informed consent, the patient was taken to the operating room where general anesthesia was administered. The patient was examined under anesthesia and found to have a normal uterus with normal adnexa. She was placed in the dorsal lithotomy position and prepped and draped in sterile fashion. Pre- Procedure Time-Out verifying the correct patient identity, correct procedure verified with consent, correct site and side, correct patient position, availability of correct implants and any special equipment or requirements was performed and acknowledge by the OR team. A weighted speculum was placed in the vagina, and the anterior lip of cervix was grasped with the single toothed tenaculum. A uterine manipulator was advanced into the endocervical. Tenaculum was removed after uterine manipulator was secured. The speculum was removed from the vagina. An intraumbilical incision was made with a scalpel. While tenting up on the abdomen, a Verres needle with sleeve was admitted into the intra-abdominal cavity. A saline drop test was performed and noted to be within normal limits. Pneumoperitoneum was attained with 4 liters of carbon dioxide. The Verres needle was removed. A 5 mm trocar and sleeve were admitted into the abdomen and laparoscopic confirmation of location was achieved, A second incision was made 3 cm above the symphysis pubis, and a 5 mm trocar and sleeve were admitted into the abdomen under direct, laparoscopic visualization without complication. A survey revealed normal abdominal anatomy but pelvic survey shows normal brenden betty, left and right adnexa. A 5 mm blunt probe was advanced through the second trocar sleeve, and light manipulation of ovaries and uterus to assess the posterior aspects was performed. A Mirena IUS was noted in the left pelvic fosa next to uterosecral ligament. The AUS was grasped with laparoscopic forceps and was removed from abdominal cavity through the suprapubic laparoscopic port. The 5 mm trocars were removed under direct visualization and no bleeding noted. The carbon dioxide was allowed to escape from the abdomen. The instruments were removed, and skin was closed with 3-0 Vicryl in a subcuticular fashion and cover with Dermabond. The instruments were removed from the vagina, and excellent hemostasis was noted. The patient tolerated the procedure well, and sponge, lap and needle count were correct times two. The patient taken to the recovery room in good condition.
[2022-05-22] MEDS: ondansetron 2 mg/ML SDV 2 mL 4 MG IVP (15:50)
--- NOTE | 2022-05-22 16:51 | P.ANESUD_ITS ---
Pre-Anesthetic Update Pre-Anesthetic Assessment: Date of Surgery/Procedure: 05/22/22 Preop Shirley gnosis: Pelvic pain, IUD misplaced in pelvis Proposed Procedure: Operation Date: 05/22/22 14:45 Proposed Procedures p Diagnostic laparoscopy 37516,T83.32XA(Not Applicable) - Jarrod Noriega MD Any changes to Pre-Anesthetic Assessment?: No Last Intake: Intake Last Liquid Date 05/21/22 Last Liquid Time 17:00 Last Solid Date 05/21/22 Last Solid Time 18:00 Labs Last 48hrs: Short CBC 05/22/22 Range/Units 13:30 WBC 9.6 (4.0-10.0) 10^3/ uL Hgb 13.6 (11.5-15.3) g/dL Hct 41.7 (37.0-47.0) % MCV 87.8 (81-99) fl Plt Count 369 (130-400) 10^3/c mm Neut % (Auto) 59.4 % Neut # (Auto) 5.70 (1.8-7.7) 10^3/u L BMP 05/22/22 13:30 Sodium 139 Potassium 4.3 Chloride 105 Carbon Dioxide 22 BUN 8 Creatinine 0.7 Glucose 88 Calcium 9.2 Liver Function 05/22/22 Range/Units 13:30 Total Bilirubin 0.8 (0.15-1.2) mg/dL AST 37 H (0-32) U/L ALT 48 H (0-33) U/L Alkaline Phosphata se 72 (35-105) U/L Albumin 4.4 (3.5-5.2) g/dL Urine 05/22/22 Range/Units 13:15 Urine Color Yellow (Yellow) Urine Appearance Clear (CLEAR) Urine pH 5 (5-7) Ur Specific Gravit y 1.020 (1.005-1.030) Urine Protein Neg (Negative) Urine Glucose (UA) Norm (Normal) Urine Ketones Negative (Negative) Urine Nitrate Negative (Negative) Urine Bilirubin Neg (Negative) Ur Leukocyte Haley ase Negative (Negative) Urine RBC Rare (0-2) /hpf Urine WBC 0-4 H (0-5) /hpf Blood Bank 05/22/22 13:30 Blood Type A Positive Rho(D) Type Positive Antibody Screen Negative Vitals: Temperature 97.6 F 05/22/22 16:00 Temperature Source Temporal Artery S can 05/22/22 16:00 Pulse Rate 78 05/22/22 16:15 Respiratory Rate 17 05/22/22 16:15 Blood Pressure 108/76 05/22/22 16:15 Blood Pressure Fide n 86 05/22/22 16:15 Pulse Oximetry 97 05/22/22 16:15 Oxygen Delivery Me thod 05/22/22 16:15 Oxygen Flow Rate 6 05/22/22 15:44 Exam: Pre-Anes Outpt Exam: alert, oriented x 3, clear to auscultation bilaterally and regular rate & rhythm Cardiac Studies: No Data to Display
--- NOTE | 2022-05-22 16:51 | ANE.PACU2 ---
Inpatient post-anesthesia follow up: Airway intact: Yes Vital signs: Temperature 97.6 F Pulse Rate 78 Respiratory Rate 17 Blood Pressure 108/76 Pulse Oximetry 97 Oxygen Delivery Me thod Room Air Oxygen Flow Rate 6 Fraction of Inspir ed Oxygen Hydration adequate: Yes Nausea and vomiting: Yes Pain level: 3 Mental status: Baseline
== END 2022-05-22 16:30 | disposition home or self-care (01) ==
PROVIDERS: PCP Nurse Practitioner Family; Visit Provider Obstetrics & Gynecology
PROC: (CPT 49320; principal; 2022-05-22 14:35)
DX: Z30.432 Encounter for removal of intrauterine contraceptive device (principal); E66.01 Morbid (severe) obesity due to excess calories; Z68.42 Body mass index [BMI] 45.0-49.9, adult; E28.2 Polycystic ovarian syndrome; Z79.84 Long term (current) use of oral hypoglycemic drugs
CPT/HCPCS: 58301; 36415; 80053; 81001; 81025; 84703; 85025; 86850; 86900; 88300; J0330; J1100; J1956; J2250; J2405; J2704; J2710; J3010; J3490; J7030; J7040

== ENCOUNTER 2022-10-02 17:06 | Emergency (ER) | payer MEDICARE, MEDICAID, SELFPAY ==
--- NOTE | 2022-10-02 17:17 | ED_ITS ---
HPI - Extremity Problem General: Chief complaint: Extremity Injury, Lower Stated complaint: right ankle pain Time Seen by Provider: 10/02/22 17:17 History of Present Illness: 37-year-old lady presenting with concern over ankle injury. She notes possibly just stepping funny or rolling her ankle a few days ago. Denies proceeding syndrome or symptoms. Immediately had some pain however thought she may have just twisted it. Subsequently however has had continued pain. Moderate in tensity becomes severe with palpation and ambulation. No other specific changes in health, exacerbating, or alleviating factors identified. Onset (ago): day(s) Pain Consistency: constant Quality: aching and sharp Exacerbating factors: range of motion, weight bearing, walking and palpation Review of Systems General: Reports: 10 or more systems reviewed and unremarkable except in HPI and below PFSH ED PFSH: Medical History Hypothyroidism Diagnosed at the age of 13 and is controlled by her primary care provider and medication. Does not have an replenishment merchandising associate. Insulin resistance Diagnosed with insulin resistance at the age of 17 or 18 and states that she takes Metformin for this. Major depressive disorder, recurrent severe without psychotic features Diagnosed with bipolar disorder at the age of 13 and is on medication managed by [facility]. She sees a therapist once a week and the nurse practitioner at [facility] every 4 to 6 weeks. No pertinent past medical history Denies diabetes, asthma, hypertension, seizures, DVT/PE PCP: [facility] Surgical History H/O esophagogastroduodenoscopy (11/08/19) History of x 2 2014 and . History of carpal tunnel surgery Left hand in 2010 and right wrist in February [address] Almonte. History of cholecystectomy Laparoscopic procedure in 2012 History of laparoscopy (~05/22/22) Laparoscopic retrieval of intra-abdominal/pelvic IUD;performed by Dr. Noriega at [facility]. Status post tubal ligation 2016 at time of second performed by Dr. Becker at [facility] [place] Family History Grandmother Breast cancer maternal, diagnosed in her late 70s Heart disease maternal Hypertension maternal Grandfather Diabetes paternal Heart disease maternal and paternal Brother Heart disease Mother Hypertension Denies family history of Colon cancer Ovarian cancer Hyperlipidemia Uterine cancer Thyroid condition Stroke Social History Smoking and tobacco status: never smoked Alcohol intake: current Alcohol intake frequency: holidays/special occasions only Substance/Drug Use: never Physical Exam Const: COMMON NORMALS: alert GENERAL APPEARANCE: cooperative and well developed HENMT: COMMON NORMALS: normocephalic and atraumatic HEAD & SCALP: normocephalic and atraumatic Eye: COMMON NORMALS: conjunctivae normal CONJUNCTIVA: Yes conjunctivae normal SCLERA: sclerae normal Neck/C-Spine: COMMON NORMALS: supple GENERAL: Yes trachea midline Resp: COMMON NORMALS: normal respiratory effort EFFORT & INSPECTION: Yes able to speak in complete sentences Cardio: COMMON NORMALS: regular rate and regular rhythm RATE: regular rate RHYTHM: regular rhythm GI: COMMON NORMALS: Soft to palpation PALPATION: Yes Soft to palpation and No Tenderness to palpation present (GI) Extremity: NARRATIVE EXTREMITY EXAM: No evidence of open wounds or joint instability. Tenderness with palpation range of motion of lateral medial aspect of the ankle. GENERAL: Yes normal exam except as noted and No edema Neuro: COMMON NORMALS: moves all extremities SENSORIUM/ORIENTATION: Yes alert and No Orientation impaired Psych: COMMON NORMALS: mental status grossly normal and Normal thought process present THOUGHT PROCESS: Normal thought process present MDM - Extremity (Nontraumatic) Medical Decision Making 37-year-old lady presenting due to concern for ankle pain. Exam as above. CMS intact. X-ray negative for fracture. Likely sprain/strain. The results of ED evaluation were discussed with the patient including prescriptions and/or symptomatic cares (if applicable) including appropriate and responsible use, followup plan, and return precautions. The patient verbalized understanding and felt safe for discharge. Medical Records I reviewed the patient's medical records. Lab Data I reviewed the patient's lab results. Radiology Impressions Ankle X-Ray 10/02/22 17:21 IMPRESSION: 1. Negative for fracture or dislocation 2. Lateral malleolar soft tissue swelling. 3. Os trigonum, a normal variant. 4. Small calcified heel spur. Discharge Plan Discharge Patient Disposition: Home Clinical Impression: Ankle sprain and strain Condition: Stable Prescriptions: New hydrocodone-acetaminophen 5-325 mg tablet 1 tab PO Q6H PRN (Reason: pain) Qty: 10 0RF ondansetron 4 mg tablet,disintegrating 4 mg PO Q8H PRN (Reason: nausea and vomiting) Qty: 15 0RF No Action methylprednisolone [Medrol (Ryan)] 4 mg tablets,dose pack See Rx Instructions PO PER PKG DIR Qty: 21 0RF Rx Instructions: PO PER PKG DIR levothyroxine 200 mcg tablet 200 mcg PO QAM lamotrigine [Lamictal] 200 mg tablet 200 mg PO BID metformin 1,000 mg tablet 1,000 mg PO BID Vraylar 4.5 mg capsule 4.5 mg PO QAM ibuprofen 800 mg tablet 800 mg PO TID PRN (Reason: pain) Qty: 60 0RF acetaminophen 325 mg capsule 325 mg PO Q4H PRN (Reason: fever or pain) Qty: 60 0RF Discharge Orders: Discharge ED (Routine); Ordered 10/02/22 Ordered By: Fabio Wynn Referrals: Jenna Dean FNP [Primary Care Provider] - Discharge Diet: Usual diet Discharge Activity: Increase activity as tolerated Patient Instructions: Ankle Sprain (ED), Opioid Safety Activity Restrictions/Additional Instructions: Thank you for visiting the emergency department. You were seen and evaluated for ankle pain after fall. The most likely cause of your pain is related to soft tissue injury. No broken bones were identified. The treatment is supportive and I will message case management for follow-up. I will prescribe [place] and antinausea medication. You may use [id number] medications such as acetaminophen and ibuprofen for pain however please do not exceed the daily recommended dosage as listed on the packaging and please keep in mind that many namebrand medications contain the same active ingredients. Additionally you must account for the 325 mg of acetaminophen in each [place] tablet for your total daily dose. Please avoid these medications if previously instructed to do so by another physician due to other underlying medical condition. Return for uncontrolled symptoms or anything else that you are concerned about and feel needs emergency department evaluation. Coding Level of Care Code ED Wheel Alignment Mechanic for Milka Ramachandran
--- NOTE | 2022-10-02 17:21 | XRR_ITS ---
PROCEDURE INFORMATION: Exam: XR Right Ankle Exam date and time: 10/02/2022 5:26 PM Age: 37 years old Clinical indication: Pain; Ankle; Right; Additional info: Inversion injury, medial and lateral pain TECHNIQUE: Imaging protocol: Radiologic exam of the right ankle. Views: 3 or more views. COMPARISON: No relevant prior studies available. FINDINGS: Bones/joints: Lateral malleolar soft tissue swelling. Os trigonum, a normal variant. Small calcified heel spur. Soft tissues: See Bones/joints finding. XR/XR ankle RT min 3V* [id number] IMPRESSION: 1. Negative for fracture or dislocation 2. Lateral malleolar soft tissue swelling. 3. Os trigonum, a normal variant. 4. Small calcified heel spur.
[2022-10-02] MEDS: HYDROcodone-acetaminophen 5-325 mg Tablet 1 TAB PO (17:55)
[2022-10-02] MEDS: ondansetron 2 mg/ML SDV 2 mL 4 MG IVP (17:56)
--- NOTE | 2022-10-03 07:32 | DCPLANNER ---
Addendum entered by Lore Lyn 10/25/22 10:31: Patient did attend this appointment with ortho Addendum entered by Lore Lyn 10/09/22 13:25: Patient has a follow up appointment scheduled for September at 10:[address] Lieberman at ortho. Addendum entered by Lore Lyn 10/03/22 11:28: network operations project manager received the following message from the ortho clinic regarding follow up appointment: attempted to call pt. The phone answered but was silent. Called again but it went to a busy tone. Will try again later to schedule with [facility] Original Note: network operations project manager had message to schedule a follow up appointment for patient with podiatry. network operations project manager sent patients information to the front office staff at podiatry. Patients information will be printed and reviewed. Clinic will call patient with appointment information.
== END 2022-10-02 18:14 | disposition home or self-care (01) ==
PROVIDERS: Emergency Provider Emergency Medicine; PCP Nurse Practitioner Family
DX: S93.401A Sprain of unspecified ligament of right ankle, initial encounter (principal); X58.XXXA Exposure to other specified factors, initial encounter
CPT/HCPCS: 73610; 96374; 99284; J2405

== ENCOUNTER → 2022-10-04 09:55 | Outpatient (BNVA) | payer MEDICARE, SELFPAY | PROVIDERS: PCP Nurse Practitioner Family; Visit Provider Podiatrist Foot & Ankle Surgery | DX: R60.9 Edema, unspecified; S93.401A Sprain of unspecified ligament of right ankle, initial encounter; S96.911A Strain of unspecified muscle and tendon at ankle and foot level, right foot, initial encounter; X50.9XXA Other and unspecified overexertion or strenuous movements or postures, initial encounter; M76.821 Posterior tibial tendinitis, right leg | CPT/HCPCS: 99204 ==

== ENCOUNTER → 2022-10-17 10:10 | Outpatient (BNVA) | payer MEDICARE, SELFPAY | PROVIDERS: PCP Nurse Practitioner Family; Visit Provider Podiatrist Foot & Ankle Surgery | DX: R60.9 Edema, unspecified; M25.571 Pain in right ankle and joints of right foot; S93.401A Sprain of unspecified ligament of right ankle, initial encounter; S96.911A Strain of unspecified muscle and tendon at ankle and foot level, right foot, initial encounter; X50.9XXA Other and unspecified overexertion or strenuous movements or postures, initial encounter; M76.821 Posterior tibial tendinitis, right leg | CPT/HCPCS: 99213 ==

== ENCOUNTER → 2023-01-03 10:39 | Outpatient (BNVA) | payer MEDICARE, SELFPAY | PROVIDERS: PCP Nurse Practitioner Family; Visit Provider Obstetrics & Gynecology | DX: G56.02 Carpal tunnel syndrome, left upper limb (principal); Z87.42 Personal history of other diseases of the female genital tract | CPT/HCPCS: 83001; 84146; 84443; 84702 ==

== ENCOUNTER → 2023-02-04 13:17 | Outpatient (BNVA) | payer MEDICARE, SELFPAY | PROVIDERS: PCP Nurse Practitioner Family; Visit Provider Obstetrics & Gynecology | DX: N92.6 Irregular menstruation, unspecified (principal) | CPT/HCPCS: 76830 ==

== ENCOUNTER → 2023-07-28 11:02 | Outpatient (BNVA) | payer MEDICARE, SELFPAY | PROVIDERS: PCP Nurse Practitioner Family; Visit Provider Podiatrist Foot & Ankle Surgery | DX: M79.671 Pain in right foot (principal); S93.401A Sprain of unspecified ligament of right ankle, initial encounter; S96.911A Strain of unspecified muscle and tendon at ankle and foot level, right foot, initial encounter; R60.9 Edema, unspecified; M76.821 Posterior tibial tendinitis, right leg; X58.XXXA Exposure to other specified factors, initial encounter | CPT/HCPCS: 73610; 73630; 99213 ==

== ENCOUNTER → 2024-02-12 09:02 | Outpatient (BNVA) | payer MEDICARE, SELFPAY | PROVIDERS: PCP Nurse Practitioner Family; Visit Provider Podiatrist Foot & Ankle Surgery | DX: M76.821 Posterior tibial tendinitis, right leg; S96.911A Strain of unspecified muscle and tendon at ankle and foot level, right foot, initial encounter; S93.401A Sprain of unspecified ligament of right ankle, initial encounter; X58.XXXA Exposure to other specified factors, initial encounter | CPT/HCPCS: 99213 ==

== ENCOUNTER 2024-02-24 06:45 | Outpatient (CLI) | payer MEDICARE, SELFPAY ==
--- NOTE | 2024-02-24 07:15 | MRR_ITS ---
PROCEDURE INFORMATION: Exam: MR Right Lower Extremity Joint Without Contrast; Ankle Exam date and time: 02/24/2024 6:59 AM Age: 38 years old Clinical indication: Pain; Ankle; Right; Additional info: Tendon tear TECHNIQUE: Imaging protocol: Magnetic resonance imaging of the right lower extremity without contrast. Exam focused on the ankle. COMPARISON: CR XR ankle RT min 3V* [id number] 07/28/2023 11:13 AM FINDINGS: Bones/joints: Normal alignment. No focal osseous lesion. No acute fracture. The articular cartilage appears intact. LIGAMENTS: Distal tibiofibular syndesmosis: Unremarkable. No tear. Anterior talofibular ligament: Mild abnormal thickening and increased signal intensity within the anterior talofibular ligament is present without evidence of a tear. Posterior talofibular ligament: Unremarkable. No tear. Calcaneofibular ligament: Unremarkable. No tear. Deltoid ligament complex: Unremarkable. No tear. TENDONS: Flexor tendons of foot: Unremarkable as visualized. Tibialis posterior tendon: Unremarkable as visualized. Peroneal tendons: Unremarkable as visualized. Extensor tendons of foot: Unremarkable as visualized. Tibialis anterior tendon: Unremarkable as visualized. Achilles tendon: Mild intrasubstance abnormal increased signal intensity in the distal Achilles tendon is present. Tarsal canal (Sinus tarsi): Mild edema throughout the sinus tarsi is present. Tarsal tunnel: Unremarkable. Soft tissues: Mild anterolateral capsular edema is present. Plantar fascia: Moderate thickening and abnormal increased signal intensity in the proximal plantar fascial central bundle is identified. Vasculature: The soft tissues adjacent to the posterior aspect of the posterior subtalar joint an ovoid region of lobulated fluid signal intensity compatible with vasculature measures 2.1 x 1.3 x 2.1 cm on series 8, image 13. MR/MR ankle RT wo con* [id number] IMPRESSION: 1. Mild sprain of the anterior talofibular ligament, associated with mild anterolateral capsular edema. 2. Mild Achilles tendinosis. 3. Plantar fasciitis. 4. Edema in the sinus tarsi is noted, which can be associated with sinus tarsi syndrome. 5. Lobulated fluid signal intensity in the soft tissues adjacent to the posterior aspect appears to represent slightly prominent normal venous structures. The possibility of a vascular malformation is less likely but cannot be entirely excluded. Consider nonemergent MRI with and without contrast for further assessment.
== END 2024-02-24 06:46 | disposition home or self-care (01) ==
LOC: RAD 06:47
PROVIDERS: PCP Nurse Practitioner Family; Visit Provider Podiatrist Foot & Ankle Surgery
DX: S93.491A Sprain of other ligament of right ankle, initial encounter (principal); M76.61 Achilles tendinitis, right leg; M72.2 Plantar fascial fibromatosis; R93.89 Abnormal findings on diagnostic imaging of other specified body structures; X58.XXXA Exposure to other specified factors, initial encounter
CPT/HCPCS: 73721

== ENCOUNTER → 2024-04-08 15:34 | Outpatient (BNVA) | payer MEDICARE, SELFPAY | PROVIDERS: PCP Nurse Practitioner Family; Visit Provider Podiatrist Foot & Ankle Surgery | DX: S96.911A Strain of unspecified muscle and tendon at ankle and foot level, right foot, initial encounter (principal); S93.401A Sprain of unspecified ligament of right ankle, initial encounter; M76.821 Posterior tibial tendinitis, right leg; X58.XXXA Exposure to other specified factors, initial encounter | CPT/HCPCS: 99213 ==

== ENCOUNTER 2024-05-03 06:25 | Day surgery (SDC) | payer MEDICARE, SELFPAY ==
[2024-05-03] VITALS (10 sets, daily range): BP systolic 92–158; BP diastolic 68–88; PULSE 82–101; RESP 16–19; TEMP 36.1–36.8; O2SAT 92–98
--- NOTE | 2024-05-03 | XR_ITS ---
WS: [id number] Right ankle, C-arm fluoroscopy views, 05/03/2024 Clinical Data: OR PICS Comparison: Right ankle, 07/28/2023 Findings: Dr. Lieberman performed an Achilles tendon repair XR/XR ankle RT 1V [id number] Impression: Achilles tendon repair.
[2024-05-03 06:33] LABS: OR HCG Qualitative Urine Negative (Negative)
[2024-05-03] MEDS: sodium chloride 0.9% 1,000 ML 30 ML IV (06:48)
[2024-05-03] MEDS: gabapentin 300 mg Capsule PO (06:50)
[2024-05-03] MEDS: CELEcoxib 200 mg Capsule 400 MG PO (06:51)
--- NOTE | 2024-05-03 06:51 | W.PM.OPSUD ---
Surgery/Procedure H&P Update DATE OF PROCEDURE: May 03, 2024 DATE H&P PERFORMED: 04/08/24 H&P UPDATE INFORMATION: I have reviewed H&P completed within last 30 days, I have examined patient prior to procedure, No changes to prior documentation and [place] [facility] [place] date indicated PREOP DIAGNOSIS: Right ankle os trigonum syndrome PLANNED PROCEDURE: Operation Date: 05/03/24 08:25 Proposed Procedures p OS Trigonum Exicision(Right) - Rich Lieberman DPM
[2024-05-03] MEDS: midazolam 1 mg/mL INJ 2 mL 2 MG IVP (07:01)
[2024-05-03] MEDS: clindamycin 600 MG/50 ML PREMIX 100 MG IV (07:17)
--- NOTE | 2024-05-03 07:17 | P.ANESASSM_ITS ---
Pre-Anesthetic Assessment Height/Weight: Height 1.55 m Weight 112.037 kg Temp Pulse Resp BP Pulse Ox O2 Del Method 97 F L 101 H 18 121/86 97 Room Air 05/03/24 06:36 05/03/24 06:36 05/03/24 06:36 05/03/24 06:36 05/03/24 06:36 05/03/24 06:36 Preop Diagnosis: Right ankle os trigonum syndrome Operation Date: 05/03/24 08:25 Proposed Procedures p OS Trigonum Exicision(Right) - Rich Lieberman DPM Familial anesthetic complications: emotional lability Was Beta Ashley taken within 24 hours: N/A Was Clonidine taken within 24 hours: N/A Last intake: Intake Last Liquid Date 05/02/24 Last Liquid Time 20:00 Last Solid Date 05/02/24 Last Solid Time 20:00 Social No alcohol and No tobacco marijuana - last night Exam alert, oriented x 3, clear to auscultation bilaterally and regular rate & rhythm Airway Mallampati: Class IV Dentition: full Metabolic Morbid Obesity pcos Neuropsych Bipolar Anesthetic Plan ASA status: 3 Anesthesia: General and Regional (specify below) Risk of > 500 ml blood loss (7ml/kg in children): No Medications/Allergies Home Medications ?Medication ?Instructions ?Recorded ?Confirmed ?Last Taken ?Type levothyroxine 200 mcg tablet 200 mcg PO QAM 08/16/20 0 05/03/24 05/03/24 History lamotrigine 200 mg tablet 200 mg PO BID 10/23/2005/0305/02/24 History (Lamictal) cariprazine 4.5 mg capsule 4.5 mg PO QAM 04/05/2204/2405/02/24 History (Vraylar) metformin 1,000 mg tablet 1,000 mg PO BID 04/05/2212/1805/02/24 History hydrocodone 5 mg-acetaminophen 325 1 tab PO Q6H PRN pa in #28 tabs 05/03/24 Unknown Rx mg tablet Allergies Allergy/AdvReac Type Severity Reaction Status Date / Time vancomycin Allergy Unknown Red francois Verified 04/08/24 15:37 syndrome cefaclor [facility] Allergy Rash as an Verified 04/08/24 15:37 -can take amoxicillin morphine Allergy ALGY-Rash Verified 04/08/24 15:37 Current Medications Generic Name Dose Route Start Last Admin Trade Name Freq PRN Reason Stop Dose Admin Sodium Chloride 1,000 mls @ 30 mls/hr 05/03/24 06:30 05/03/24 06:48 Sodium Chloride 0.9% IV 05/04/24 06:29 30 mls/hr .Q24H TREVON Administration Midazolam HCl 2 mg 05/03/24 06:27 05/03/24 07:01 Midazolam 1 Mg/Ml Inj 2 Ml IVP 2 mg Q5M PRN Administration [facility] Medical History Insulin resistance Diagnosed with insulin resistance at the age of 17 or 18 and states that she takes Metformin for this. No pertinent past medical history Denies diabetes, asthma, hypertension, seizures, DVT/PE PCP: NEEL Evangelista Hypothyroidism Diagnosed at the age of 13 and is controlled by her primary care provider and medication. 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 Major depressive disorder, recurrent severe without psychotic features Diagnosed with bipolar disorder at the age of 13 and is on medication managed by [facility]. She sees a therapist once a week and the nurse practitioner at [facility] every 4 to 6 weeks. Surgical History History of laparoscopy (~05/22/22) Laparoscopic retrieval of intra-abdominal/pelvic IUD;performed by Dr. Noriega at [facility]. Status post tubal ligation 2015 at time of second performed by Dr. Becker at [facility] [place] History of carpal tunnel surgery Left hand in 2010 and right wrist in February [address] Almonte. H/O esophagogastroduodenoscopy (11/08/19) History of cholecystectomy Laparoscopic procedure in 2012 History of x 2 2014 and . Family History Grandmother Breast cancer maternal, diagnosed in her late 70s Heart disease maternal Hypertension maternal Grandfather Diabetes paternal Heart disease maternal and paternal Brother Heart disease Mother Hypertension Denies family history of Colon cancer Ovarian cancer Hyperlipidemia Uterine cancer Thyroid disease Stroke Social History Smoking and tobacco/nicotine status: never used tobacco/nicotine Alcohol intake: current Alcohol intake frequency: holidays/special occasions only Substance/Drug Use: never Data Anesthesia Cardiac Studies: No Data to Display
--- NOTE | 2024-05-03 07:19 | ANES.PROC ---
Anesthesia Procedures Procedure/Date: 05/03/24 Nerve Block ^: Nerve Block 1: Main Anesthesia: general anesthesia Time Out Performed: Yes Consent: requested by attending/covering physician, from patient, from other, risks and benefits reviewed and patient agrees to proceed Nerve block location: popliteal (R) Anesthesia monitors applied: pulse oximetry, EKG, BP cuff and oxygen Nerve block position: supine Anesthetic Used: ropivicaine 0.5% (20 ml) and with decadron (4 mg) Ultrasound used to: recognize landmarks Nerve Stimulator Used?: No Interscalene/Femoral BLK: 4 stimuplex 21 g needle used for position and inplane approach, visualize local anesthetic spread and no vascular puncture identified Injection: neg aspiration of heme Patient Tolerated Procedure: well and no complications Complications: none
[2024-05-03] MEDS: BUPivacaine 0.5% INJ 10 mL INJECTION (08:25)
--- NOTE | 2024-05-03 08:29 | P.BOP_ITS ---
Date of procedure: 05/03/2024 Surgeon name: Joanne AnthonyPRemedios [facility] Information Provider(s) name(s): Quan Procedure(s) performed: Right ankle os trigonum excision Description of findings: Os trigonum Estimated blood loss: 3 cc Tourniquet time: 41 minutes Specimen(s) removed: Os trigonum right foot Post-operative diagnosis: Os trigonum syndrome right ankle
--- NOTE | 2024-05-03 08:30 | P.OP_ITS ---
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 Rich Lieberman DPM Health Care Marketing Manager: Quan Estimated blood loss: 3 cc Tourniquet time: 41 minutes Complications: None Patient is a 38-year-old female that has a history of right ankle os trigonum syndrome. The patient has had the aforementioned chief complaint for some time. Conservative treatment measures have been attempted and the patient has opted for surgical intervention at this time. A lengthy discussion regarding the procedure, including risks and complications has been had with the patient and is noted in the recent clinic note. Written and verbal consent have been obtained. All patient questions have been answered to the patient?s satisfaction. No written or verbal guarantees have been given or implied. The patient has been NPO since midnight. The history has been reviewed and the history and physical is current. The signed consent was confirmed and placed in the patient chart. Patient imaging has been reviewed and is consistent with the diagnosis. Under mild sedation, the patient was brought into the operating room and placed on the table in the supine position. IV antibiotics were given by the anesthesia team as preoperative surgical prophylaxis. General sedation was then performed by the anesthesiateam. A pneumatic tourniquet was then placed about the right thigh. The operative extremity was then prepped and draped in the usual fashion. The extremity was then elevated and exsanguinated before the tourniquet was inflated to 325 mmHg. After inflation, the following procedure was then performed. Attention was directed to the medial aspect of the right ankle where a 3.5 cm incision was made between the interval between the Achilles tendon and medial malleolus. This incision was made using a #15 blade. Dissection was carried down through subcutaneous and superficial fascia. Care was taken to identify adjacent neurovascular bundle. This was retracted anteriorly. Dissection was carried out to expose the flexor hallucis longus tendon sheath. The tendon sheath was retracted out of the operative field. The subtalar joint capsule was incised using #15 blade. Dissection was carried down to expose the os trigonum. This was sharply excised using a #15 blade and passed from the operative field be sent a specimen. Surrounding tissue appeared healthy and viable. No tenosynovitis surrounding the flexor hallucis longus tendon was visualized. The site was irrigated with copious amounts of sterile saline before attention was directed to closure. Deep tissue including subcuticular closure was closed using 2-0 Vicryl followed by skin closure with 4-0 nylon in horizontal mattress fashion. The tourniquet was let down and good hyperemic response was noted to all digits of the right foot. The incision site was dressed with Xeroform, 4 x 4 gauze, Kerlix, Lane. The patient tolerated the procedure and anesthesia well and without complication. The patient was transported from the operating room to the recovery room with vital signs stable and vascular status intact to all digits of the right foot. The patient was given both written and verbal instructions to remain nonweightbearing to the operative extremity, to keep dressings/splint clean, dry and intact and to take pain medication as directed. The patient will follow-up in the outpatient setting at their scheduled appointment. The patient was discharged with my personal number and was instructed to call if any questions or issues should arise. They were discharged home once anesthesia criteria was met.
--- NOTE | 2024-05-03 09:50 | ANE.PACU2 ---
Inpatient post-anesthesia follow up: Airway intact: Yes Vital signs: Temperature 97.2 F Pulse Rate 92 Respiratory Rate 18 Blood Pressure 115/72 Pulse Oximetry 95 Oxygen Delivery Me thod Room Air Oxygen Flow Rate 6 Fraction of Inspir ed Oxygen Hydration adequate: Yes Nausea and vomiting: Yes Pain level: 1 Mental status: Baseline
== END 2024-05-03 09:50 | disposition home or self-care (01) ==
PROVIDERS: Anesthesiology; PCP Nurse Practitioner Family; Visit Provider Podiatrist Foot & Ankle Surgery
PROC: (CPT 28120; principal; 2024-05-03 08:25)
DX: M25.872 Other specified joint disorders, left ankle and foot (principal); E66.01 Morbid (severe) obesity due to excess calories; Z68.42 Body mass index [BMI] 45.0-49.9, adult; Z79.899 Other long term (current) drug therapy; Z79.84 Long term (current) use of oral hypoglycemic drugs; Z79.890 Hormone replacement therapy; Z88.5 Allergy status to narcotic agent; Z88.1 Allergy status to other antibiotic agents; E88.819 Insulin resistance, unspecified; E03.9 Hypothyroidism, unspecified
CPT/HCPCS: 28120; 73600; 76000; 81025; 88307; 88311; J1100; J2250; J2704; J2795; J3010; J3490; J7030; J9999

== ENCOUNTER → 2024-05-19 10:03 | Outpatient (BNVA) | payer MEDICARE, SELFPAY | PROVIDERS: PCP Nurse Practitioner Family; Visit Provider Podiatrist Foot & Ankle Surgery | DX: M25.571 Pain in right ankle and joints of right foot (principal); S96.911A Strain of unspecified muscle and tendon at ankle and foot level, right foot, initial encounter; M76.821 Posterior tibial tendinitis, right leg; X58.XXXA Exposure to other specified factors, initial encounter | CPT/HCPCS: 99024 ==

== ENCOUNTER → 2024-05-31 13:56 | Outpatient (BNVA) | payer MEDICARE, SELFPAY | PROVIDERS: PCP Nurse Practitioner Family; Visit Provider Podiatrist Foot & Ankle Surgery | DX: Z48.89 Encounter for other specified surgical aftercare (principal) | CPT/HCPCS: 99024 ==

== ENCOUNTER → 2024-06-21 13:10 | Outpatient (BNVA) | payer MEDICARE, SELFPAY | PROVIDERS: PCP Nurse Practitioner Family; Visit Provider Podiatrist Foot & Ankle Surgery | DX: Z48.89 Encounter for other specified surgical aftercare (principal) | CPT/HCPCS: 99024 ==

== ENCOUNTER 2024-10-09 20:35 | Emergency (ER) | payer MEDICARE, SELFPAY ==
[2024-10-09 21:08] VITALS: BP 136/88; PULSE 77; RESP 17; TEMP 36.9; O2SAT 99; BMI 40.8
[2024-10-09 22:00] LABS: Hematocrit 38.5 % (36-47); Hemoglobin 13.00 g/dL (11.27-16.99); Mean Corpuscular HGB Conc 33.8 g/dL (30-55); Mean Corpuscular Hemoglobin 29.0 pg (27-33); Mean Corpuscular Volume 85.9 fl (85-98); Nucleated Red Blood Cells % 0 %; Platelet Count 371 10^3/cmm (157-399); Red Blood Count 4.48 10^6/uL (3.85-5.65); White Blood Count 9.10 10^3/uL (3.29-11.43)
--- NOTE | 2024-10-09 22:20 | CTR_ITS ---
PROCEDURE INFORMATION: Exam: CT Head Without Contrast Exam date and time: 10/09/2024 10:43 PM Age: 39 years old Clinical indication: Pain; Headache; C/O MARTINEZ; Additional info: Severe headache TECHNIQUE: Imaging protocol: Computed tomography of the head without contrast. Radiation optimization: All CT scans at this facility use at least one of these dose optimization techniques: automated exposure control; mA and/or kV adjustment per patient size (includes targeted exams where dose is matched to clinical indication); or iterative reconstruction. COMPARISON: CT head wo con* [id number] 10/26/2019 6:43 PM RADIATION DOSE METRICS: Total DLP (mGy-cm): 1030.88 FINDINGS: Brain: Normal. No hemorrhage. Unremarkable white matter. No mass effect. Cerebral ventricles: No ventriculomegaly. Paranasal sinuses: Visualized sinuses are unremarkable. No fluid levels. Mastoid air cells: Visualized mastoid air cells are well aerated. Bones: Unremarkable. No acute fracture. Soft tissues: Unremarkable. CT/CT head wo con* [id number] IMPRESSION: No acute intracranial abnormality.
[2024-10-09 22:21] LABS: Alanine Aminotransferase 15 U/L (0-33); Albumin Level 4.7 g/dL (3.5-5.2); Alkaline Phosphatase 98 U/L (35-105); Anion Gap 16.9 (5-19); Aspartate Amino Transferase 14 U/L (0-32); Blood Urea Nitrogen 11 mg/dL (6-20); Calcium 10.1 mg/dL (8.5-10.5); Carbon Dioxide 23 mmol/L (22-29); Chloride 102 mmol/L (98-107); Creatinine Clr Calc Pharmacy 103.2160; Globulin 3.2 g/dL (1.3-4.6); Glucose 92 mg/dL (65-115); Osmolality Calculated 285 mOsm/kg (285-295); Potassium 3.9 mmol/L (3.5-5.1); Sodium 138 mmol/L (136-145); Total Protein 7.9 g/dL (6.6-8.7)
[2024-10-09] MEDS: HYDROcodone-acetaminophen 5-325 mg Tablet 1 TAB PO (23:04)
[2024-10-09] MEDS: diphenhydrAMINE 50 mg/mL SDV 1mL IVP (23:04)
[2024-10-09] MEDS: metoclopramide 5 mg/mL SDV 2 mL 10 MG IVP (23:04)
--- NOTE | 2024-10-09 23:04 | W.ED.HA ---
Documented by User: NIXON Ospina 10/10/24 13:41 HPI - Headache General: Chief Complaint: Headache Stated Complaint: Sever headache, nauseated Time Seen by Provider: 10/09/24 21:49 Source: patient Mode of arrival: ambulatory Limitations: no limitations History of Present Illness: Patient is a 39-year-old female presents emerged part with plaint of headache for the past week. Reports history of tension headaches, states this feels much worse. Also states she thought she was getting a sinus faction but this also feels different and she is not having any congestion or rhinorrhea. Pain is worse with any movement of her head, stating she gets nauseous and dizzy when she moves her head and she has thrown up multiple times a day. She has been taking ibuprofen and Tylenol with no relief. Denies diagnosed history of migraines, she has never had any imaging of her head. Denies any head trauma. No neurological deficits reported. Vital stable at this time. She is currently rating her pain a 10/10. MD elicited complaint: headache Onset (ago): day(s) Onset description: gradually Location: diffuse and down into neck Severity: severe Pain scale (0-10): 10 Exacerbating factors: movement of head/neck Associated symptoms: Reports nausea and vomiting; Deny chest pain, confusion, fever(s), lightheadedness or rash Related Data Home Medications ?Medication ?Instructions ?Recorded ?Confirmed levothyroxine 200 mcg tablet 200 mcg PO QAM 08/16/20 06/21/24 lamotrigine 200 mg tablet 200 mg PO BID 10/23/20 06/21/24 (Lamictal) cariprazine 4.5 mg capsule 4.5 mg PO QAM 04/05/22 06/21/24 (Vraylar) metformin 1,000 mg tablet 1,000 mg PO BID 04/05/22 06/21/24 Previous Rx's ?Medication ?Instructions ?Recorded cyclobenzaprine 10 mg tablet 10 mg PO Q12H #14 tabs 05/03/24 hydrocodone 5 mg-acetaminophen 325 1 tab PO Q6H PRN pain #28 tabs 05/03/24 mg tablet clindamycin HCl 300 mg capsule 300 mg PO TID #21 caps 05/19/24 methylprednisolone 4 mg tablets in See Rx Instructions PO PER PKG DIR 05/31/24 a dose pack (Medrol (Ryan)) #21 ea cyclobenzaprine 5 mg tablet 5 mg PO Q8H #10 tabs 10/10/24 ketorolac 10 mg tablet 10 mg PO Q8H PRN pain #15 tabs 10/10/24 metoclopramide HCl 10 mg tablet 10 mg PO Q6H PRN nausea and 10/10/24 vomiting #20 tabs Allergies Allergy/AdvReac Type Severity Reaction Status Date / Time vancomycin Allergy Unknown Red francois Verified 06/21/24 12:29 syndrome cefaclor (From Ceclor) Allergy Rash as an Verified 06/21/24 12:29 -can take amoxicillin morphine Allergy ALGY-Rash Verified 06/21/24 12:29 Review of Systems General: Reports: 10 or more systems reviewed and unremarkable except in HPI and below Const: Denies: fever(s), chills or fatigue Eyes: Denies: change in vision ENMT: Denies: throat pain, ear or mastoid pain or nasal discharge Card: Denies: chest pain, palpitations, swelling of feet/ankles or lightheadedness Resp: Denies: dyspnea, productive cough or wheezing GI: Reports: nausea and vomiting; Denies: abdominal pain, diarrhea or constipation : Denies: flank pain, difficulty voiding, dysuria or urinary frequency Musc: Reports: neck pain; Denies: back pain or joint pain Skin/Breast: Denies: rash Neuro: Reports: headache(s) and dizziness; Denies: numbness in extremities, weakness in extremities, confusion, Slurred speech present or seizure-like activity PFS ED PFSH: Medical History Insulin resistance Diagnosed with insulin resistance at the age of 17 or 18 and states that she takes Metformin for this. No pertinent past medical history Denies diabetes, asthma, hypertension, seizures, DVT/PE PCP: NEEL Evangelista Hypothyroidism Diagnosed at the age of 13 and is controlled by her primary care provider and medication. Does not have an lime mixer. Major depressive disorder, recurrent severe without psychotic features Diagnosed with bipolar disorder at the age of 13 and is on medication managed by [facility]. She sees a therapist once a week and the nurse practitioner at [facility] every 4 to 6 weeks. Surgical History History of laparoscopy (~05/22/22) Laparoscopic retrieval of intra-abdominal/pelvic IUD;performed by Dr. Noriega at [facility]. Status post tubal ligation 2016 at time of second [place] [facility] [place] of carpal tunnel surgery Left hand in 2010 and right wrist in February [address] Almonte. H/O esophagogastroduodenoscopy (11/08/19) History of cholecystectomy Laparoscopic procedure in 2012 History of x 2 2014 and . Family History Grandmother Breast cancer maternal, diagnosed in her late 70s Heart disease maternal Hypertension maternal Grandfather Diabetes paternal Heart disease maternal and paternal Brother Heart disease Mother Hypertension Denies family history of Colon cancer Ovarian cancer Hyperlipidemia Uterine cancer Thyroid disease Stroke Social History Smoking and tobacco/nicotine status: never used tobacco/nicotine Alcohol intake: current Alcohol intake frequency: holidays/special occasions only Substance/Drug Use: never Physical Exam Const: COMMON NORMALS: patient oriented x3 and no limitations GENERAL APPEARANCE: cooperative and well developed ORIENTATION/CONSCIOUSNESS: Yes awake, Yes oriented to person, Yes oriented to place and Yes oriented to time OTHER: Appears uncomfortable secondary to headache HENMT: COMMON NORMALS: normocephalic, atraumatic and hearing grossly normal bilaterally HEAD & SCALP: normocephalic and atraumatic Eye: COMMON NORMALS: Equal, round and reactive pupils present, EOMs intact bilaterally and conjunctivae normal CONJUNCTIVA: Yes conjunctivae normal PUPIL: Yes Equal, round and reactive pupils present Neck/C-Spine: COMMON NORMALS: full ROM, supple and no JVD Resp: COMMON NORMALS: normal respiratory effort, No retractions, No use of accessory muscles and clear to auscultation bilaterally AUSCULTATION: clear to auscultation bilaterally Cardio: COMMON NORMALS: no JVD, regular rate, regular rhythm, No clicks present (Cardio), No murmurs present (Cardio) and No rub (Cardio) RATE: regular rate RHYTHM: regular rhythm Extremity: COMMON NORMALS: normal to inspection, full ROM and capillary refill normal Neuro: COMMON NORMALS: patient oriented x3, CN's II-XII intact bilaterally, moves all extremities, no focal motor deficits and no sensory deficits noted SENSORIUM/ORIENTATION: Yes oriented to person, Yes oriented to place and Yes oriented to time Skin: COMMON NORMALS: no rashes or lesions noted GENERAL SKIN EXAM: no rashes or lesions noted Course Vital Signs: Vital signs: Vital Signs Temperature 98.4 F 10/09/24 21:08 Pulse Rate 77 10/10/24 00:14 Respiratory Rate 17 10/10/24 00:14 Blood Pressure 132/71 10/10/24 00:14 Pulse Oximetry 97 10/10/24 00:14 Oxygen Delivery Me thod Room Air 10/09/24 21:08 MDM - Headache Medical Decision Making Patient present with a headache going on for a week, reports history of tension headache stating this felt different. Also states she is having worsening nausea and vomiting, denies history of migraine headaches. Head CT was unremarkable, labs were normal including normal electrolytes. She notes a good amount of relief after migraine cocktail here, I feel strongly that this is tension related however and we will target therapy towards that, and have her return with any new or worsening. Med sent to pharmacy. Lab Data 10/09/24 21:54 10/09/24 21:[address] 10/09/24 22:20 IMPRESSION: No acute intracranial abnormality. Laboratory Results WBC 9.10 10^3/uL (3.29-11.43) 10/09/24 21:54 RBC 4.48 10^6/uL (3.85-5.65) 10/09/24 21:54 Hgb 13.00 g/dL (11.27-16.99) 10/09/24 21:54 Hct 38.5 % (36-47) 10/09/24 21:54 MCV 85.9 fl (85-98) 10/09/24 21:54 MCH 29.0 pg (27-33) 10/09/24 21:54 MCHC 33.8 g/dL (30-55) 10/09/24 21:54 RDW 12.9 % (12.1-15.1) 10/09/24 21:54 Plt Count 371 10^3/cmm (157-399) 10/09/24 21:54 MPV 10.7 fL (7.4-10.4) H 10/09/24 21:54 Neut % (Auto) 43.5 % 10/09/24 21:54 Lymph % (Auto) 42.7 % 10/09/24 21:54 [place] % (Auto) 8.8 % 10/09/24 21:54 Eos % (Auto) 3.7 % 10/09/24 21:54 Baso % (Auto) 1.1 % 10/09/24 21:54 Neut # (Auto) 3.95 10^3/uL (1.8-7.7) 10/09/24 21:54 Lymph # (Auto) 3.9 10^3/uL (0.8-4.8) 10/09/24 21:54 [place] # (Auto) 0.8 10^3/uL (0.2-0.9) 10/09/24 21:54 Eos # (Auto) 0.3 10^3/uL (0.0-0.8) 10/09/24 21:54 Baso # (Auto) 0.1 10^3/uL (0.0-0.1) 10/09/24 21:54 Nucleated RBC % (auto) 0 % 10/09/24 21:54 Nucleated RBCs # 0.0 /100WBC 10/09/24 21:54 Sodium 138 mmol/L (136-145) 10/09/24 21:54 Potassium 3.9 mmol/L (3.5-5.1) 10/09/24 21:54 Chloride 102 mmol/L (98-107) 10/09/24 21:54 Carbon Dioxide 23 mmol/L (22-29) 10/09/24 21:54 Anion Gap 16.9 (5-19) 10/09/24 21:54 BUN 11 mg/dL (6-20) 10/09/24 21:54 Creatinine 0.8 mg/dL (0.5-0.9) 10/09/24 21:54 GFR Calculation 80.7 mL/min (90-130) L 10/09/24 21:54 Glucose 92 mg/dL (65-115) 10/09/24 21:54 Calculated Osmolality 285 mOsm/kg (285-295) 10/09/24 21:54 Calcium 10.1 mg/dL (8.5-10.5) 10/09/24 21:54 Total Bilirubin 0.9 mg/dL (0.15-1.2) 10/09/24 21:54 AST 14 U/L (0-32) 10/09/24 21:54 ALT 15 U/L (0-33) 10/09/24 21:54 Alkaline Phosphatase 98 U/L (35-105) 10/09/24 21:54 Total Protein 7.9 g/dL (6.6-8.7) 10/09/24 21:54 Albumin 4.7 g/dL (3.5-5.2) 10/09/24 21:54 Globulin 3.2 g/dL (1.3-4.6) 10/09/24 21:54 Urine Color Dark yellow (Yellow) A 10/09/24 23:50 Urine Appearance Turbid (CLEAR) A 10/09/24 23:50 Urine pH 6.0 (5-7) 10/09/24 23:50 Ur Specific [place] 1.047 (1.005-1.030) H 10/09/24 23:50 Urine Protein 2+ (Negative) A 10/09/24 23:50 Urine Glucose (UA) Negative (Normal) 10/09/24 23:50 Urine Ketones 1+ (Negative) H 10/09/24 23:50 Urine Blood Negative (Negative) 10/09/24 23:50 Urine Nitrate Negative (Negative) 10/09/24 23:50 Urine Bilirubin 1+ (Negative) H 10/09/24 23:50 Urine Urobilinogen 1.0 mg/dL (Negative) 10/09/24 23:50 Ur Leukocyte Esterase 1+ (Negative) A 10/09/24 23:50 Urine RBC 3-5 /hpf (0-2) 10/09/24 23:50 Urine WBC 0-5 /hpf (0-5) 10/09/24 23:50 Ur Squamous Epith Cells 15-25 /hpf (0-5) H 10/09/24 23:50 Calcium Oxalate Crystal >100 /hpf H 10/09/24 23:50 Amorphous Sediment Not Reportable 10/09/24 23:50 Urine Bacteria 1+ /hpf (NONE) H 10/09/24 23:50 All radiology interpretation(s) finalized by discharge Discharge Plan Discharge Patient Disposition: Home Clinical Impression: Tension headache Condition: Stable Prescriptions: New ketorolac 10 mg tablet 10 mg PO Q8H PRN (Reason: pain) Qty: 15 0RF metoclopramide HCl 10 mg tablet 10 mg PO Q6H PRN (Reason: nausea and vomiting) Qty: 20 0RF cyclobenzaprine 5 mg tablet 5 mg PO Q8H Qty: 10 0RF No Action clindamycin HCl 300 mg capsule 300 mg PO TID Qty: 21 0RF methylprednisolone [Medrol (Ryan)] 4 mg tablets,dose pack See Rx Instructions PO PER PKG DIR Qty: 21 0RF Rx Instructions: PO PER PKG DIR levothyroxine 200 mcg tablet 200 mcg PO QAM lamotrigine [Lamictal] 200 mg tablet 200 mg PO BID metformin 1,000 mg tablet 1,000 mg PO BID Vraylar 4.5 mg capsule 4.5 mg PO QAM hydrocodone-acetaminophen 5-325 mg tablet 1 tab PO Q6H PRN (Reason: pain) Qty: 28 0RF cyclobenzaprine 10 mg tablet 10 mg PO Q12H Qty: 14 0RF Discharge Orders: Discharge ED (Routine); Ordered 10/10/24 Ordered By: Rich Lyons Referrals: Jenna Dean FNP [Primary Care Provider, Unknown] Patient Instructions: Patient Portal & Nhung Instructions Activity Restrictions/Additional Instructions: Discharge Instructions: Tension Headache Diagnosis and Hospital Course: 39-year-old female diagnosed with tension-type headache (TTH) following normal head CT and laboratory workup. Treated acutely with a migraine cocktail (NSAID, antiemetic, muscle relaxant) with symptomatic improvement. Discharged with cyclobenzaprine 5 mg, ketorolac 10 mg, and metoclopramide 10 mg. --- Home Management of Tension-Type Headache (TTH): - Medication Instructions: - Cyclobenzaprine 5 mg: Take as prescribed for muscle relaxation. Use caution with activities requiring alertness. - Ketorolac (Toradol) 10 mg: Take as directed for pain relief. Limit use to the shortest duration necessary due to risk of GI, renal, and cardiovascular adverse effects. - Metoclopramide 10 mg: Use for associated nausea or as directed. - First-line acute treatment: - Nonsteroidal anti-inflammatory drugs (NSAIDs, e.g., ibuprofen 400 mg) and acetaminophen 1000 mg are supported as first-line agents for acute TTH episodes. Lower doses of acetaminophen are less effective. - Triptans are not effective for TTH unless comorbid migraine is present. - Nonpharmacologic strategies: - Physical therapy, specifically manual therapy, may modestly reduce headache frequency. - Cognitive behavioral therapy and biofeedback are recommended for frequent or disabling TTH. - Acupuncture and trigger point injections may be considered in refractory cases. - Prevention: - For frequent (>=0 attacks/month) or chronic TTH, tricyclic antidepressants (e.g., amitriptyline 10?25 mg nightly) are first-line for prevention. - OnabotulinumtoxinA is not effective for TTH. --- Information About Migraine Headaches: - Migraine features: - Typically unilateral, throbbing/pulsating, moderate to severe intensity, aggravated by activity, and often associated with nausea, vomiting, photophobia, or phonophobia. - Migraine is more disabling than TTH and affects 12% of the population. - Acute migraine treatment: - NSAIDs, acetaminophen, and triptans are first-line for moderate to severe attacks. - Triptans should be avoided in patients with cardiovascular risk factors. - Antiemetics (e.g., metoclopramide) are useful for associated nausea. - Opioids and butalbital-containing medications are not recommended due to risk of medication overuse headache and abuse. - Prevention and lifestyle: - Preventive medications may be considered for frequent or disabling migraine (e.g., beta-blockers, tricyclics, antiepileptics, CGRP monoclonal antibodies). - Lifestyle modifications: maintain hydration, regular meals, consistent sleep, regular aerobic exercise, stress management, and avoidance of known triggers (e.g., certain foods, sleep deprivation). --- Return Precautions: - Seek immediate medical attention for: - Sudden, severe ( worst ever ) headache - New focal neurological deficits (weakness, vision changes, speech difficulty) - Fever, neck stiffness, or altered mental status - Headache onset after age 50, or in the context of cancer or immunosuppression - Headache provoked by physical activity or postural changes - Return for evaluation if: - Headaches become more frequent, severe, or refractory to home management - Medication overuse is suspected (headache >=5 days/month with regular use of acute medications) - Adverse effects from prescribed medications occur --- Additional Notes: - Limit use of acute medications to avoid medication overuse headache. - Follow up with primary care or neurology for consideration of preventive therapy if headaches are frequent or disabling. - Education regarding headache triggers and self-management is essential for long-term control. Print Language: Luxembourger Coding Level of Care Code ED Well Reactivator Operator for Chg Fwd Documented by User: Apolinar De Jesus, DO 10/10/24 15:23 HPI - Headache General: Chief Complaint: Headache Stated Complaint: Sever headache, nauseated Time Seen by Provider: 10/09/24 21:49 Related Data Home Medications ?Medication ?Instructions ?Recorded ?Confirmed levothyroxine 200 mcg tablet 200 mcg PO QAM 08/16/20 06/21/24 lamotrigine 200 mg tablet 200 mg PO BID 10/23/20 06/21/24 (Lamictal) cariprazine 4.5 mg capsule 4.5 mg PO QAM 04/05/22 06/21/24 (Vraylar) metformin 1,000 mg tablet 1,000 mg PO BID 04/05/22 06/21/24 Previous Rx's ?Medication ?Instructions ?Recorded cyclobenzaprine 10 mg tablet 10 mg PO Q12H #14 tabs 05/03/24 hydrocodone 5 mg-acetaminophen 325 1 tab PO Q6H PRN pain #28 tabs 05/03/24 mg tablet clindamycin HCl 300 mg capsule 300 mg PO TID #21 caps 05/19/24 methylprednisolone 4 mg tablets in See Rx Instructions PO PER PKG DIR 05/31/24 a dose pack (Medrol (Ryan)) #21 ea cyclobenzaprine 5 mg tablet 5 mg PO Q8H #10 tabs 10/10/24 ketorolac 10 mg tablet 10 mg PO Q8H PRN pain #15 tabs 10/10/24 metoclopramide HCl 10 mg tablet 10 mg PO Q6H PRN nausea and 10/10/24 vomiting #20 tabs Allergies Allergy/AdvReac Type Severity Reaction Status Date / Time vancomycin Allergy Unknown Red francois Verified 06/21/24 12:29 syndrome cefaclor (From Ceclor) Allergy Rash as an Verified 06/21/24 12:29 infant-can take amoxicillin morphine Allergy ALGY-Rash Verified 06/21/24 12:29 [facility] ED PFS: Medical History Insulin resistance Diagnosed with insulin resistance at the age of 17 or 18 and states that she takes Metformin for this. No pertinent past medical history Denies diabetes, asthma, hypertension, seizures, DVT/PE PCP: NEEL Evangelista Hypothyroidism Diagnosed at the age of 13 and is controlled by her primary care provider and medication. Does not have an lime mixer. Major depressive disorder, recurrent severe without psychotic features Diagnosed with bipolar disorder at the age of 13 and is on medication managed by [facility]. She sees a therapist once a week and the nurse practitioner at [facility] every 4 to 6 weeks. Surgical History History of laparoscopy (~05/22/22) Laparoscopic retrieval of intra-abdominal/pelvic IUD;performed by Dr. Noriega at [facility]. Status post tubal ligation 2015 at time of second [place] [facility] [place] of carpal tunnel surgery Left hand in 2010 and right wrist in February [address] Almonte. H/O esophagogastroduodenoscopy (11/08/19) History of cholecystectomy Laparoscopic procedure in 2012 History of x 2 2014 and . Family History Grandmother Breast cancer maternal, diagnosed in her late 70s Heart disease maternal Hypertension maternal Grandfather Diabetes paternal Heart disease maternal and paternal Brother Heart disease Mother Hypertension Denies family history of Colon cancer Ovarian cancer Hyperlipidemia Uterine cancer Thyroid disease Stroke Social History Smoking and tobacco/nicotine status: never used tobacco/nicotine Alcohol intake: current Alcohol intake frequency: holidays/special occasions only Substance/Drug Use: never Course Vital Signs: Vital signs: Vital Signs Temperature 98.4 F 10/09/24 21:08 Pulse Rate 77 10/10/24 00:14 Respiratory Rate 17 10/10/24 00:14 Blood Pressure 132/71 08/17/25 00:14 Pulse Oximetry 97 10/10/24 00:14 Oxygen Delivery Me thod Room Air 10/09/24 21:08 MDM - Headache Medical Decision Making Patient present with a headache going on for a week, reports history of tension headache stating this felt different. Also states she is having worsening nausea and vomiting, denies history of migraine headaches. Head CT was unremarkable, labs were normal including normal electrolytes. She notes a good amount of relief after migraine cocktail here, I feel strongly that this is tension related however and we will target therapy towards that, and have her return with any new or worsening. Med sent to pharmacy. This patient was originally seen by Mr. Serena PA-C. I agree with his history, evaluation and managmeent. Lab Data 10/09/24 21:54 10/09/24 21:[address] 10/09/24 22:20 IMPRESSION: No acute intracranial abnormality. Laboratory Results WBC 9.10 10^3/uL (3.29-11.43) 10/09/24 21:54 RBC 4.48 10^6/uL (3.85-5.65) 10/09/24 21:54 Hgb 13.00 g/dL (11.27-16.99) 10/09/24 21:54 Hct 38.5 % (36-47) 10/09/24 21:54 MCV 85.9 fl (85-98) 10/09/24 21:54 MCH 29.0 pg (27-33) 10/09/24 21:54 MCHC 33.8 g/dL (30-55) 10/09/24 21:54 RDW 12.9 % (12.1-15.1) 10/09/24 21:54 Plt Count 371 10^3/cmm (157-399) 10/09/24 21:54 MPV 10.7 fL (7.4-10.4) H 10/09/24 21:54 Neut % (Auto) 43.5 % 10/09/24 21:54 Lymph % (Auto) 42.7 % 10/09/24 21:54 [place] % (Auto) 8.8 % 10/09/24 21:54 Eos % (Auto) 3.7 % 10/09/24 21:54 Baso % (Auto) 1.1 % 10/09/24 21:54 Neut # (Auto) 3.95 10^3/uL (1.8-7.7) 10/09/24 21:54 Lymph # (Auto) 3.9 10^3/uL (0.8-4.8) 10/09/24 21:54 [place] # (Auto) 0.8 10^3/uL (0.2-0.9) 10/09/24 21:54 Eos # (Auto) 0.3 10^3/uL (0.0-0.8) 10/09/24 21:54 Baso # (Auto) 0.1 10^3/uL (0.0-0.1) 10/09/24 21:54 Nucleated RBC % (auto) 0 % 10/09/24 21:54 Nucleated RBCs # 0.0 /100WBC 10/09/24 21:54 Sodium 138 mmol/L (136-145) 10/09/24 21:54 Potassium 3.9 mmol/L (3.5-5.1) 10/09/24 21:54 Chloride 102 mmol/L (98-107) 10/09/24 21:54 Carbon Dioxide 23 mmol/L (22-29) 10/09/24 21:54 Anion Gap 16.9 (5-19) 10/09/24 21:54 BUN 11 mg/dL (6-20) 10/09/24 21:54 Creatinine 0.8 mg/dL (0.5-0.9) 10/09/24 21:54 GFR Calculation 80.7 mL/min (90-130) L 10/09/24 21:54 Glucose 92 mg/dL (65-115) 10/09/24 21:54 Calculated Osmolality 285 mOsm/kg (285-295) 10/09/24 21:54 Calcium 10.1 mg/dL (8.5-10.5) 10/09/24 21:54 Total Bilirubin 0.9 mg/dL (0.15-1.2) 10/09/24 21:54 AST 14 U/L (0-32) 10/09/24 21:54 ALT 15 U/L (0-33) 10/09/24 21:54 Alkaline Phosphatase 98 U/L (35-105) 10/09/24 21:54 Total Protein 7.9 g/dL (6.6-8.7) 10/09/24 21:54 Albumin 4.7 g/dL (3.5-5.2) 10/09/24 21:54 Globulin 3.2 g/dL (1.3-4.6) 10/09/24 21:54 Urine Color Dark yellow (Yellow) A 10/09/24 23:50 Urine Appearance Turbid (CLEAR) A 10/09/24 23:50 Urine pH 6.0 (5-7) 10/09/24 23:50 Ur Specific [place] 1.047 (1.005-1.030) H 10/09/24 23:50 Urine Protein 2+ (Negative) A 10/09/24 23:50 Urine Glucose (UA) Negative (Normal) 10/09/24 23:50 Urine Ketones 1+ (Negative) H 10/09/24 23:50 Urine Blood Negative (Negative) 10/09/24 23:50 Urine Nitrate Negative (Negative) 10/09/24 23:50 Urine Bilirubin 1+ (Negative) H 10/09/24 23:50 Urine Urobilinogen 1.0 mg/dL (Negative) 10/09/24 23:50 Ur Leukocyte Esterase 1+ (Negative) A 10/09/24 23:50 Urine RBC 3-5 /hpf (0-2) 10/09/24 23:50 Urine WBC 0-5 /hpf (0-5) 10/09/24 23:50 Ur Squamous Epith Cells 15-25 /hpf (0-5) H 10/09/24 23:50 Calcium Oxalate Crystal >100 /hpf H 10/09/24 23:50 Amorphous Sediment Not Reportable 10/09/24 23:50 Urine Bacteria 1+ /hpf (NONE) H 10/09/24 23:50 Discharge Plan Discharge Patient Disposition: Home Clinical Impression: Tension headache Condition: Stable Prescriptions: New ketorolac 10 mg tablet 10 mg PO Q8H PRN (Reason: pain) Qty: 15 0RF metoclopramide HCl 10 mg tablet 10 mg PO Q6H PRN (Reason: nausea and vomiting) Qty: 20 0RF cyclobenzaprine 5 mg tablet 5 mg PO Q8H Qty: 10 0RF No Action clindamycin HCl 300 mg capsule 300 mg PO TID Qty: 21 0RF methylprednisolone [Medrol (Ryan)] 4 mg tablets,dose pack See Rx Instructions PO PER PKG DIR Qty: 21 0RF Rx Instructions: PO PER PKG DIR levothyroxine 200 mcg tablet 200 mcg PO QAM lamotrigine [Lamictal] 200 mg tablet 200 mg PO BID metformin 1,000 mg tablet 1,000 mg PO BID Vraylar 4.5 mg capsule 4.5 mg PO QAM hydrocodone-acetaminophen 5-325 mg tablet 1 tab PO Q6H PRN (Reason: pain) Qty: 28 0RF cyclobenzaprine 10 mg tablet 10 mg PO Q12H Qty: 14 0RF Discharge Orders: Discharge ED (Routine); Ordered 10/10/24 Ordered By: Rich Lyons Referrals: Jenna Dean FNP [Primary Care Provider, Unknown] Patient Instructions: Patient Portal & Nhung Instructions Activity Restrictions/Additional Instructions: Discharge Instructions: Tension Headache Diagnosis and Hospital Course: 39-year-old female diagnosed with tension-type headache (TTH) following normal head CT and laboratory workup. Treated acutely with a migraine cocktail (NSAID, antiemetic, muscle relaxant) with symptomatic improvement. Discharged with cyclobenzaprine 5 mg, ketorolac 10 mg, and metoclopramide 10 mg. --- Home Management of Tension-Type Headache (TTH): - Medication Instructions: - Cyclobenzaprine 5 mg: Take as prescribed for muscle relaxation. Use caution with activities requiring alertness. - Ketorolac (Toradol) 10 mg: Take as directed for pain relief. Limit use to the shortest duration necessary due to risk of GI, renal, and cardiovascular adverse effects. - Metoclopramide 10 mg: Use for associated nausea or as directed. - First-line acute treatment: - Nonsteroidal anti-inflammatory drugs (NSAIDs, e.g., ibuprofen 400 mg) and acetaminophen 1000 mg are supported as first-line agents for acute TTH episodes. Lower doses of acetaminophen are less effective. - Triptans are not effective for TTH unless comorbid migraine is present. - Nonpharmacologic strategies: - Physical therapy, specifically manual therapy, may modestly reduce headache frequency. - Cognitive behavioral therapy and biofeedback are recommended for frequent or disabling TTH. - Acupuncture and trigger point injections may be considered in refractory cases. - Prevention: - For frequent (>=0 attacks/month) or chronic TTH, tricyclic antidepressants (e.g., amitriptyline 10?25 mg nightly) are first-line for prevention. - OnabotulinumtoxinA is not effective for TTH. --- Information About Migraine Headaches: - Migraine features: - Typically unilateral, throbbing/pulsating, moderate to severe intensity, aggravated by activity, and often associated with nausea, vomiting, photophobia, or phonophobia. - Migraine is more disabling than TTH and affects 12% of the population. - Acute migraine treatment: - NSAIDs, acetaminophen, and triptans are first-line for moderate to severe attacks. - Triptans should be avoided in patients with cardiovascular risk factors. - Antiemetics (e.g., metoclopramide) are useful for associated nausea. - Opioids and butalbital-containing medications are not recommended due to risk of medication overuse headache and abuse. - Prevention and lifestyle: - Preventive medications may be considered for frequent or disabling migraine (e.g., beta-blockers, tricyclics, antiepileptics, CGRP monoclonal antibodies). - Lifestyle modifications: maintain hydration, regular meals, consistent sleep, regular aerobic exercise, stress management, and avoidance of known triggers (e.g., certain foods, sleep deprivation). --- Return Precautions: - Seek immediate medical attention for: - Sudden, severe ( worst ever ) headache - New focal neurological deficits (weakness, vision changes, speech difficulty) - Fever, neck stiffness, or altered mental status - Headache onset after age 50, or in the context of cancer or immunosuppression - Headache provoked by physical activity or postural changes - Return for evaluation if: - Headaches become more frequent, severe, or refractory to home management - Medication overuse is suspected (headache >=5 days/month with regular use of acute medications) - Adverse effects from prescribed medications occur --- Additional Notes: - Limit use of acute medications to avoid medication overuse headache. - Follow up with primary care or neurology for consideration of preventive therapy if headaches are frequent or disabling. - Education regarding headache triggers and self-management is essential for long-term control. Print Language: Luxembourger Coding Level of Care Code ED Well Reactivator Operator for Milka Ramachandran
[2024-10-10 00:07] LABS: Glucose Urine UA Negative (Normal); Nitrate Urine Negative (Negative)
[2024-10-10 00:14] VITALS: BP 132/71; PULSE 77; RESP 17; O2SAT 97
[2024-10-10 00:39] LABS: Specific Gravity, Urine 1.047 (1.005-1.030); UA Manual Slide Review YES; UA Slide Review UA Slide Review Perf
[2024-10-10 00:40] LABS: Add Urine Microscopic? YES
== END 2024-10-10 00:15 | disposition home or self-care (01) ==
PROVIDERS: Emergency Medicine; Emergency Provider Physician Assistant; PCP Nurse Practitioner Family
DX: G44.209 Tension-type headache, unspecified, not intractable (principal); Z79.84 Long term (current) use of oral hypoglycemic drugs
CPT/HCPCS: 70450; 80053; 81001; 85025; 96374; 96375; 99285; J1100; J1200; J1885; J2765; J7030; J9999

== ENCOUNTER 2024-10-14 11:27 | Emergency (ER) | payer MEDICARE, SELFPAY ==
[2024-10-14 11:40] VITALS: BP 122/88; PULSE 89; RESP 17; TEMP 36.9; O2SAT 100; BMI 40.8
--- NOTE | 2024-10-14 12:46 | XRR_ITS ---
PROCEDURE INFORMATION: Exam: XR Left Hip Exam date and time: 10/14/2024 1:08 PM Age: 39 years old Clinical indication: Hip pain; Left hip; Additional info: . Severe lower back pain on left side. No trauma TECHNIQUE: Imaging protocol: Radiologic exam of the left hip. Views: 2 or 3 views hip with pelvis when performed. COMPARISON: CT abdomen pelvis wo con [id number] 04/06/2021 22:36 FINDINGS: Bones/joints: Bony cortical margins and articulations appear to be intact and in the range of normal. There are no discrete linear areas of decreased density seen as might indicate the presence of the fracture. Trabecular architecture appears to be preserved. No acute fracture. Bowel-gas debris obscure lumbosacral detail. Soft tissues: Overlying soft tissues prominent and do somewhat challenged resolution due to diminished penetration. XR/XR hip LT 2-3V wo/w pel* [id number] IMPRESSION: No acute osseous plain-film findings.
[2024-10-14] MEDS: orphenadrine 30 mg/mL Inj 2 mL 60 MG IM (13:34)
--- NOTE | 2024-10-14 15:17 | W.ED.EXTPRO ---
HPI - Extremity Problem General: Chief complaint: Extremity Injury, Lower Stated complaint: L Hip pain Time Seen by Provider: 10/14/24 12:46 Source: patient Mode of arrival: ambulatory Limitations: no limitations History of Present Illness: Patient is a 39-year-old female who presents the emergency department for the second time in a week for complaints of now left hip pain, beginning a day ago. She states that she tripped up the stairs and this hurt her left hip, she is having severe pain in the left low back and left hip radiating down her left leg that will not go away. Reports a history of sciatica but states this feels much worse. Has been taking igpn-log-yliydbo medication as well as Toradol that was recently prescribed to her, states this has not been helping. Has been ambulatory, no trauma directly to the back. No loss of bowel or bladder function. No saddle anesthesia. No history of cancer, IV drug use, or chronic steroid use. She states that she has a primary care provider but is not set to see them until October. She did not hit her head with the fall. MD Complaint: joint pain Onset (ago): day(s) Pain Consistency: constant Location: left and lower extremity (hip) Radiation: distal Exacerbating factors: range of motion, weight bearing and walking Associated symptoms: Deny chest pain, fever(s) or rash Related Data Home Medications ?Medication ?Instructions ?Recorded ?Confirmed levothyroxine 200 mcg tablet 200 mcg PO QAM 08/16/20 06/21/24 lamotrigine 200 mg tablet 200 mg PO BID 10/23/20 06/21/24 (Lamictal) cariprazine 4.5 mg capsule 4.5 mg PO QAM 04/05/22 06/21/24 (Vraylar) metformin 1,000 mg tablet 1,000 mg PO BID 04/05/22 06/21/24 Previous Rx's ?Medication ?Instructions ?Recorded cyclobenzaprine 10 mg tablet 10 mg PO Q12H #14 tabs 05/03/24 hydrocodone 5 mg-acetaminophen 325 1 tab PO Q6H PRN pain #28 tabs 05/03/24 mg tablet clindamycin HCl 300 mg capsule 300 mg PO TID #21 caps 05/19/24 methylprednisolone 4 mg tablets in See Rx Instructions PO PER PKG DIR 04/07/25 a dose pack (Medrol (Ryan)) #21 ea cyclobenzaprine 5 mg tablet 5 mg PO Q8H #10 tabs 10/10/24 ketorolac 10 mg tablet 10 mg PO Q8H PRN pain #15 tabs 10/10/24 metoclopramide HCl 10 mg tablet 10 mg PO Q6H PRN nausea and 10/10/24 vomiting #20 tabs Allergies Allergy/AdvReac Type Severity Reaction Status Date / Time vancomycin Allergy Unknown Red francois Verified 06/21/24 12:29 syndrome cefaclor (From [facility]) Allergy Rash as an Verified 06/21/24 12:29 infant-can take amoxicillin morphine Allergy ALGY-Rash Verified 06/21/24 12:29 Review of Systems General: Reports: 10 or more systems reviewed and unremarkable except in HPI and below Const: Reports: other (denies trauma); Denies: fever(s), change in weight or night sweats Card: Denies: chest pain, lightheadedness or syncope Resp: Denies: dyspnea GI: Denies: abdominal pain or fecal incontinence : Denies: urinary incontinence Musc: Reports: back pain and joint pain (left hip); Denies: neck pain or extremity pain Skin/Breast: Denies: rash or skin pain Neuro: Denies: headache(s), numbness in extremities, weakness in extremities, sensory changes, lack of coordination, difficulty walking, frequent falls or involuntary movements PFSH ED PFSH: Medical History Insulin resistance Diagnosed with insulin resistance at the age of 17 or 18 and states that she takes Metformin for this. No pertinent past medical history Denies diabetes, asthma, hypertension, seizures, DVT/PE PCP: NEEL Evangelista Hypothyroidism Diagnosed at the age of 13 and is controlled by her primary care provider and medication. Does not have an language arts teacher. Major depressive disorder, recurrent severe without psychotic features Diagnosed with bipolar disorder at the age of 13 and is on medication managed by [facility]. She sees a therapist once a week and the nurse practitioner at [facility] every 4 to 6 weeks. Surgical History History of laparoscopy (~05/22/22) Laparoscopic retrieval of intra-abdominal/pelvic IUD;performed by Dr. Noriega at [facility]. Status post tubal ligation 2016 at time of second performed by Dr. Becker at [facility] History of carpal tunnel surgery Left hand in 2010 and right wrist in February [address] Almonte. H/O esophagogastroduodenoscopy (11/08/19) History of cholecystectomy Laparoscopic procedure in 2012 History of x 2 2014 and . Family History Grandmother Breast cancer maternal, diagnosed in her late 70s Heart disease maternal Hypertension maternal Grandfather Diabetes paternal Heart disease maternal and paternal Brother Heart disease Mother Hypertension Denies family history of Colon cancer Ovarian cancer Hyperlipidemia Uterine cancer Thyroid disease Stroke Social History Smoking and tobacco/nicotine status: never used tobacco/nicotine Alcohol intake: current Alcohol intake frequency: holidays/special occasions only Substance/Drug Use: never Physical Exam Const: COMMON NORMALS: patient oriented x3 and alert NUTRITIONAL APPEARANCE: obese morbidly obese ORIENTATION/CONSCIOUSNESS: Yes awake OTHER: Ambulatory, mild antalgic gait HENMT: COMMON NORMALS: normocephalic and atraumatic HEAD & SCALP: normocephalic and atraumatic Neck/C-Spine: COMMON NORMALS: full ROM, supple and no meningeal signs Resp: COMMON NORMALS: normal respiratory effort, No use of accessory muscles and clear to auscultation bilaterally AUSCULTATION: clear to auscultation bilaterally Cardio: COMMON NORMALS: regular rate and regular rhythm RATE: regular rate RHYTHM: regular rhythm Back/Pelvis: OTHER: Straight leg raise positive on the left. She is endorsing tenderness to very light palpation to the left lower back, no spinous process tenderness. No signs of trauma, bruising, or deformity otherwise. Extremity: COMMON NORMALS: normal to inspection, full ROM, capillary refill normal, no joint enlargement and no clubbing, cyanosis or edema NARRATIVE EXTREMITY EXAM: Tenderness to palpation left lateral hip with no deformity noted. Distal neurovascular exam of the left lower extremity is intact. Neuro: COMMON NORMALS: patient oriented x3, moves all extremities, no focal motor deficits and no sensory deficits noted SENSORIUM/ORIENTATION: Yes alert MENINGEAL SIGNS: Yes no meningeal signs Skin: COMMON NORMALS: no rashes or lesions noted GENERAL SKIN EXAM: no rashes or lesions noted Course Vital Signs: Vital signs: Vital Signs Temperature 98.4 F 10/14/24 11:40 Pulse Rate 89 10/14/24 11:40 Respiratory Rate 17 10/14/24 11:40 Blood Pressure 122/88 10/14/24 11:40 Pulse Oximetry 100 10/14/24 11:40 Oxygen Delivery Me thod Room Air 10/14/24 11:40 MDM - Extremity (Nontraumatic) Medical Decision Making Patient presenting with left low back and left hip pain after tripping up stairs. Took Toradol with no relief, no red flag symptoms with her history or on examination in terms of symptoms of cauda equina or history of cancer or IV drug use. She has been ambulatory though with an antalgic gait. Neurovascular exam normal on exam. X-ray of the left hip and pelvis was negative. Attempted to treat with Norflex and [place] here, she was still having pain so lumbar spine CT showing disc bulge at L4-L5 that could be explaining her symptoms of radiculopathy. Ultimately she is neurologically intact, and after imaging is done she states she does feel a little bit better after medications and we will refer her to Ortho/spine. She has followed with pain management in the past but after failing physical therapy states that she was unable to follow-up after this. She is given education on further management at home and strict return precautions given. Patient agrees with this plan. Urinalysis was ordered to rule out any potential causes from cystitis, this was negative. Lab Data Radiology Impressions Hip/Pelvis X-Ray 10/14/24 12:46 IMPRESSION: No acute osseous plain-film findings. Lumbar Spine CT 10/14/24 15:43 IMPRESSION: L4-L5 interval development moderate broad-based posterior disc bulge/protrusion slightly eccentric to the right and mildly narrowing the canal. Laboratory Results Urine Color Yellow (Yellow) 10/14/24 15:46 Urine Appearance Clear (CLEAR) 10/14/24 15:46 Urine pH 8.0 (5-7) A 10/14/24 15:46 Ur Specific [place] 1.013 (1.005-1.030) 10/14/24 15:46 Urine Protein Negative (Negative) 10/14/24 15:46 Urine Glucose (UA) Negative (Normal) 10/14/24 15:46 Urine Ketones Negative (Negative) 10/14/24 15:46 Urine Blood Negative (Negative) 10/14/24 15:46 Urine Nitrate Negative (Negative) 10/14/24 15:46 Urine Bilirubin Negative (Negative) 10/14/24 15:46 Urine Urobilinogen 0.2 mg/dL (Negative) 10/14/24 15:46 Ur Leukocyte Esterase Negative (Negative) 10/14/24 15:46 Urine RBC 0-2 /hpf (0-2) 10/14/24 15:46 Urine WBC 0-5 /hpf (0-5) 10/14/24 15:46 Ur Squamous Epith Cells 0-5 /hpf (0-5) 10/14/24 15:46 Amorphous Sediment Not Reportable 10/14/24 15:46 Urine Bacteria Trace /hpf (NONE) 10/14/24 15:46 Hyaline Casts 0.81 /lpf 10/14/24 15:46 All radiology interpretation(s) finalized by discharge Discharge Plan Discharge Patient Disposition: Home Clinical Impression: Degenerative disc disease Qualifiers: Spinal region: lumbar Disc-related pain type: discogenic back pain and lower extremity pain Qualified Code(s): M51.362 - Other intervertebral disc degeneration, lumbar region with discogenic back pain and lower extremity pain Condition: Stable Prescriptions: No Action clindamycin HCl 300 mg capsule 300 mg PO TID Qty: 21 0RF methylprednisolone [Medrol (Ryan)] 4 mg tablets,dose pack See Rx Instructions PO PER PKG DIR Qty: 21 0RF Rx Instructions: PO PER PKG DIR levothyroxine 200 mcg tablet 200 mcg PO QAM lamotrigine [Lamictal] 200 mg tablet 200 mg PO BID metformin 1,000 mg tablet 1,000 mg PO BID Vraylar 4.5 mg capsule 4.5 mg PO QAM ketorolac 10 mg tablet 10 mg PO Q8H PRN (Reason: pain) Qty: 15 0RF metoclopramide HCl 10 mg tablet 10 mg PO Q6H PRN (Reason: nausea and vomiting) Qty: 20 0RF cyclobenzaprine 5 mg tablet 5 mg PO Q8H Qty: 10 0RF hydrocodone-acetaminophen 5-325 mg tablet 1 tab PO Q6H PRN (Reason: pain) Qty: 28 0RF cyclobenzaprine 10 mg tablet 10 mg PO Q12H Qty: 14 0RF Discharge Orders: Discharge ED (Routine); Ordered 10/14/24 Ordered By: Rich Lyons Referrals: Jenna eDan FNP [Primary Care Provider, Unknown] Patient Instructions: Patient Portal & [place]hung Instructions Activity Restrictions/Additional Instructions: Discharge Instructions: [facility] Diagnosis: L4-L5 disc protrusion with left-sided radicular pain. No red flag symptoms (no cauda equina, progressive motor deficit, infection, or malignancy). Prognosis: Most patients with lumbar disc herniation and radiculopathy improve with conservative management over 6 weeks. Surgical intervention is rarely required unless symptoms persist or worsen, or if new neurologic deficits develop. Home Management: - Activity: Remain as active as tolerated. Avoid prolonged bed rest, which is not beneficial and may delay recovery. Gentle walking and light activities are encouraged. - Pain Control: Use NSAIDs (e.g., ibuprofen) as needed for pain, unless contraindicated. Monitor for gastrointestinal side effects. Acetaminophen may be considered if NSAIDs are not tolerated. Opioids should be avoided except for severe, refractory pain and only for short-term use. - Physical Therapy: Begin or continue exercise-based physical therapy, focusing on individualized activity, directional preference exercises (e.g., Siri method), and functional movement training. Supervised exercise may provide modest short-term pain relief. - Patient Education: Understand that most cases improve over time. Avoid terms like ruptured disc ?the disc is protruded, not severely damaged. Maintain realistic expectations regarding recovery. - Other Modalities: There is moderate evidence for mobilization/manipulation and neural mobilization. Traction may provide short-term relief but is not superior for long-term outcomes. Epidural steroid injections may be considered for severe pain unresponsive to other measures, but benefits are typically short-term and risks must be weighed. Follow-Up: - Referral to orthopedic/airborne and air delivery specialist is in place for further evaluation and management. Return Precautions: - Seek immediate medical attention for any of the following: - New or worsening weakness in the legs - Loss of bowel or bladder control (incontinence or retention) - Saddle anesthesia (numbness in the groin/perineal area) - Severe, unremitting pain not controlled with home measures - Signs of infection (fever, chills, unexplained weight loss) - Progressive sensory loss Additional Notes: - Imaging (MRI) is reserved for cases with persistent symptoms beyond 4?6 weeks, or if considering invasive interventions. - Most patients recover without surgery; surgical options may be discussed if pain or disability persists despite optimal conservative management. Print Language: Belarusian Coding Level of Care Code ED Manager Editorial for Milka Ramachandran
[2024-10-14] MEDS: HYDROcodone-acetaminophen 7.5-325 mg Tablet 1 TAB PO (15:20)
--- NOTE | 2024-10-14 15:43 | CTR_ITS ---
PROCEDURE INFORMATION: Exam: CT Lumbar Spine Without Contrast Exam date and time: 10/14/2024 3:47 PM Age: 39 years old Clinical indication: Low back pain; Additional info: Severe low back pain, no relief from meds TECHNIQUE: Imaging protocol: Computed tomography of the lumbar spine without contrast. Radiation optimization: All CT scans at this facility use at least one of these dose optimization techniques: automated exposure control; mA and/or kV adjustment per patient size (includes targeted exams where dose is matched to clinical indication); or iterative reconstruction. COMPARISON: MR lumbar spine wo con* [id number] 23/10/2020 21:39 RADIATION DOSE METRICS: Total DLP (mGy-cm): 864.4 FINDINGS: Bones/joints: Detailed axial source and reconstructed image sets demonstrate no discrete linear areas of decreased density as might indicate presence of the fracture. Coronal reconstructions demonstrate minimal convexity being directed to the left. Sagittal reconstructions demonstrate alignment to be unremarkable. L1-L2: No significant disc bulge or herniation. No severe spinal canal stenosis. No significant neural foraminal narrowing. L2-L3: No significant disc bulge or herniation. No severe spinal canal stenosis. No significant neural foraminal narrowing. L3-L4: No significant disc bulge or herniation. No severe spinal canal stenosis. No significant neural foraminal narrowing. L4-L5: Moderate broad-based posterior disc bulge/protrusion minimally eccentric to the right moderately effacing the anterior aspect of the thecal sac. Mild canal narrowing is seen here. This is best noted on image 76 of series. Sagittal images demonstrate no evidence of any significant disc space narrowing at this level. L5-S1: Mild right central lateral posterior disc bulge is seen without significant involvement of the thecal sac or nerve roots. A conjoined root on the left is seen accounting for asymmetry in appearance of the S1 roots. These findings are best seen on image 90 of series 4. Soft tissues: Prominent subcutaneous soft tissues. CT/CT lumbar spine wo con* [id number] IMPRESSION: L4-L5 interval development moderate broad-based posterior disc bulge/protrusion slightly eccentric to the right and mildly narrowing the canal.
[2024-10-14 16:00] LABS: Glucose Urine UA Negative (Normal); Nitrate Urine Negative (Negative); Specific Gravity, Urine 1.013 (1.005-1.030)
[2024-10-14 16:03] LABS: Add Urine Microscopic? YES
--- NOTE | 2024-10-15 05:11 | DCPLANNER ---
Message sent to Ortho for referral-Patient presenting with left low back and left hip pain after tripping up stairs. Took Toradol with no relief, no red flag symptoms with her history or on examination in terms of symptoms of cauda equina or history of cancer or IV drug use. She has been ambulatory though with an antalgic gait. Neurovascular exam normal on exam. X-ray of the left hip and pelvis was negative. Attempted to treat with Norflex and [place] here, she was still having pain so lumbar spine CT showing disc bulge at L4-L5 that could be explaining her symptoms of radiculopathy. Ultimately she is neurologically intact, and after imaging is done she states she does feel a little bit better after medications and we will refer her to Ortho/spine. She has followed with pain management in the past but after failing physical therapy states that she was unable to follow-up after this. She is given education on further management at home and strict return precautions given. Patient agrees with this plan. Urinalysis was ordered to rule out any potential causes from cystitis, this was negative.
== END 2024-10-14 16:53 | disposition home or self-care (01) ==
PROVIDERS: Emergency Provider Physician Assistant; PCP Nurse Practitioner Family
DX: M51.362 Other intervertebral disc degeneration, lumbar region with discogenic back pain and lower extremity pain (principal); Z79.84 Long term (current) use of oral hypoglycemic drugs; M25.552 Pain in left hip
CPT/HCPCS: 72131; 73502; 81001; 96372; 99284; J2360; J9999

== ENCOUNTER 2024-10-16 19:59 | Emergency (ER) | payer MEDICARE, SELFPAY ==
[2024-10-16 20:01] VITALS: BP 121/81; PULSE 104; RESP 18; TEMP 37.1; O2SAT 100; BMI 40.8
--- NOTE | 2024-10-16 20:52 | ED_ITS ---
HPI - Back Pain/Injury 2 General: Chief Complaint: Back Pain/Injury Stated Complaint: severe back pain, feeling pressure in rectum Time Seen by Provider: 10/16/24 20:25 History of Present Illness: Patient is a 39-year-old female who was seen in the ED last with low back pain. At that time, she had an X-ray which was negative for fracture, followed by a CT scan that revealed a bulging disc at L4-L5. Since then, her symptoms have progressively worsened despite multiple home interventions. The patient reports severe pain in her lower back radiating to both hips, worse on the right side. She describes new concerning symptoms including pressure in her rectum, urinary incontinence ( peeing on herself a couple times today ), and numbness/tingling in her feet. She also reports that her legs feel weak ( like Jell-O ) and she has experienced episodes of falling. Most concerning, she reports decrease in sensation in the perineal/rectal area. The patient has had difficulty sleeping due to pain and has been unable to find a comfortable position. Home remedies attempted include muscle relaxants, ice, heat, pool therapy, hot soaks, and even taking a family member's pain medication, all without relief. The patient denies fever or other signs of infection. Related Data Home Medications ?Medication ?Instructions ?Recorded ?Confirmed levothyroxine 200 mcg tablet 200 mcg PO QAM 08/16/20 0 06/21/24 lamotrigine 200 mg tablet 200 mg PO BID 10/23/2006/21 (Lamictal) cariprazine 4.5 mg capsule 4.5 mg PO QAM 04/05/2205/26 (Vraylar) metformin 1,000 mg tablet 1,000 mg PO BID 04/05/22 Previous Rx's ?Medication ?Instructions ?Recorded cyclobenzaprine 10 mg tablet 10 mg PO Q12H #14 tabs hydrocodone 5 mg-acetaminophen 325 1 tab PO Q6H PRN pa in #28 tabs 05/03/24 mg tablet clindamycin HCl 300 mg capsule 300 mg PO TID #21 caps 05/19/24 methylprednisolone 4 mg tablets in See Rx Instructions PO PER PKG DIR 05/31/24 a dose pack (Medrol (Ryan)) #21 ea cyclobenzaprine 5 mg tablet 5 mg PO Q8H #10 tabs 10/10 ketorolac 10 mg tablet 10 mg PO Q8H PRN pain #15 ta bs 10/10/24 metoclopramide HCl 10 mg tablet 10 mg PO Q6H PRN nause a and 10/10/24 vomiting #20 tabs Allergies Allergy/AdvReac Type Severity Reaction Status Date / Time vancomycin Allergy Unknown 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 No pertinent past medical history Denies diabetes, asthma, hypertension, seizures, DVT/PE PCP: NEEL Evangelista Hypothyroidism Diagnosed at the age of 13 and is controlled by her primary care provider and medication. Does not have an cut out worker. Major depressive disorder, recurrent severe without psychotic features Diagnosed with bipolar disorder at the age of 13 and is on medication managed by [facility]. She sees a therapist once a week and the nurse practitioner at [facility] every 4 to 6 weeks. Surgical History History of laparoscopy (~05/22/22) Laparoscopic retrieval of intra-abdominal/pelvic IUD;performed by Dr. Noriega at [facility]. Status post tubal ligation 2015 at time of second performed by Dr. Becker at [facility] History of carpal tunnel surgery Left hand in 2010 and right wrist in February [address] Almonte. H/O esophagogastroduodenoscopy (11/08/19) History of cholecystectomy Laparoscopic procedure in 2012 History of x 2 2014 and . Family History Grandmother Breast cancer maternal, diagnosed in her late 70s Heart disease maternal Hypertension maternal Grandfather Diabetes paternal Heart disease maternal and paternal Brother Heart disease Mother Hypertension Denies family history of Colon cancer Ovarian cancer Hyperlipidemia Uterine cancer Thyroid disease Stroke Social History Smoking and tobacco/nicotine status: never used tobacco/nicotine Alcohol intake: current Alcohol intake frequency: holidays/special occasions only Substance/Drug Use: never Physical Exam 2 Const: GENERAL APPEARANCE: cooperative; not ill appearing and not frail appearing HENMT: COMMON NORMALS: normocephalic, atraumatic and Normal external nose present HEAD & SCALP: normocephalic and atraumatic FACE & SINUS: normal facial exam and face symmetric NOSE: Normal external nose present Eye: COMMON NORMALS: Equal, round and reactive pupils present and EOMs intact bilaterally PUPIL: Yes Equal, round and reactive pupils present Neck/C-Spine: GENERAL: Yes trachea midline Chest: CHEST: Yes Symmetrical chest wall rise Resp: COMMON NORMALS: normal respiratory effort, No retractions, No use of accessory muscles and clear to auscultation bilaterally AUSCULTATION: clear to auscultation bilaterally Cardio: COMMON NORMALS: regular rate and regular rhythm RATE: regular rate RHYTHM: regular rhythm Back/Pelvis: OTHER: Examination of lumbar spine reveals tenderness over L5 in the midline. There is minimal muscle spasm. Straight leg raise testing invokes radicular pain at least to the knee bilaterally. Sensation is intact to touch, although subjectively decreased. Toes are downgoing. Pulses are normal distally to the lower extremities. Neuro: [place] COMA SCALE: document GCS findings [place] coma scale eye opening: Spontaneous [place] coma scale verbal response: Orientated [place] coma scale motor response: Obey commands [place] coma scale total score: 15 S ENSORY EXAM: Yes extremities (intact) Psych: COMMON NORMALS: speech normal SPEECH: Yes normal speech Skin: NARRATIVE SKIN EXAM: ecchymosis LUQ Course 2 Vital Signs: Vital signs: Vital Signs Temperature 98.7 F 10/16/24 20:01 Pulse Rate 105 H 10/16/24 22:42 Respiratory Rate 18 10/16/24 20:01 Blood Pressure 136/87 10/16/24 22:42 Pulse Oximetry 97 10/16/24 22:42 Oxygen Delivery Me thod Room Air 10/16/24 20:01 MDM - Back Pain/Injury Medical Decision Making Postvoid residual by bladder scan is 3. She has symptoms concerning for potential cauda equina syndrome. No MRI availability here this evening or tomorrow. No choice but to transfer to a facility with MR capability from the emergency department. Talk to our counterparts at [facility] in [place]. They are willing to take and transfer ER to ER for MRI scan. She has been given 1 mg Dilaudid, 30 mg Toradol, 125 mg Solu-Medrol, and 4 Zofran IV. She is given 2 mg of lorazepam for ambulance transport. She is stable for transport otherwise. Labs 10/16/24 22:15 10/16/24 22:15 Laboratory Results WBC 9.12 10^3/uL (3.29-11.43) 10/16/24 22:15 RBC 4.30 10^6/uL (3.85-5.65) 10/16/24 22:15 Hgb 12.00 g/dL (11.27-16.99) 10/16/24 22:15 Hct 37.5 % (36-47) 10/16/24 22:15 MCV 87.2 fl (85-98) 10/16/24 22:15 MCH 27.9 pg (27-33) 10/16/24 22:15 MCHC 32.0 g/dL (30-55) 10/16/24 22:15 RDW 13.2 % (12.1-15.1) 10/16/24 22:15 Plt Count 312 10^3/cmm (157-399) 10/16/24 22:15 MPV 11.1 fL (7.4-10.4) H 10/16/24 22:15 Neut % (Auto) 53.2 % 10/16/24 22:15 Lymph % (Auto) 33.7 % 10/16/24 22:15 [place] % (Auto) 7.9 % 10/16/24 22:15 Eos % (Auto) 3.6 % 10/16/24 22:15 Baso % (Auto) 1.4 % 10/16/24 22:15 Neut # (Auto) 4.85 10^3/uL (1.8-7.7) 10/16/24 22:15 Lymph # (Auto) 3.1 10^3/uL (0.8-4.8) 10/16/24 22:15 [place] # (Auto) 0.7 10^3/uL (0.2-0.9) 10/16/24 22:15 Eos # (Auto) 0.3 10^3/uL (0.0-0.8) 10/16/24 22:15 Baso # (Auto) 0.1 10^3/uL (0.0-0.1) 10/16/24 22:15 Nucleated RBC % (auto) 0 % 10/16/24 22:15 Nucleated RBCs # 0.0 /100WBC 10/16/24 22:15 ESR 9 mm/hr (0-15) 10/16/24 22:15 Sodium 140 mmol/L (136-145) 10/16/24 22:15 Potassium 4.3 mmol/L (3.5-5.1) 10/16/24 22:15 Chloride 107 mmol/L (98-107) 10/16/24 22:15 Carbon Dioxide 20 mmol/L (22-29) L 10/16/24 22:15 Anion Gap 17.3 (5-19) 10/16/24 22:15 BUN 7 mg/dL (6-20) 10/16/24 22:15 Creatinine 0.7 mg/dL (0.5-0.9) 10/16/24 22:15 GFR Calculation 94.2 mL/min (90-130) 10/16/24 22:15 Glucose 105 mg/dL (65-115) 10/16/24 22:15 Calculated Osmolality 288 mOsm/kg (285-295) 10/16/24 22:15 Calcium 9.3 mg/dL (8.5-10.5) 10/16/24 22:15 Total Bilirubin 0.5 mg/dL (0.15-1.2) 10/16/24 22:15 AST 11 U/L (0-32) 10/16/24 22:15 ALT 11 U/L (0-33) 10/16/24 22:15 Alkaline Phosphatase 76 U/L (35-105) 10/16/24 22:15 C-Reactive Protein 3.0 mg/L (0.0-4.9) 10/16/24 22:15 Total Protein 7.2 g/dL (6.6-8.7) 10/16/24 22:15 Albumin 4.2 g/dL (3.5-5.2) 10/16/24 22:15 Globulin 3.0 g/dL (1.3-4.6) 10/16/24 22:15 HCG, Qual Negative (Negative) 10/16/24 22:15 Urine Color Yellow (Yellow) 10/16/24 21:00 Urine Appearance Clear (CLEAR) 10/16/24 21:00 Urine pH 7.0 (5-7) 10/16/24 21:00 Ur Specific [place] 1.013 (1.005-1.030) 10/16/24 21:00 Urine Protein Negative (Negative) 10/16/24 21:00 Urine Glucose (UA) Negative (Normal) 10/16/24 21:00 Urine Ketones Negative (Negative) 10/16/24 21:00 Urine Blood Negative (Negative) 10/16/24 21:00 Urine Nitrate Negative (Negative) 10/16/24 21:00 Urine Bilirubin Negative (Negative) 10/16/24 21:00 Urine Urobilinogen 0.2 mg/dL (Negative) 10/16/24 21:00 Ur Leukocyte Esterase Negative (Negative) 10/16/24 21:00 Urine RBC 0-2 /hpf (0-2) 10/16/24 21:00 Urine WBC 0-5 /hpf (0-5) 10/16/24 21:00 Ur Squamous Epith Cells 0-5 /hpf (0-5) 10/16/24 21:00 Amorphous Sediment Not Reportable 10/16/24 21:00 Urine Bacteria None seen /hpf (NONE) 10/16/24 21:00 Hyaline Casts 0-4 /lpf H 10/16/24 21:00 No radiology studies performed this visit Discharge Plan Discharge Patient Disposition: Xfer Short-Term Hosp Clinical Impression: Lumbar stenosis with neurogenic claudication Condition: Stable Referrals: Jenna Dean FNP [Primary Care Provider, Unknown] Print Language: Mauritanian Coding Level of Care Code ED Double Spindle Shaper Operator for Milka Ramachandran
[2024-10-16] MEDS: ondansetron 2 mg/ML SDV 2 mL 4 MG IVP (21:09)
[2024-10-16] MEDS: HYDROmorphone 0.5 MG/0.5 ML INJ 1 MG IVP (21:11)
[2024-10-16] MEDS: methylPREDNISolone sod succ 125 mg/2 mL INJ IVP (21:18)
[2024-10-16 21:49] LABS: Glucose Urine UA Negative (Normal); Nitrate Urine Negative (Negative); Specific Gravity, Urine 1.013 (1.005-1.030)
[2024-10-16 21:54] LABS: Add Urine Microscopic? YES
[2024-10-16 22:22] LABS: Hematocrit 37.5 % (36-47); Hemoglobin 12.00 g/dL (11.27-16.99); Mean Corpuscular HGB Conc 32.0 g/dL (30-55); Mean Corpuscular Hemoglobin 27.9 pg (27-33); Mean Corpuscular Volume 87.2 fl (85-98); Nucleated Red Blood Cells % 0 %; Platelet Count 312 10^3/cmm (157-399); Red Blood Count 4.30 10^6/uL (3.85-5.65); White Blood Count 9.12 10^3/uL (3.29-11.43)
[2024-10-16] MEDS: metoclopramide 5 mg/mL SDV 2 mL 10 MG IVP (22:36)
[2024-10-16 22:38] LABS: Alanine Aminotransferase 11 U/L (0-33); Albumin Level 4.2 g/dL (3.5-5.2); Alkaline Phosphatase 76 U/L (35-105); Anion Gap 17.3 (5-19); Aspartate Amino Transferase 11 U/L (0-32); Blood Urea Nitrogen 7 mg/dL (6-20); Calcium 9.3 mg/dL (8.5-10.5); Carbon Dioxide 20 mmol/L (22-29); Chloride 107 mmol/L (98-107); Creatinine Clr Calc Pharmacy 117.8979; Globulin 3.0 g/dL (1.3-4.6); Glucose 105 mg/dL (65-115); Osmolality Calculated 288 mOsm/kg (285-295); Potassium 4.3 mmol/L (3.5-5.1); Sodium 140 mmol/L (136-145); Total Protein 7.2 g/dL (6.6-8.7)
[2024-10-16 22:42] VITALS: BP 136/87; PULSE 105; O2SAT 97
[2024-10-16] MEDS: LORazepam 1 MG/0.5 ML injection 2 MG IVP (22:47)
[2024-10-16 22:58] LABS: HCG, Serum Qual Negative (Negative)
[2024-10-16 23:28] VITALS: BP 135/90; PULSE 101; O2SAT 96
== END 2024-10-16 22:45 | disposition short-term general hospital (02) ==
PROVIDERS: Emergency Provider Emergency Medicine; PCP Nurse Practitioner Family
DX: M48.062 Spinal stenosis, lumbar region with neurogenic claudication (principal)
CPT/HCPCS: 36415; 80053; 81001; 84703; 85025; 85651; 86140; 96374; 96375; 99285; J1171; J1885; J2060; J2405; J2765; J2919

== ENCOUNTER → 2024-12-22 07:35 | Outpatient (BNVA) | payer MEDICARE, SELFPAY | PROVIDERS: PCP Nurse Practitioner Family; Visit Provider Podiatrist Foot & Ankle Surgery | DX: M79.671 Pain in right foot (principal); M76.821 Posterior tibial tendinitis, right leg | CPT/HCPCS: 73610; 73630; 99214 ==

== ENCOUNTER 2025-01-04 09:17 | Outpatient (CLI) | payer MEDICARE, SELFPAY ==
--- NOTE | 2025-01-04 09:30 | MRR_ITS ---
PROCEDURE INFORMATION: Exam: MR Right Lower Extremity Joint Without and With Contrast; Ankle Exam date and time: 01/04/2025 9:40 AM Age: 39 years old Clinical indication: Injury or trauma; Sprain or strain; Prior surgery; Surgery date: 6+ months; Surgery type: Right ankle 02/2024; Possible tendon tear, prior fall and surgery, pain post op; Additional info: Tendon tear, right ankle TECHNIQUE: Imaging protocol: Magnetic resonance imaging of the right lower extremity without and with contrast. Exam focused on the ankle. Contrast material: MULTIHANCE; Contrast volume: 20 ml; Contrast route: INTRAVENOUS (IV); COMPARISON: MR ankle RT wo con* [id number] 02/24/2024 6:59 AM FINDINGS: Bones/joints: Mild reactive edema in the talus and calcaneus adjacent to the tarsal sinus. Otherwise unremarkable. LIGAMENTS: Distal tibiofibular syndesmosis: The syndesmotic ligaments are normal. Anterior talofibular ligament: The anterior talofibular ligament is normal in signal with mild thickening consistent with chronic partial-thickness tear. Posterior talofibular ligament: The posterior talofibular ligament is normal. Calcaneofibular ligament: Calcaneofibular ligament is normal in appearance. Deltoid ligament complex: Deltoid ligament is normal. TENDONS: Flexor tendons of foot: The flexor digitorum longus and flexor hallucis longus tendons are normal. Tibialis posterior tendon: Posterior tibial tendon is normal. Peroneal tendons: Flattening with U shaped configuration of the retromalleolar peroneus brevis tendon, consistent with longitudinal split tear. Peroneus longus is normal. Extensor tendons of foot: The extensor tendons are unremarkable. Tibialis anterior tendon: Unremarkable as visualized. Achilles tendon: The Achilles tendon is unremarkable. Tarsal canal (Sinus tarsi): Loss of normal fat signal in the sinus tarsi consistent with sinus tarsi syndrome. Tarsal tunnel: Unremarkable. Soft tissues: Postoperative change and scarring with small foci of metallic artifact of the posteromedial soft tissue of the ankle, series 401, image 12. Plantar fascia: Mild thickening of the plantar fascia with normal signal consistent with chronic plantar fasciitis. MR/MR ankle RT wo/w con [id number] IMPRESSION: 1. Longitudinal split tear of the peroneus brevis tendon as described. 2. Stable findings of sinus tarsi syndrome. 3. Chronic partial tear of the ATFL. 4. Chronic plantar fasciitis.
== END 2025-01-04 09:18 | disposition home or self-care (01) ==
LOC: RAD 09:18
PROVIDERS: PCP Nurse Practitioner Family; Visit Provider Podiatrist Foot & Ankle Surgery
DX: S93.491A Sprain of other ligament of right ankle, initial encounter (principal); S86.311A Strain of muscle(s) and tendon(s) of peroneal muscle group at lower leg level, right leg, initial encounter; X58.XXXA Exposure to other specified factors, initial encounter; M75.111 Incomplete rotator cuff tear or rupture of right shoulder, not specified as traumatic; M25.571 Pain in right ankle and joints of right foot; M72.2 Plantar fascial fibromatosis
CPT/HCPCS: 73723

== ENCOUNTER → 2025-01-11 10:31 | Outpatient (BNVA) | payer MEDICARE, SELFPAY | PROVIDERS: PCP Nurse Practitioner Family; Visit Provider Podiatrist Foot & Ankle Surgery | DX: M76.821 Posterior tibial tendinitis, right leg (principal) | CPT/HCPCS: 99213 ==